=== PATIENT | female | born 1945 | race Caucasian/White ===

== ENCOUNTER → 2018-03-03 | Outpatient (CLI) | payer MEDICARE, OTHER ==
[~2018-03-03] MED LIST: ASPI-875 PO; ATOR20TA66 PO; CHOL400T24 PO; GLUC-132 PO; OMG1KC PO; ONDAN4ODT PO; PARO20TA57 PO; UBID200C PO; [UNRECOGNIZED DRUG - CODE] PO
--- NOTE | 2018-03-03 11:41 | Diagnostic Imaging Report ---
INDICATION: COUGH. TECHNIQUE: Two views of the chest COMPARISON: 01/08/2015 FINDINGS: The lung volumes are normal. No focal consolidation is seen. No large pleural effusion or pneumothorax is seen. The cardiomediastinal silhouette is normal in size and contour. No acute osseous abnormality is seen. IMPRESSION: No acute pulmonary abnormality seen. Report was called to Li/office c/o Elsi Madison by sesar at 11:40 am. Dictated by: Dictated on workstation # [id number]
== END ==
LOC: RAD 11:03
PROVIDERS: ATTEND Nurse Practitioner Family
DX: R05 Cough (principal)
CPT/HCPCS: 71046

== ENCOUNTER 2018-04-30 08:25 | Outpatient (RCR) | payer MEDICARE, OTHER | END 2018-05-02 | disposition home or self-care (01) | LOC: CR3 08:25 | PROVIDERS: ATTEND Family Medicine | DX: Z29.8 Encounter for other specified prophylactic measures (principal) ==

== ENCOUNTER → 2018-06-02 | Outpatient (RCR) | payer MEDICARE, OTHER | END | disposition home or self-care (01) | LOC: CR3 05-03 09:04 | PROVIDERS: ATTEND Family Medicine | DX: Z29.8 Encounter for other specified prophylactic measures (principal) ==

== ENCOUNTER 2018-07-02 06:21 | Outpatient (RCR) | payer MEDICARE, OTHER | END 2018-07-03 | disposition home or self-care (01) | LOC: CR3 06:21 | PROVIDERS: ATTEND Family Medicine | DX: Z29.8 Encounter for other specified prophylactic measures (principal) ==

== ENCOUNTER 2018-07-30 08:34 | Outpatient (RCR) | payer MEDICARE, OTHER | END 2018-08-05 | disposition home or self-care (01) | LOC: CR3 08:34 | PROVIDERS: ATTEND Family Medicine | DX: Z29.8 Encounter for other specified prophylactic measures (principal) ==

== ENCOUNTER 2018-10-06 08:48 | Outpatient (RCR) | payer MEDICARE, OTHER | END 2018-10-07 | disposition home or self-care (01) | LOC: CR3 08:48 | PROVIDERS: ATTEND Family Medicine | DX: Z29.8 Encounter for other specified prophylactic measures (principal) ==

== ENCOUNTER 2018-10-20 14:30 | Outpatient (CLI) | payer MEDICARE, OTHER ==
[~2018-10-20] VITALS: Ht 160 cm; Wt 82.1 kg
[2018-10-20] MEDS ORDERED: OMG1KC PO (14:44)
[2018-10-20] MEDS ORDERED: MULT-35 PO (14:57)
[2018-10-20] MEDS ORDERED: ASPI-999 PO (14:57)
[2018-10-20] MEDS ORDERED: CHOL100048 PO (14:57)
[2018-10-20] MEDS ORDERED: ATOR40TA70 PO (14:57)
[2018-10-20] MEDS ORDERED: FLUO40CA12 PO (14:57)
[2018-10-20] MEDS ORDERED: UBID100C44 PO (14:57)
== END 2018-10-20 14:59 ==
LOC: PREOP 14:30
PROVIDERS: ATTEND Surgery
DX: Z01.818 Encounter for other preprocedural examination (principal)

== ENCOUNTER 2018-10-22 12:33 | Day surgery (SDC) | payer MEDICARE, OTHER ==
[~2018-10-22] VITALS: Ht 160 cm; Wt 82.1 kg
[~2018-10-22 12:33] MED LIST changes: +ASPI-999 PO; +ATOR40TA70 PO; +CHOL100048 PO; +FLUO40CA12 PO; +MULT-35 PO; +UBID100C44 PO
[2018-10-22 12:45] VITALS: BP 136/75
[2018-10-22] MEDS ORDERED: NS IV 500 ML 500 ML IV PRN (12:53)
[2018-10-22] MEDS ORDERED: NS IV 500 ML 500 ML ONE (12:58)
[2018-10-22] MEDS ORDERED: MIDAZOLAM 2 MG/2 ML (VERSED) VIAL IVP ONE (13:00)
[2018-10-22] MEDS ORDERED: LIDOCAINE JELLY 2% 6 ML SYRINGE MM PRN (13:00)
[2018-10-22] MEDS ORDERED: fentaNYL INJECTION 100 MCG/2 ML AMP IVP ONE (13:00)
[2018-10-22] MEDS ORDERED: fentaNYL INJECTION 100 MCG/2 ML AMP ONE (14:19)
[2018-10-22] MEDS ORDERED: LIDOCAINE JELLY 2% 6 ML SYRINGE ONE (14:19)
[2018-10-22] MEDS ORDERED: MIDAZOLAM 2 MG/2 ML (VERSED) VIAL ONE ×5 (14:20)
--- NOTE | 2018-10-22 14:26 | Conscious Sedation/ASA ---
Conscious Sedation Pre-Proced Time 14:20 ASA Score 2 For ASA 3 and 4: Consider anesthesia and medical clearance. Also, for patients with a history of failed moderate sedation consider anesthesia. Airway Lungs Heart ASA score ASA 1: a normal healthy patient ASA 2: a patient with a mild systemic disease (mid diabetes, controlled hypertension, obesity ASA 3: a patient with a severe systemic disease that limits activity (angina , COPD, prior Myocardial infarction) ASA 4: a patient with an incapacitating disease that is a constant threat to life (CHF, renal failure) ASA 5: a moribund patient not expected to survive 24 hrs. (ruptured aneurysm) ASA 6: a declared brain patient whose organs are being harvested. For emergent operations, add the letter E after the classification Mallampati Classification Grade 2 Sedation Plan Analgesia, Amnesia, Plan communicated to team members, Discussed options with patient/fam, Discussed risks with patient/fam The patient is an appropriate candidate to undergo the planned procedure, sedation, and anesthesia. The patient immediately re-assessed prior to indication. UMESH SCHMITZ MD Oct 22, 2018 14:26
--- NOTE | 2018-10-22 14:27 | Progress Note-Pre Operative ---
Pre-Operative Progress Note H&P Reviewed The H&P was reviewed, patient examined and no changes noted. Date Seen by Provider: Oct 22, 2018 Time Seen by Provider: 14:20 Date H&P Reviewed: Oct 22, 2018 Time H&P Reviewed: 14:20 Pre-Operative Diagnosis: GERD, screening colonoscopy UMESH SCHMITZ MD Oct 22, 2018 14:27
--- NOTE | 2018-10-22 14:29 | Discharge Inst-Surgical ---
D/C Lap Instructions-NADIR Follow Up 10 yrs Activity as tolerated High Fiber Diet 25g or more per day Avoid Alcohol, Caffeine, Spicy [place] and Acid foods. Drink 64 fluid oz or more of fluids per day. Symptoms to Report: Fever over 101 degree F, Nausea/Vomiting If any problems/questions: Contact your physician or go to Emergency Room UMESH SCHMITZ MD Oct 22, 2018 14:29
[2018-10-22] MEDS ORDERED: ACETAMINOPHEN 325 MG TABLET PO PRN (14:30)
[2018-10-22] MEDS ORDERED: HYDROcodone/APAP 5 MG/325 MG (LORTAB) TAB PO PRN (14:30)
[2018-10-22] MEDS ORDERED: ONDANSETRON 4 MG/2 ML (SDV) Z0FRAN IV PRN (14:30)
[2018-10-22] MEDS ORDERED: morphine INJ 10 MG/ML 1ML (SYR OR VIAL) IV PRN (14:30)
[2018-10-22 15:20] VITALS: BP 145/90
[2018-10-22 16:00] VITALS: BP 140/88
[2018-10-22 16:54] VITALS: BP 140/88
--- NOTE | 2018-10-22 16:54 | Progress Note-Post Operative ---
Post-Operative Progess Note Surgeon (s)/Silk Washing Machine Operator (s) Surgeon UMESH SCHMITZ MD Silk Washing Machine Operator: none Pre-Operative Diagnosis screening colonoscopy Post-Operative Diagnosis normal colonoscopy. Procedure & Operative Findings Date of Procedure 10/22/18 Procedure Performed/Findings Colonoscopy. Anesthesia Type CS Estimated Blood Loss Estimated blood loss (mL): minimal Specimens/Packing Specimens Removed none UMESH SCHMITZ MD Oct 22, 2018 16:54
--- NOTE | 2018-10-23 03:09 | OPERATIVE REPORT ---
DATE OF SERVICE: 10/22/2018 ATTENDING PRIMARY CARE PHYSICIAN: Dr. Cook. PREOPERATIVE DIAGNOSIS: History of colon polyp. POSTOPERATIVE DIAGNOSIS: Normal colon and rectum. PROCEDURE: Colonoscopy. SURGEON: Umesh Schmitz MD ANESTHESIA: Conscious sedation. ESTIMATED BLOOD LOSS: Minimal. FINDINGS: No significant hemorrhoids. No diverticulosis. Remainder of the colon was normal with no polyps or any neoplasms identified. DISPOSITION: The patient tolerated the procedure well. INDICATIONS: The patient is a 73-year-old female who we have seen before in the past for history of colon polyps. She had a colonoscopy in 2007 where a small polyp was identified of the descending colon, which was benign. She then underwent a followup colonoscopy in 2014 and found to have mild hemorrhoids. She is otherwise doing well. Does not report any diarrhea nor constipation as well as no red blood per rectum nor any dark tarry stools. She also does not report any family history of colon cancer. DESCRIPTION OF PROCEDURE: The patient was brought to the endoscopy suite, laid in the left lateral decubitus position. After adequate IV pain and sedating medications and conscious sedation of anesthesia, a digital rectal examination was performed. No significant hemorrhoids identified. Normal sphincter tone was felt and there were no palpable masses. The endoscope was then intubated into the anus and the rectum gently insufflated. The endoscope was then advanced to the valves of Stringer of the rectum with no polyps or any neoplasms identified. Endoscope was then advanced through the sigmoid colon where no diverticulosis identified. The endoscope was then advanced to the remainder of the descending, transverse and ascending colon to the cecum. These segments were normal. There were no polyps or any neoplasms identified throughout the colon or rectum. The endoscope was then slowly withdrawn while taking a second look and suctioning of residual air with no additional findings. The patient tolerated the procedure well. We will recommend continued medical management with a high fiber diet with at least 25 grams of fiber per day as well as at least 64 fluid ounces of water daily to promote soft stools on a daily basis. No polyps were identified on this colonoscopy and she does not have any family history of colon cancer, so she may wait 10 years for her next colonoscopy, however, sooner if she becomes symptomatic. Job ID: [id number] DocumentID: [id number] Dictated Date: 10/22/2018 14:56:49 Recreation Therapy Aides Teacher Date: 10/23/2018 03:08:55 Dictated By: UMESH SCHMITZ MD
== END 2018-10-22 16:00 | disposition home or self-care (01) ==
LOC: ENDO 12:33
PROVIDERS: ATTEND Surgery
DX: Z12.11 Encounter for screening for malignant neoplasm of colon (principal); Z86.010 Personal history of colon polyps; E78.00 Pure hypercholesterolemia, unspecified; F41.9 Anxiety disorder, unspecified; F32.9 Major depressive disorder, single episode, unspecified; M85.80 Other specified disorders of bone density and structure, unspecified site; Z79.82 Long term (current) use of aspirin; Z79.899 Other long term (current) drug therapy

== ENCOUNTER 2018-11-26 10:20 | Emergency (ER) | payer MEDICARE, OTHER | END 2018-11-26 12:23 | disposition home or self-care (01) | LOC: ER 10:20 ==

== ENCOUNTER 2019-01-28 09:00 | Outpatient (RCR) | payer MEDICARE, OTHER ==
[~2019-01-28 09:00] MED LIST changes: +CEFU250T80 PO
== END 2019-01-30 | disposition home or self-care (01) ==
LOC: CR3 09:00
PROVIDERS: ATTEND Family Medicine
DX: Z29.8 Encounter for other specified prophylactic measures (principal)

== ENCOUNTER 2019-03-02 08:40 | Outpatient (RCR) | payer MEDICARE, OTHER | END 2019-03-03 | disposition home or self-care (01) | LOC: CR3 08:40 | PROVIDERS: ATTEND Family Medicine | DX: Z29.8 Encounter for other specified prophylactic measures (principal) ==

== ENCOUNTER 2019-04-01 08:34 | Outpatient (RCR) | payer MEDICARE, OTHER | END 2019-04-02 | disposition home or self-care (01) | LOC: CR3 08:34 | PROVIDERS: ATTEND Family Medicine | DX: Z29.8 Encounter for other specified prophylactic measures (principal) ==

== ENCOUNTER 2019-04-26 06:00 | Outpatient (RCR) | payer MEDICARE, OTHER | END 2019-05-04 | disposition home or self-care (01) | LOC: CR3 06:00 | PROVIDERS: ATTEND Family Medicine | DX: Z29.8 Encounter for other specified prophylactic measures (principal) ==

== ENCOUNTER → 2019-07-08 | Outpatient (RCR) | payer MEDICARE, OTHER | END | disposition home or self-care (01) | LOC: CR3 06-08 08:00 | PROVIDERS: ATTEND Family Medicine | DX: Z29.8 Encounter for other specified prophylactic measures (principal) ==

== ENCOUNTER → 2019-08-10 | Outpatient (RCR) | payer MEDICARE, OTHER | END | disposition home or self-care (01) | LOC: CR3 07-11 09:33 | PROVIDERS: ATTEND Family Medicine | DX: Z29.8 Encounter for other specified prophylactic measures (principal) ==

== ENCOUNTER 2019-09-05 09:36 | Outpatient (RCR) | payer MEDICARE, OTHER | END 2019-09-11 | disposition home or self-care (01) | LOC: CR3 09:36 | PROVIDERS: ATTEND Family Medicine | DX: Z29.8 Encounter for other specified prophylactic measures (principal) ==

== ENCOUNTER 2019-09-28 08:48 | Outpatient (RCR) | payer MEDICARE, OTHER | END 2019-10-14 | disposition home or self-care (01) | LOC: CR3 08:48 | PROVIDERS: ATTEND Family Medicine | DX: Z29.8 Encounter for other specified prophylactic measures (principal) ==

== ENCOUNTER 2019-12-02 08:56 | Outpatient (RCR) | payer MEDICARE, OTHER | END 2019-12-04 | disposition home or self-care (01) | LOC: CR3 08:56 | PROVIDERS: ATTEND Family Medicine | DX: Z29.8 Encounter for other specified prophylactic measures (principal) ==

== ENCOUNTER → 2020-01-04 | Outpatient (RCR) | payer MEDICARE, OTHER | END | disposition home or self-care (01) | LOC: CR3 12-05 09:00 | PROVIDERS: ATTEND Family Medicine | DX: Z29.8 Encounter for other specified prophylactic measures (principal) ==

== ENCOUNTER 2020-01-11 08:14 | Outpatient (RCR) | payer MEDICARE, OTHER | END 2020-02-04 | disposition home or self-care (01) | LOC: CR3 08:14 | PROVIDERS: ATTEND Family Medicine | DX: Z29.8 Encounter for other specified prophylactic measures (principal) ==

== ENCOUNTER 2022-09-29 10:01 | Outpatient (RCR) | payer MEDICARE, OTHER | END 2022-10-01 | disposition home or self-care (01) | PROVIDERS: ATTEND Anesthesiology Pain Medicine | DX: M48.062 Spinal stenosis, lumbar region with neurogenic claudication (principal); M51.36 Other intervertebral disc degeneration, lumbar region ==

== ENCOUNTER 2022-10-20 09:57 | Outpatient (RCR) | payer MEDICARE, OTHER | END 2022-10-20 12:13 | disposition home or self-care (01) | PROVIDERS: ATTEND Anesthesiology Pain Medicine | DX: M48.062 Spinal stenosis, lumbar region with neurogenic claudication (principal); M51.36 Other intervertebral disc degeneration, lumbar region ==

== ENCOUNTER 2023-02-10 09:45 | Inpatient (IN) | payer MEDICARE, OTHER ==
[~2023-02-10] VITALS: Ht 157.5 cm; Wt 75.0 kg
[2023-02-10] MEDS: SENNA W/DOCUSATE (SENOKOT S) TABLET PO SCH ×2 (09:00→20:01)
[2023-02-10] MEDS: DOCUSATE SODIUM 100 MG (COLACE) CAP PO SCH ×2 (09:00→20:01)
[2023-02-10] MEDS: polyethylene glycoL POWDER 17 GM (MIRALAX) PACK PO SCH ×2 (09:00→20:01)
[2023-02-10 09:45] VITALS: BP 118/59
[~2023-02-10 09:45] MED LIST changes: +ALPRAZolam 0.25 MG (XANAX) TAB PO PRN; +BISACODYL 10 MG SUPP (DULCOLAX) PR PRN; +CALCIUM CARBONATE 500 MG (TUMS) TAB.CHEW PO PRN; +DOCUSATE SODIUM 100 MG (COLACE) CAP PO PRN; +FLEET ENEMA ADULT 1 EA BTL PR PRN; +LACTULOSE SYRUP 10GM/15ML (ENULOSE) 30ML UDC PO PRN; +LOPERAMIDE 2 MG (IMODIUM) TABLET PO PRN; +diphenhydrAMINE 25 MG TAB (BENADRYL) PO PRN; +guaiFENesin/CODEINE (ROBITUSSIN AC) 10ML UDC PO PRN
--- NOTE | 2023-02-10 10:48 | Progress Note ---
KERVIN HARMON 02/10/23 1048: Progress Note S CC: Debility Day 7 S/P lumbar laminectomy L2-L5 & L4-L5 fusion. HPI: Patient is a 77 year old female with a history of new onset Afib w/ RVR, HLD, Anema, DDD, OA, Depression, and anxiety who is 7 days S/P L2-L5 laminectomy and L4-L5 fusion. She had the procedure on 02/03/23 for worsening of spinal stenos is and neurogenic claudication. She was recover well originally following the procedure, however developed new onset Afib w/ RVR requiring her to be placed in the [facility] for cardizem drip. She also developed transaminitis while recovering. She converted to sinus rhythm and has been maintained with Cardizem 20mg PO QD and eliquis 5mg PO BID. She transaminitis worked up w/ (-) hep c panel and normal RUQ ultrasound. Prior to procedure she was independent at home and her only limitations were associated with walking distances. She reports a chronic cough and some new left hip pain but feels well otherwise at this time. Home Meds Active Reported Co Q-10 100 mg Softgel (Ubidecarenone/Vit E Acetate) 100 Mg-5 Unit Capsule 1 Each PO HS Vitamin D3 (Cholecalciferol (Vitamin D3)) 25 Mcg (1000 Unit) Tablet 25 Mcg PO DAILY Multivitamin 1 Each Tablet 1 Each PO DAILY Fish Oil 1,000 mg Softgel ([place]-3/Dha/Epa/Fish Oil) 1,000 Mg (120 Mg-180 Mg) Capsule 1,000 Mg PO BID Prozac (Fluoxetine HCl) 40 Mg Capsule 40 Mg PO DAILY Aspirin EC (Aspirin) 81 Mg Tablet.dr 81 Mg PO DAILY Osteo Bi-Flex Tablet (Glucosamine/D3/Boswellia Maribel) 1,500 Mg-400 Unit-100 Mg Tablet 1 Each PO BID Calcium (Calcium Carbonate) 600 Mg Calcium (1500 Mg) Tablet 600 Mg PO HS Tiazac (Diltiazem HCl) 120 Mg Capsule.er 120 Mg PO DAILY Eliquis (Apixaban) 5 Mg Tablet 5 Mg PO BID Oxycodone-Acetaminophen 5-325 (Oxycodone HCl/Acetaminophen) 5 Mg-325 Mg Tablet 1-2 Each PO Q6H PRN Docusate Sodium 100 Mg Capsule 100 Mg PO BID PMH: New onset Afib w/ RVR, DDD, spinal stenosis, HLD, anemia, OA, depression, anxiety PSH: 2 C-sections, cholecystectomy, Right total hip rx All: promethazine FH: Mother: DM, heart disease Father: CVA SH: Denies tobacco, alcohol, or illicit drug use. She is retired from being a teacher preschool ROS: (+) Cough, left hip pain (-) LH, CP, palpitations, abd pain, N/V/D, weakness/numbness of arms or legs O Temp: 36.5 HR: 72 RR: 20 BP: 118/59 Pulse Ox: 95% RA General: A/O x 3, No acute distress HEENT: PERRLA, EOMI Neck: Supple, no thyromegally Lungs: Clear to auscultation bilaterally, no wheezes, rales, or rhonchi Heart: RRR, No murmurs Abd: Soft, nontender, nondistended. Normoactive bowel sounds. Back: Back brace in place Extremeties: 4-5/5 strength throughout. Skin: Warm and dry Psych/Mental Status: Normal mood A Day 7 S/P L2-L5 lumbar laminectomy and L4-L5 fusion Anemia Paroxysmal Afib w/ RVR Transaminitis HLD OA Depression Anxiety P PT/OT for rehabilitation Continue home medications NSR at this time. Continue Cardizem 120mg PO QD and Eliquis 5mg PO BID Monitor LFT's Diet: as tolerated REGI RUBI DO 02/11/23 0455: Supervisory-Addendum Brief Verification & Attestation Participated in pt care: history, MDM, physical Personally performed: exam, history, MDM, supervision of care Care discussed with: Medical Student Procedures: n/a Results interpretation: Verified all documentation Verification and Attestation of Medical Student E/M Service A medical student performed and documented this service in my presence. I reviewed and verified all information documented by the medical student and made modifications to such information, when appropriate. I personally performed the physical exam and medical decision making. Regi Rubi Feb 11, 2023,04:54 KERVIN HARMON Feb 10, 2023 10:48 REGI RUBI DO Feb 11, 2023 04:55
[2023-02-10] MEDS ORDERED: ASPI-1238 PO (11:14)
[2023-02-10] MEDS ORDERED: MULT-1136 PO (11:14)
[2023-02-10] MEDS ORDERED: CHOL-34 PO (11:14)
[2023-02-10] MEDS ORDERED: FLUO40CA12 PO (11:14)
[2023-02-10] MEDS ORDERED: APIX5TAB PO (11:14)
[2023-02-10] MEDS ORDERED: OMEG100032 PO (11:14)
[2023-02-10] MEDS ORDERED: GLUC-219 PO (11:14)
[2023-02-10] MEDS ORDERED: OXYC1TAB11 PO (11:14)
[2023-02-10] MEDS ORDERED: UBID1CAP53 PO (11:14)
[2023-02-10] MEDS ORDERED: DOCU100C37 PO (11:14)
[2023-02-10] MEDS ORDERED: DILT-8 PO (11:14)
[2023-02-10] MEDS ORDERED: CALC600T91 PO (11:14)
--- NOTE | 2023-02-10 11:38 | PM&R Post Admission Assessment ---
PM&R HP Date of Visit: Feb 10, 2023 Time of Visit: 11:00 History of Present Illness CC: Debility Day 7 S/P lumbar laminectomy L2-L5 & L4-L5 fusion. HPI: Patient is a 77 year old female with a history of new onset Afib w/ RVR, HLD, Anema, DDD, OA, Depression, and anxiety who is 7 days S/P L2-L5 laminectomy and L4-L5 fusion. She had the procedure on 02/03/23 for worsening of spinal stenosis and neurogenic claudication. She was recover well originally following the procedure, however developed new onset Afib w/ RVR requiring her to be placed in the [facility] for cardizem drip. She also developed transaminitis while recovering. She converted to sinus rhythm and has been maintained with Cardizem 120mg PO QD and eliquis 5mg PO BID. She transaminitis worked up w/ (-) hep c panel and normal RUQ ultrasound. Prior to procedure she was independent at home and her only limitations were associated with walking distances. She reports a chronic cough and some new left hip pain but feels well otherwise at this time. Home Meds Active Reported Co Q-10 100 mg Softgel (Ubidecarenone/Vit E Acetate) 100 Mg-5 Unit Capsule 1 Each PO HS Vitamin D3 (Cholecalciferol (Vitamin D3)) 25 Mcg (1000 Unit) Tablet 25 Mcg PO DAILY Multivitamin 1 Each Tablet 1 Each PO DAILY Fish Oil 1,000 mg Softgel ([place]-3/Dha/Epa/Fish Oil) 1,000 Mg (120 Mg-180 Mg) Capsule 1,000 Mg PO BID Prozac (Fluoxetine HCl) 40 Mg Capsule 40 Mg PO DAILY Aspirin EC (Aspirin) 81 Mg Tablet.dr 81 Mg PO DAILY Osteo Bi-Flex Tablet (Glucosamine/D3/Boswellia Maribel) 1,500 Mg-400 Unit-100 Mg Tablet 1 Each PO BID Calcium (Calcium Carbonate) 600 Mg Calcium (1500 Mg) Tablet 600 Mg PO HS Tiazac (Diltiazem HCl) 120 Mg Capsule.er 120 Mg PO DAILY Eliquis (Apixaban) 5 Mg Tablet 5 Mg PO BID Oxycodone-Acetaminophen 5-325 (Oxycodone HCl/Acetaminophen) 5 Mg-325 Mg Tablet 1-2 Each PO Q6H PRN Docusate Sodium 100 Mg Capsule 100 Mg PO BID PMH: New onset Afib w/ RVR, DDD, spinal stenosis, HLD, anemia, OA, depression, anxiety PSH: 2 C-sections, cholecystectomy, Right total hip rx All: promethazine FH: Mother: DM, heart disease Father: CVA SH: Denies tobacco, alcohol, or illicit drug use. She is retired from being a school leader ROS: (+) Cough, left hip pain (-) LH, CP, palpitations, abd pain, N/V/D, weakness/numbness of arms or legs O Temp: 36.5 HR: 72 RR: 20 BP: 118/59 Pulse Ox: 95% RA General: A/O x 3, No acute distress HEENT: PERRLA, EOMI Neck: Supple, no thyromegally Lungs: Clear to auscultation bilaterally, no wheezes, rales, or rhonchi Heart: RRR, No murmurs Abd: Soft, nontender, nondistended. Normoactive bowel sounds. Back: Back brace in place Extremeties: 4-5/5 strength throughout. Skin: Warm and dry Psych/Mental Status: Normal mood A Day 7 S/P L2-L5 lumbar laminectomy and L4-L5 fusion Anemia Paroxysmal Afib w/ RVR Transaminitis HLD OA Depression Anxiety P PT/OT for rehabilitation Continue home medications NSR at this time. Continue Cardizem 120mg PO QD and Eliquis 5mg PO BID Monitor LFT's Diet: as tolerated Past Afbibxw-Lbwpnf-Cpzwew Hx Past Med/Social Hx: Reviewed Nursing Past Med/Soc Hx, Reviewed and Corrections made Patient Social History Marrital Status: Employed/Student: retired Alcohol Use: Denies Use Smoking Status: Never a Smoker Recent Hopitalizations: No Immunizations Up To Date Date of Pneumonia Vaccine: Aug 09, 2018 Date of Influenza Vaccine: Aug 09, 2018 Seasonal Allergies Seasonal Allergies: No Past Medical History Surgeries: Gallbladder, Orthopedic Cardiac: Atrial Fibrillation, High Cholesterol Reproductive: No Sexually Transmitted Disease: No HIV/AIDS: No Musculoskeletal: Arthritis, Chronic Back Pain Loss of Vision: Bilateral Hearing Impairment: Denies Psychosocial: Anxiety, Depression History of Blood Disorders: No Adverse Reaction to Blood [place]: No (N/A) PM&R Allergy/Meds/Data Review Allergies Coded Allergies: promethazine (Verified Allergy, Mild, ANXIETY/JITTERS, 10/20/18) Home Medications Scheduled Apixaban (Eliquis), 5 MG PO BID, (Reported) Aspirin (Aspirin EC), 81 MG PO DAILY, (Reported) Calcium Carbonate (Calcium), 600 MG PO HS, (Reported) Cholecalciferol (Vitamin D3) (Vitamin D3), 25 MCG PO DAILY, (Reported) Diltiazem HCl (Tiazac), 120 MG PO DAILY, (Reported) Docusate Sodium (Docusate Sodium), 100 MG PO BID, (Reported) Fluoxetine HCl (Prozac), 40 MG PO DAILY, (Reported) Glucosamine/D3/Boswellia Maribel (Osteo Bi-Flex Tablet), 1 EACH PO BID, (Reported) Multivitamin (Multivitamin), 1 EACH PO DAILY, (Reported) [place]-3/Dha/Epa/Fish Oil (Fish Oil 1,000 mg Softgel), 1,000 MG PO BID, (Reported) Ubidecarenone/Vit E Acetate (Co Q-10 100 mg Softgel), 1 EACH PO HS, (Reported) Scheduled PRN Oxycodone HCl/Acetaminophen (Oxycodone-Acetaminophen 5-325), 1-2 EACH PO Q6H PRN for PAIN-MODERATE (5-7), (Reported) Discontinued Medications Aspirin (Aspirin), 81 MG PO DAILY, (Reported) Discontinued Reason: Duplicate Order Atorvastatin Calcium (Atorvastatin Calcium), 40 MG PO DAILY, (Reported) Discontinued Reason: Duplicate Order Cefuroxime Axetil (Cefuroxime), 250 MG PO BID Discontinued Reason: Duplicate Order Cholecalciferol (Vitamin D3) (Vitamin D), 1,000 UNIT PO DAILY, (Reported) Discontinued Reason: Duplicate Order Fluoxetine HCl (Prozac), 40 MG PO DAILY, (Reported) Discontinued Reason: Duplicate Order Multivitamin (Daily Multiple Vitamin), 1 EACH PO DAILY, (Reported) Discontinued Reason: Duplicate Order [place] 3 Polyunsat Fatty Acids (Fish Oil 1,000 mg Capsule), 1,000 MG PO TID, (Reported) Discontinued Reason: Duplicate Order Ubidecarenone (Co Q-10), 100 MG PO DAILY, (Reported) Discontinued Reason: Duplicate Order Current Medications Current Medications Reviewed Review of Systems Constitutional: see HPI, malaise, weakness EENTM: no symptoms reported Respiratory: no symptoms reported Cardiovascular: no symptoms reported Gastrointestinal: constipation Genitourinary: no symptoms reported Musculoskeletal: back pain Skin: no symptoms reported Psychiatric/Neurological: Anxiety, Depressed All Other Systems Reviewed Negative Unless Noted: Yes Physical Exam Physical Exam Vital Signs Vital Signs - First Documented 02/10/23 09:45 Temp 36.5 Pulse 72 Resp 20 B/P (MAP) 118/59 (78) Pulse Ox 95 O2 Delivery Room Air Capillary Refill : Height, Weight, BMI Height: 5'2.00" Weight: 180lbs. 0.0oz. [id number]; 30.23 BMI Method:Stated General Appearance: No Apparent Distress, WD/WN, Anxious, Chronically ill Eyes: Bilateral Eye Normal Inspection, Bilateral Eye PERRL HEENT: PERRL/EOMI, Normal ENT Inspection, Pharynx Normal Neck: Full Range of Motion, Normal Inspection, Non Tender, Supple, Carotid Bruit Respiratory: Chest Non Tender, Lungs Clear, Normal Breath Sounds, No Accessory Muscle Use, No Respiratory Distress Cardiovascular: Regular Rate, Rhythm, No Edema, No Gallop, No JVD, No Murmur, Normal Peripheral Pulses Gastrointestinal: Normal Bowel Sounds, No Organomegaly, No Pulsatile Mass, Non Tender, Soft Back: Normal Inspection, No Vertebral Tenderness, Decreased Range of Motion, Muscle Spasm, Vertebral Tenderness Extremity: Normal Capillary Refill, Normal Inspection, Normal Range of Motion, Non Tender, No Calf Tenderness, No Pedal Edema Neurologic/Psychiatric: Alert, Oriented x3, No Motor/Sensory Deficits, chief dispatcher II- XII Norm as Tested, Depressed Affect Skin: Normal Color, Warm/Dry Lymphatic: No Adenopathy PM&R Medical Assessment & Plan REHAB/MEDICAL ASSESSMENT AND PLAN: REHAB IMPAIRMENT GROUP: Debility from lumbar stenosis with neurogenic claudication ETIOLOGIC DIAGNOSIS: Debility from lumbar stenosis with neurogenic claudication The comorbidities that impact the patients function and/or functional outcome by: post op AF, fall risk, back pain, elevated LFT's REHAB PLAN: The patient is being admitted to our comprehensive inpatient rehabilitation facility and can tolerate the intensity of service consisting of at least: 180 minutes of therapy a day, 5 out of 7 days a week Rehab treatment will consist of: PT OT will focus on regaining function with use of AD in order to regain independence and ultimately return home The patient/family has a good understanding of our discharge process and will benefit from an interdisciplinary inpatient rehabilitation program. The patient has potential to make improvement and is in need of at least two of the following multidisciplinary therapies including but not limited to physical, occupational, speech, and prosthetics and orthotics. Additionally the patient will need services from respiratory, nutritional services, wound care, psychology, etc. (Customize this to each patient). Given the patients complex condition and risk of further medical complications, rehabilitation services cannot be safely or effectively provided at a lower level of care such as a assisted facility. BARRIERS TO DISCHARGE: Slow recovery with back pain ESTIMATED LOS: 7 days DISPOSITION: Home RELEVANT CHANGES SINCE PREADMISSION SCREENING: I have compared the patients medical and functional status at the time of the preadmission screening and there are: no changes PROGNOSIS: Good REHABILITATION GOALS: 1. PT OT will focus on regaining function with use of AD in order to regain independence and ultimately return home All the above goals were reviewed with the patient and he/she is in agreement. By signing this document, I acknowledge that I have personally performed a full physical examination on this patient within 24 hours of admission to this inpatient rehabilitation facility and have determined the patient to be able to tolerate the above course of treatment at an intensive level for a reasonable period of time. I will be completing a detailed individualized Plan of Care for this patient by day #4 of the patients stay based upon the Preadmission Screen, the Post-Admission Evaluation, and the therapy evaluations. Admission Dx/Comorbidities: (1) Lumbar stenosis without neurogenic claudication ICD Codes: M48.061 - Spinal stenosis, lumbar region without neurogenic claudication Assessment/Plan Assessment and Plan Assess & Plan/Chief Complaint Assessment: S/P L2-L5 lumbar laminectomy and L4-L5 fusion 02/02/2023 Anemia Paroxysmal Afib w/ RVR new onset post op Transaminitis HLD OA Depression Anxiety P PT/OT for rehabilitation Continue home medications NSR at this time. Continue Cardizem 120mg PO QD and Eliquis 5mg PO BID Monitor LFT's PATRICIA RUBI DO Feb 10, 2023 11:38
[2023-02-10] MEDS ORDERED: HYPOCHLOROUS ACID/NaCl (VASHE) 250 ML IR PRN (11:45)
--- NOTE | 2023-02-10 11:53 | Occupational Therapy Eval ---
OT Evaluation-General/PLF Medical Diagnosis Admission Date Feb 10, 2023 at 09:45 Medical Diagnosis: s/p decompressive Lami L2-5 Onset Date: Feb 03, 2023 Therapy Diagnosis Therapy Diagnosis: decreased ADL status Height/Weight Height (Feet): 5 Height (Inches): 2.00 Weight (Pounds): 180 Weight (Ounces): 0.0 Precautions Comments Back Brace OOB, back precautions Referral Physician: Arlet Referral Reason: Evaluation/Treatment Medical History Additional Medical History arthritis, anxiety/depression, new onset afib with RVR, DDD, spinal stenosis, HLD, anemia, OA, R total hip Current History 02/03/23 s/p decompressive lami L2-5. s/p 1uPRBC 02/05 & new onset afib with RVR 02/06. acute liver injury/transaminitis s/p 1L NS. Pt transferred to ARU 02/10/23 Social History Home: Single Level Current Living Status: Spouse Entry Into Home: Ramp, Stairs With Railing Steps Into Home: 4 ADL-Prior Level of Function SCALE: Activities may be completed with or without assistive devices. 5-Rmrbanwhby-crsovbl completes the activity by him/herself with no assistance from a helper. 5-Set-up or Clean-up Assistance-helper sets up or cleans up; patient completes activity. Gordon assists only prior to or following the activity. 4-Supervision or Touching Assistance-helper provides verbal cues and/or touchi ng/steadying and/or contact guard assistance as patient completes activity. Assistance may be provided throughout the activity or intermittently. 3-Partial/Moderate Assistance-helper does LESS THAN HALF the effort. Gordon lifts, holds or supports trunk or limbs, but provides less than half the effort. 2-Substantial/Maximal Assistance-helper does MORE THAN HALF the effort. Gordon lifts or holds trunk or limbs and provides more than half the effort. 2-Kcclnhbol-hbshpb does ALL the effort. Patient does none of the effort to complete the activity. Or, the assistance of 2 or more helpers is required for the patient to complete the activity. If activity was not attempted, code reason: 7-Patient Refused. 9-Not Applicable-not attempted and the patient did not perform the activity before the current illness, exacerbation or injury. 10-Not Attempted due to Environmental Limitations-(lack of equipment, weather restraints, etc.). 88-Not Attempted due to Medical Conditions or Safety Concerns. ADL PLOF Comments Pt reports IND with ADLs and functional mobility at PLOF, no AD. She has a tub/shower and a walk in shower, no SC Self Care: Independent Functional Cognition: Independent DME/Equipment: Shower, Tub/Shower OT Current Status Subjective Pt agreeable to OT evaluation followed by OT/PT cotreat. Rates pain 7/10, in back and legs (worse in L leg) Mental Status/Objective Patient Orientation: Normal For Age Attachments: Other-See Comments (back brace) Current Glasses/Contacts: Yes Hearing Aids: No Dentures/Partials: No Hand Dominance: Right Upper Extremity ROM WFL, BUE shoulder flexion to approx 160 degrees Upper Extremity Coordination WFL Upper Extremity Sensation WFL, Upper Extremity Strength Not formally tested due to back precautions, ~3+/5 ADL-Treatment Eating (QC): 6 Oral Hygiene (QC): 4 (CGA) Shower/Bathe Self (QC): 4 (CGA) Upper Body Dressing (QC): 3 (Min A with back brace) Lower Body Dressing (QC): 3 (min A with pant hike.) On/Off Footwear (QC): 4 (SBA) Toileting Hygiene (QC): 3 (Min A with pant hike.) Other Treatments OT evaluation complete. Pt demonstrated ability to don/doff back brace and anthony twear. Pt declined showering and other ADLS, as she had completed at OSH prior to admission to ARU. Pt provided information about level of assistance required this AM with ADLs. OT/PT cotreat due to skill of 2 clinicians required which a rehab assistant could not perform in order to coordinate UE/LEs, decrease fall risk, and due to pt's limitations in strength, activity tolerance, pain, mobility/transfers. OT focused on UE placement, cues for sequencing and safety and ADLs. PT focused on LE placement, gross overall movement, transfers and mobility. Pt performed functional mobility and transfers around ARU common area/2nd floor, including bed mobility, uneven surface and steps. Pt returned to her room, transferring to recliner. Post tx, pt in recliner, call light in reach and all needs met. Pt requires min A with rolling, supine to/from sit, toilet transfer and car transfer, CGA with sit to stand and bed to chair transfers. CGA with functional mobility 250' with FWW, Min A on uneven surface. Education OT Patient Education: Correct positioning, Energy conservation, Modified ADL techniques, Progress toward Goal/Update tx plan, Purpose of tx/functional activities, Rehab process Teaching Recipient: Patient Teaching Methods: Discussion Response to Teaching: Verbalize Understanding BIMS CAM BIMS Expression of Ideas and Wants: Without Difficulty Understanding Verbal Content: Understands Brief Interview/Mental Status: Yes IRF CHARLES BIMS: IRF CHARLES BIMS Response (Comments) Value Repitition of Three Words Three 3 Recalls Socks Yes, No Cue Required 2 Recalls Blue Yes, No Cue Required 2 Recalls Bed Yes, No Cue Required 2 Year Correct 3 Month Accurate Within 5 Days 2 Day Correct 1 Total 15 Should Staff Asses. Mental [address] No CAM Mental Status Change/Baseline: 0 Inattention: 0 Disorganized thinkin Altered level of consciousness: 0 OT Short Term Goals Short Term Goals Time Frame: Feb 18, 2023 Toileting hygiene: 5 Shower/bathe self: 5 Upper body dressin Lower body dressin Putting on/taking off footwear: 5 OT Pharmaceutical Process Engineer Goals Longterm Goals Time Frame: Feb 27, 2023 Eating (QC): 6 Oral Hygiene (QC): 6 Toileting Hygiene (QC): 6 Shower/Bathe Self (QC): 5 Upper Body Dressing (QC): 6 Lower Body Dressing (QC): 6 On/Off Footwear (QC): 6 Additional Goals: 1-Demonstrate ADL Tasks, 2-Verbalize Understanding, 3- ImproveStrength/Nicky 1=Demonstrate adherence to instructed precautions during ADL tasks. 2=Patient will verbalize/demonstrate understanding of assistive devices/modifications for ADL. 3=Patient will improve strength/tolerance for activity to enable patient to perform ADL's. OT Education/Plan Problem List/Assessment Assessment: Decreased Activ Tolerance, Decreased UE Strength, Impaired Funct Balance, Impaired I ADL's, Impaired Self-Care Skills Discharge Recommendations Plan/Recommendations: Continue POC Equpiment Recommendations-D/C: Bath Chair Treatment Plan/Plan of Care Patient would benefit from OT for education, treatment and training to promote independence in ADL's, mobility, safety and/or upper extremity function for ADL's. Plan of Care: ADL Retraining, Functional Mobility, Group Exercise/Act as Ind, UE Funct Exercise/Act Treatment Duration: Feb 27, 2023 Frequency: At least 5 of 7 days/Wk (IRF) Estimated Hrs Per Day: 1.5 hours per day Agreement: Yes Rehab Potential: Good Time Start Time: 10:30 Stop Time: 12:00 DATE: Feb 10, 2023 Total Time Billed (hr/min): 90 Billed Treatment Time OT eval/tx [id number], Cotreat [id number] 1, EVM (10'), ADL 2 (30'), FA 3 (50') ADRYAN QUICK OT Feb 10, 2023 11:53
--- NOTE | 2023-02-10 11:56 | Physical Therapy Evaluation ---
PT Evaluation-General Medical Diagnosis Admission Date Feb 10, 2023 at 09:45 Medical Diagnosis: s/p L2-L5 laminectomy, L4-5 fusion 02/03/23. Onset Date: Feb 03, 2023 Therapy Diagnosis Therapy Diagnosis: low back/(L) groin pain, impaired gait/bed mobility/functional mobility Height/Weight Height (Feet): 5 Height (Inches): 2.00 Weight (Pounds): 180 Weight (Ounces): 0.0 Precautions Precautions/Isolations: Fall Prevention, Standard Precautions Spinal TLSO on OOB. Weight Bear Status Weight Bearing/Tolerated Weight Bearing/Tolerated Referral Physician: Arlet Reason for Referral: Evaluation/Treatment Medical History Pertinent Medical History: Atrial Fib, Arthritis Current History :RVR with afib, HLD, liver injury 02/07, transfused and 02/06/23, arthritis, chronic anemia, anxiety, depression, DDD, PSH: candy, (R) THR posterior, c- section 2, colonoscopy. Reviewed History: Yes Social History Home: Single Level Current Living Status: Spouse Entry Into Home: Ramp, Stairs With Railing (at all entrances) Prior Prior Level of Function SCALE: Activities may be completed with or without assistive devices. 6-Mniffgdsvv-pfvoivy completes the activity by him/herself with no assistance from a helper. 5-Set-up or Clean-up Assistance-helper sets up or cleans up; patient completes activity. [place] assists only prior to or following the activity. 4-Supervision or Touching Assistance-helper provides verbal cues and/or touching/steadying and/or contact guard assistance as patient completes activity. Assistance may be provided throughout the activity or intermittently. 3-Partial/Moderate Assistance-helper does LESS THAN HALF the effort. [place] lifts, holds or supports trunk or limbs, but provides less than half the effort. 2-Substantial/Maximal Assistance-helper does MORE THAN HALF the effort. [place] lifts or holds trunk or limbs and provides more than half the effort. 7-Rolatwnra-cbywyb does ALL the effort. Patient does none of the effort to complete the activity. Or, the assistance of 2 or more helpers is required for the patient to complete the activity. If activity was not attempted, code reason: 7-Patient Refused. 9-Not Applicable-not attempted and the patient did not perform the activity before the current illness, exacerbation or injury. 10-Not Attempted due to Environmental Limitations-(lack of equipment, weather restraints, etc.). 88-Not Attempted due to Medical Conditions or Safety Concerns. Bed Mobility: 6 Transfers (B,C,W/C): 6 Gait: 6 Stairs: 6 Wheelchair Mobility: 9 Indoor Mobility (Ambulation): Independent Stairs: Independent Prior Devices Use: None PT Evaluation-Current Subjective Pain with sit>stand transitions in low back. Also has new (L) groin/thigh pain - deep ache - new since surgery. Rated at 5-6/10 when she transferred from vehicle. Rated as 6-7/10 following PT evaluation. Pain Section J - Health Conditions 1. Rarely or not at all 2. Occasionally 3. Frequently 4. Almost constantly 8. Unable to answer Pain Effect on Sleep: 3 Pain Interference with Therapy: 3 Pain Interference w/Day-to-Day: 3 Pt/Family Goals To return home with and be as (I) as possible. had TKR in October 2022 and is slow and will not be much help per patient. Objective Patient Orientation: Person, Place, Time, Situation Has hard time staying comfortable during evaluation - even in recliner her legs were constantly moving in an attempt to get comfortable. ROM/Strength Strength Lower Extremities MMT sitting EOB: ankles 4+/5 DF/PF knee flexion 4/5 (B), knee extension 4/5 (B) Hip flexion (R) 3+/5 with increased (L) groin discomfort, hip flexion (L) 3+/5 Hip abduction 3+/5 (B), hip adduction 3+/5 (B). Integumentary/Posture Integumentary Midline incision to lumbar spine - assisted nursing in dressing change and i sland dressing applied. Sensory Vision: Wears Glasses Hearing: Functional Sensation Right Lower Extremit: Intact Sensation Left Lower Extremity: Intact Sensation Lower Extremities no c/o numbness/tingling/pins and needles in LE's currently, nor did she have any of these issues prior to surgery. Transfers Roll Left & Right (QC): 3 (min (A) with cues/assist for log roll technique) Sit to Lying (QC): 3 (Min (A) for LE's to prevent twisting.) Lying to Sitting/Side of Bed(Q: 3 (Min (A) to lift trunk to upright position) Sit to Stand (QC): 4 (CGA to FWW) Chair/Afu-ip-Gilbc Xfer(QC): 4 (CGA with FWW) Toilet Transfer (QC): 3 (min (A) with grab bars and FWW x 2) Car Transfer (QC): 3 (Min (A) ) TLSO on for all activity Gait Does the Patient Walk?: Yes Mode of Locomotion: Walk Anticipated Mode of Locomotion: Walk Walk 10 feet (QC): 4 (CGA) Walk 50 ft with 2 Turns(QC): 4 (CGA) Walk 150 ft (QC): 4 (CGA with FWW) Walking 10ft/uneven surface-QC: 3 (min (A) with FWW) Distance: 250' with FWW Gait Assistive Device: FWW Comments/Gait Description Slow carlos, but steady no LOB. Wheelchair Training Does the Pt Use a Wheelchair?: No Wheel 50 ft with 2 turns (QC): 9 Wheel 150 ft (QC): 9 Stairs #of Steps: 6 1 Step (curb) (QC): 3 (Min (A) with cues for walker placement) 4 Steps (QC): 3 (Min (A) with cues for stepping strategy, (B) handrails.) 12 Steps (QC): 88 (NT due to pain /p transfer and not yet getting pain meds.) Walking Assistive Device: Walker Balance Sitting Static: Good Sitting Dynamic: Fair Standing Static: Fair Standing Dynamic: Fair Picking up an Object (QC): 5 (with FWW and space sciences director) Special Test Comments TU.9 sec with FWW and TLSO Assessment/Needs Patient with pain in low back and (L) groin s/p L2-5 laminectomy and L4-5 fusion on 02/03/23. Has resultant mobility precaution with TLSO on when OOB and gait/transfer/bed mobility deficits. Would benefit from PT for education on spine precautions, LE/endurance exercise, transfers/bed mobility training, gait/stair training in preparation for return home with . Patient would also benefit from co-treatment prn due to high post-op pain, limited endurance and multiple deficit areas that require 2 skilled therapist to address safely. Rehab Potential: Good Equipment Needs TLSO, FWW PT Letterpress Setter Goals Chcf Goals PT Chcf Goals Time Frame: Feb 27, 2023 Roll Left to Right (QC): 6 (with use of bed rail/walker for rail) Sit to Lying (QC): 6 (with use of bed rail/walker for rail) Lying-Sitting on Side/Bed(QC): 6 (with use of bed rail/walker for rail) Sit to Stand (QC): 6 Chair/Ega-su-Zvelm Xfer(QC): 6 (with FWW) Toilet/Commode Transfer (QC): 6 (with FWW ) Car Transfer (QC): 5 (with FWW) Does the Patient Walk: Yes Walk 10 feet (QC): 6 (with FWW and TLSO) Walk 10ft-Uneven Surface(QC): 6 (with FWW and TLSO) Walk 50ft with 2 Turns (QC): 6 (with FWW and TLSO) Walk 150 ft (QC): 6 (500' with FWW and TLSO) Does the Pt use WC or Scooter?: No Wheel 50 feet with 2 turns (QC: 9 Wheel 150 feet: 9 1 Step (curb) (QC): 6 4 Steps (QC): 6 (with railings) 12 Steps (QC): 5 (with railings) Picking up an Object (QC): 6 (with space sciences director due to spine precautions) TUG score improved to less than 30 seconds with FWW. (initially was 34.9 sec) PT Plan Problem List Problem List: Activity Tolerance, Functional Strength, Safety, Balance, Gait, Transfer, Bed Mobility, ROM, Other (stair/curb mobility) Treatment/Plan Treatment Plan: Continue Plan of Care Treatment Plan: Bed Mobility, Education, Functional Activity Nicky, Functional Strength, Group Therapy, Gait, Safety, Therapeutic Exercise, Transfers, Other (stair/curb training) Treatment Duration: Feb 27, 2023 Frequency: At least 5 of 7 days/Wk (IRF) Estimated Hrs Per Day: 1.5 hours per day Patient and/or Family Agrees t: Yes Safety Risks/Education Safety Risk Comments: spine precautions (no bending, lifting, twisting), TLSO when OOB Patient Education: Gait Training, Transfer Techniques, Reviewed Precautions, Reviewed Don/Doff Brace Teaching Recipient: Patient Teaching Methods: Demonstration, Discussion Response to Teaching: Verbalize Understanding, Reinforcement Needed Discharge Recommendations Plan To return home with and support services. Therapy Discharge Recommendati: Home & Family, Post Acute PT Equpiment Recommendations-D/C: Front Wheeled Walker Time Time In: 938 (Co-treat: 1100) Time Out: 958 (Co-treat: 1200) DATE: Feb 10, 2023 Total Billed Treatment Time: 80 Total Billed Treatment 9:38-9:58 = 20' EVM 11:00-12:00 = 60 minute co-treat -- necessary due to patient's pain level, acuity and multiple deficits which required 2 skilled therapists to address and maintain patient safety Jennifer Morris PT Feb 10, 2023 11:56
[2023-02-10] MEDS: oxyCODONE/APAP 5/325MG (PERCOCET 5) TABLET PO PRN ×2 (11:57→19:35)
--- NOTE | 2023-02-10 15:51 | Physical Therapy Daily Note ---
PT Daily Note-Current Subjective Patient has been resting in bed for ~45' following lunch and visitors. She is willing to work with PT this p.m. Pain Section J - Health Conditions 1. Rarely or not at all 2. Occasionally 3. Frequently 4. Almost constantly 8. Unable to answer Pain Effect on Sleep: 2 Pain Interference with Therapy: 2 Pain Interference w/Day-to-Day: 3 Transfers SCALE: Activities may be completed with or without assistive devices. 1-Nxvhwacpdr-nbrflnx completes the activity by him/herself with no assistance from a helper. 5-Set-up or Clean-up Assistance-helper sets up or cleans up; patient completes activity. [facility] assists only prior to or following the activity. 4-Supervision or Touching Assistance-helper provides verbal cues and/or touching/steadying and/or contact guard assistance as patient completes activity. Assistance may be provided throughout the activity or intermittently. 3-Partial/Moderate Assistance-helper does LESS THAN HALF the effort. [facility] lifts, holds or supports trunk or limbs, but provides less than half the effort. 2-Substantial/Maximal Assistance-helper does MORE THAN HALF the effort. [facility] lifts or holds trunk or limbs and provides more than half the effort. 8-Akdlmszgh-pudvxd does ALL the effort. Patient does none of the effort to complete the activity. Or, the assistance of 2 or more helpers is required for the patient to complete the activity. If activity was not attempted, code reason: 7-Patient Refused. 9-Not Applicable-not attempted and the patient did not perform the activity before the current illness, exacerbation or injury. 10-Not Attempted due to Environmental Limitations-(lack of equipment, weather restraints, etc.). 88-Not Attempted due to Medical Conditions or Safety Concerns. Roll Left & Right (QC): 4 (cues for bending opposite leg to push and using opposite arm to pull to maintain log rolling to (R) and (L) x 2. Able to perform 2nd set without cues with use of bed rail and maintain spinal pr ecautions. ) Lying to Sitting/Side of Bed(Q: 4 (Cues to roll to (L) side, bring legs off edge of bed, then CGA-steadying assist to come to sitting position pushing up with (L) elbow/arms.) Sit to Stand (QC): 4 (Steadying assist x 4 - once from EOB, x 3 from arm chair. Pushes up with 1 arm with opposite arm on walker.) Chair/Ymi-lq-Juyky Xfer(QC): 4 (Steadying assist with FWW) Patient able to kiran TSLO with cues only for tightening straps. Weight Bearing Weight Bearing/Tolerated Weight Bearing/Tolerated Gait Training Distance: Patient ambulate 200' with FWW CGA-SBA with slow carlos. Walk 10 feet (QC): 4 (performed TUG x 2 with FWW. Time decreased to 32.7 seconds compared to eval time of 34.9 sec with FWW) Gait Assistive Device: FWW Assessment Tolerated pm OOB activity well without pain increase. PT Editor [employer] Goals Editor [employer] Goals PT Editor [employer] Goals Time Frame: Feb 27, 2023 Roll Left & Right (QC): 6 (with use of bed rail/walker for rail) Sit to Lying (QC): 6 (with use of bed rail/walker for rail) Lying-Sitting on Side/Bed(QC): 6 (with use of bed rail/walker for rail) Sit to Stand (QC): 6 Chair/Ldu-ca-Meugj Xfer(QC): 6 (with FWW) Toilet Transfer (QC): 6 (with FWW ) Car Transfer (QC): 5 (with FWW) Does the Patient Walk: Yes Walk 10 feet (QC): 6 (with FWW and TLSO) Walk 50ft with 2 Turns (QC): 6 (with FWW and TLSO) Walk 150 ft (QC): 6 (500' with FWW and TLSO) Walking 10ft on Uneven Surface: 6 (with FWW and TLSO) 1 Step (curb) (QC): 6 4 Steps (QC): 6 (with railings) 12 Steps (QC): 5 (with railings) Picking up an Object (QC): 6 (with hull molder due to spine precautions) Does the Pt use WC or Scooter?: No Wheel 50 feet with 2 turns (QC: 9 Wheel 150 feet: 9 PT Plan Problem List Problem List: Activity Tolerance, Functional Strength, Safety, Balance, Gait, Transfer, Bed Mobility, ROM, Other (stair/curb mobility) Treatment/Plan Treatment Plan: Continue Plan of Care Treatment Plan: Bed Mobility, Education, Functional Activity Nicky, Functional Strength, Group Therapy, Gait, Safety, Therapeutic Exercise, Transfers, Other (stair/curb training) Treatment Duration: Feb 27, 2023 Frequency: At least 5 of 7 days/Wk (IRF) Estimated Hrs Per Day: 1.5 hours per day Patient and/or Family Agrees t: Yes Time Time In: 1415 Time Out: 1435 DATE: Feb 10, 2023 Total Billed Treatment Time: 20 Total Billed Treatment 20' FA Jennifer Morris PT Feb 10, 2023 15:51
[2023-02-10] MEDS: CALCIUM CARBONATE 600 MG (CALCARB) TAB PO SCH (17:05)
[2023-02-10 20:30] VITALS: BP 138/65
[2023-02-10] MEDS: APIXABAN 5 MG (ELIQUIS) TABLET PO SCH (20:33)
[2023-02-10] MEDS: OMEGA 3 (FISH OIL) 1000 MG CAP PO SCH (20:33)
[2023-02-10] MEDS ORDERED: CALCIUM CARBONATE 600 MG (CALCARB) TAB PO SCH (21:00)
[2023-02-10] MEDS ORDERED: DOCUSATE SODIUM 100 MG (COLACE) CAP PO SCH (21:00)
[2023-02-10] MEDS ORDERED: NON-FORMULARY MEDICATION 1 EA EA (Ubidecarenone/Vit E Acetate (Co Q-10 100 mg Softgel) 1 E PO SCH (21:00)
[2023-02-11] MEDS: oxyCODONE/APAP 5/325MG (PERCOCET 5) TABLET PO PRN ×4 (01:34→21:08)
--- NOTE | 2023-02-11 05:11 | PM&R Progress Note ---
Subjective HPI/CC On Admission Date Seen by Provider: Feb 11, 2023 Time Seen by Provider: 11:00 Subjective/Events-last exam 02/11/2023: Much improved status BM+ after laxatives Pain improved Participation is good No falls Review of Systems General: Fatigue, Malaise Gastrointestinal: Constipation Musculoskeletal: back pain Objective Exam Vital Signs Vital Signs Date Time Temp Pulse Resp B/P (MAP) Pulse Ox O2 Delivery O2 Flow Rate FiO2 02/12/23 01:00 70 02/11/23 20:30 94 Room Air 02/11/23 20:27 36.3 16 126/59 (81) Capillary Refill : General Appearance: No Apparent Distress, WD/WN, Anxious, Chronically ill HEENT: PERRL/EOMI, Normal ENT Inspection, Pharynx Normal Neck: Full Range of Motion, Normal Inspection, Non Tender, Supple, Carotid Bruit Respiratory: Chest Non Tender, Lungs Clear, Normal Breath Sounds, No Accessory Muscle Use, No Respiratory Distress Cardiovascular: Regular Rate, Rhythm, No Edema, No Gallop, No JVD, No Murmur, Normal Peripheral Pulses Gastrointestinal: Normal Bowel Sounds, No Organomegaly, No Pulsatile Mass, Non Tender, Soft Back: Normal Inspection, No Vertebral Tenderness, Decreased Range of Motion, Muscle Spasm, Vertebral Tenderness Extremity: Normal Capillary Refill, Normal Inspection, Normal Range of Motion, Non Tender, No Calf Tenderness, No Pedal Edema Neurologic/Psychiatric: Alert, Oriented x3, No Motor/Sensory Deficits, restaurant line cook II- XII Norm as Tested, Depressed Affect Skin: Normal Color, Warm/Dry Lymphatic: No Adenopathy Results/Procedures Lab Laboratory Tests 02/11/23 05:53 Patient resulted labs reviewed. FIM Transfers Therapy Code Descriptions/Definitions Functional [place] Measure: 0=Not Assessed/NA 4=Minimal Assistance 1=Total Assistance 5=Supervision or Setup 2=Maximal Assistance 6=Modified [place] 3=Moderate Assistance 7=Complete IndependenceSCALE: Activities may be completed with or without assistive devices. 5-Jfgdwupkib-rolwpyz completes the activity by him/herself with no assistance from a helper. 5-Set-up or Clean-up Assistance-helper sets up or cleans up; patient completes activity. [place] assists only prior to or following the activity. 4-Supervision or Touching Assistance-helper provides verbal cues and/or touching/steadying and/or contact guard assistance as patient completes activity. Assistance may be provided throughout the activity or intermittently. 3-Partial/Moderate Assistance-helper does LESS THAN HALF the effort. [place] lifts, holds or supports trunk or limbs, but provides less than half the effort. 2-Substantial/Maximal Assistance-helper does MORE THAN HALF the effort. [place] lifts or holds trunk or limbs and provides more than half the effort. 1-Riepcsvyc-vylswl does ALL the effort. Patient does none of the effort to com plete the activity. Or, the assistance of 2 or more helpers is required for the patient to complete the activity. If activity was not attempted, code reason: 7-Patient Refused. 9-Not Applicable-not attempted and the patient did not perform the activity before the current illness, exacerbation or injury. 10-Not Attempted due to Environmental Limitations-(lack of equipment, weather restraints, etc.). 88-Not Attempted due to Medical Conditions or Safety Concerns. Roll Left to Right (QC): 4 (cues for bending opposite leg to push and using opposite arm to pull to maintain log rolling to (R) and (L) x 2. Able to perform 2nd set without cues with use of bed rail and maintain spinal precautions. ) Sit to Lying (QC): 3 (Min (A) for LE's to prevent twisting.) Sit to Stand (QC): 4 (Steadying assist x 4 - once from EOB, x 3 from arm chair. Pushes up with 1 arm with opposite arm on walker.) Chair/Tai-uo-Ikkis Xfer(QC): 4 (Steadying assist with FWW) Car Transfer (QC): 3 (Min (A) ) Gait Training Does the Patient Walk?: Yes Distance: Patient ambulate 200' with FWW CGA-SBA with slow carlos. Walk 10 feet (QC): 4 (performed TUG x 2 with FWW. Time decreased to 32.7 seconds compared to eval time of 34.9 sec with FWW) Walk 50 ft with 2 Turns(QC): 4 (CGA) Walk 150 ft (QC): 4 (CGA with FWW) Walking 10ft/uneven surface-QC: 3 (min (A) with FWW) Gait Assistive Device: FWW Wheelchair Training Does the Pt Use a Wheelchair?: No Wheel 50 ft with 2 turns (QC): 9 Wheel 150 ft (QC): 9 Stair Training #of Steps: 6 1 Step (curb) (QC): 3 (Min (A) with cues for walker placement) 4 Steps (QC): 3 (Min (A) with cues for stepping strategy, (B) handrails.) 12 Steps (QC): 88 (NT due to pain /p transfer and not yet getting pain meds.) Balance Picking up an Object (QC): 5 (with FWW and merchandise worker) ADL-Treatment Eating (QC): 6 Oral Hygiene (QC): 4 (CGA) Shower/Bathe Self (QC): 4 (CGA) Upper Body Dressing (QC): 3 (Min A with back brace) Lower Body Dressing (QC): 3 (min A with pant hike.) On/Off Footwear (QC): 4 (SBA) Toileting Hygiene (QC): 3 (Min A with pant hike.) Assessment/Plan Assessment and Plan Assess & Plan/Chief Complaint Assessment: S/P L2-L5 lumbar laminectomy and L4-L5 fusion 02/02/2023 Anemia Paroxysmal Afib w/ RVR new onset post op Transaminitis HLD OA Depression Anxiety P PT/OT for rehabilitation Continue home medications NSR at this time. Continue Cardizem 120mg PO QD and Eliquis 5mg PO BID Monitor LFT's 02/11/2023: Monitor pain Maintain BM regimen (1) Lumbar stenosis without neurogenic claudication PATRICIA RUBI DO Feb 11, 2023 05:11
--- NOTE | 2023-02-11 05:12 | Individualized Plan of Care ---
Individualized Plan of Care Rehab Nursing IPOC Order Admission Date Feb 10, 2023 at 09:45 Current Orders Orders Admission Order(Inpt,Obs,Sdc) (02/10/23 06:12) Vital Signs: Per Unit Policy ( 08,16,00 (02/10/23 06:12) Lauro Pacheco (02/10/23 06:12) Sequential Compression Device (02/10/23 06:12) Cap Sizer-Inpt Rehab Con (02/10/23 06:12) Rehab Nursing Orders-Ipoc (02/10/23 06:12) Physical Therapy Rehab Orders (02/10/23 06:12) Occupational Therapy Rehab Ord (02/10/23 06:12) Speech Therapy Rehab Orders (02/10/23 06:12) Cbc With Automated Diff (02/11/23 06:00) Comprehensive Metabolic Panel (02/11/23 06:00) Precautions (Aru) (02/10/23 06:12) Weekly Weight WEEK (02/10/23 06:12) Rehab-Intensity Of Therapy (02/10/23 06:12) Initiate Admission Nursing Pro .admission (02/10/23 06:12) Alprazolam Tablet (Xanax Tablet) (02/10/23 06:15) Calcium Carbonate Chew Tablet (Antacid C (02/10/23 06:15) Diphenhydramine Tablet (Benadryl Tablet) (02/10/23 06:15) Docusate Sodium Capsule (Colace Capsule) (02/10/23 09:00) Docusate Sodium Capsule (Colace Capsule) (02/10/23 06:15) Bisacodyl Suppository (Dulcolax Supposit (02/10/23 06:15) Lactulose Oral Solution (Enulose Oral So (02/10/23 06:15) Na Phos/Na Biphos Enema (Fleet Enema Lonny (02/10/23 06:15) Guaifenesin/Codeine Syrup (Robitussin Ac (02/10/23 06:15) Loperamide Tablet (Imodium Tablet) (02/10/23 06:15) Melatonin Tablet (Melatonin Tablet) (02/10/23 06:15) Polyethylene Glycol Powder Pkt (Miralax (02/10/23 09:00) Ondansetron Oral Dissolve Tab (Zofran (02/10/23 06:15) Senna S Tablet (Senokot S Tablet) (02/10/23 09:00) Acetaminophen Tablet/Caplet (Tylenol T (02/10/23 06:15) Code/Resuscitation (02/10/23 06:12) Initiate Admission Nursing Pro .admission (02/10/23 06:12) Admission Arrival Bed Request (02/10/23 09:50) Apixaban Tablet (Eliquis Tablet) (02/10/23 21:00) Aspirin Enteric Coated Tablet (Ecotrin T (02/11/23 09:00) Calcium Carbonate Tablet (Calcarb 600 Ta (02/10/23 21:00) Cholecalciferol Capsule/Tablet (Vitamin (02/11/23 09:00) Docusate Sodium Capsule (Colace Capsule) (02/10/23 21:00) [place] 3 Capsule (Fish Oil Capsule) (02/10/23 21:00) Oxycodone/Apap 5/325mg Tablet (Percocet (02/10/23 11:45) (Nf) Diltiazem Hcl (Tiazac) (02/11/23 09:00) (Nf) Fluoxetine Hcl (Prozac) (02/11/23 09:00) (Nf) Glucosamine/D3/Boswellia Maribel (Ost (02/10/23 21:00) (Nf) Multivitamin (02/11/23 09:00) (Nf) Ubidecarenone/Vit E Acetate (Co Q-1 (02/10/23 21:00) Hypochlorous Acid/Sod Chloride (Vashe Wo (02/10/23 11:45) Dressing Order (Intervention) DAILY PRN (02/10/23 11:38) Fluoxetine Capsule (Prozac Capsule) (02/11/23 09:00) Therapeutic Multivitamin Tab (Vitamins, (02/11/23 07:00) Calcium Carbonate Tablet (Calcarb 600 Ta (02/10/23 18:00) Diltiazem Cd 24 Hr Capsule (Cardizem Cd (02/11/23 09:00) General/Regular (02/10/23 Breakfast) Follow-Up Appointment (02/10/23 11:53) Lifting Restrictions (02/10/23 11:53) Nursing Communication (Order) (02/10/23 11:53) Patient Visit (02/10/23 ) Pt Eval Moderate Complexity (02/10/23 ) Gait Training, Ea 15 Min (02/10/23 ) Functional Activities, Ea 15 (02/10/23 ) Patient Visit (02/10/23 ) Functional Activities, Ea 15 (02/10/23 ) Consult Cardiology (02/11/23 05:11) Ekg Tracing (02/11/23 08:36) Telemetry (02/11/23 08:36) Telemetry Nursing Assessment ( (02/11/23 08:36) Gamma Glutamyl Transferase Ggt (02/11/23 11:39) Patient Visit (02/11/23 ) Gait Training, Ea 15 Min (02/11/23 ) Exercise Therap, Ea 15 Min (02/11/23 ) Patient Visit (02/11/23 ) Exercise Therap, Ea 15 Min (02/11/23 ) Functional Activities, Ea 15 (02/11/23 ) Rehab Nursing Orders: Ongoing Assess. of Cognitive Status, Ongoing Assess. of Function Status, Bladder Management, Bladder Scan, Bladder Training, Bowel Management, Bowel Training, Disease Management & Educaiton, DVT Prophylaxis, Fall Prevention, Fluid/Electrolyte/Nutrition Mgmt, Infection Prevention, Medication Management & Education, Management of Risks & Complications, Management of Skin Intergrity, Nutrition Management, Pain Management, Patient/Family Support, Safety Management Intensity of Therapy to be met Patient to be seen: Min.3h per day/5 of 7d PT IPOC Problem List: Activity Tolerance, Functional Strength, Safety, Balance, Gait, Transfer, Bed Mobility, ROM, Other (stair/curb mobility) Treatment Plan: Continue Plan of Care Bed Mobility, Education, Functional Activity Nicky, Functional Strength, Group Therapy, Gait, Safety, Therapeutic Exercise, Transfers, Other (stair/curb training) Treatment Duration: Feb 27, 2023 Frequency: At least 5 of 7 days/Wk (IRF) Estimated Hrs Per Day: 1.5 hours per day OT IPOC Problems: Decreased Activ Tolerance, Decreased UE Strength, Impaired Funct Balance, Impaired I ADL's, Impaired Self-Care Skills OT Treatment, Training and Edu: Yes Plan of Care: ADL Retraining, Functional Mobility, Group Exercise/Act as Ind, UE Funct Exercise/Act Treatment Duration: Feb 27, 2023 Frequency: At least 5 of 7 days/Wk (IRF) Estimated Hrs Per Day: 1.[address] IPOC Speech Therapy Treatment Plan: Discontinue ST Treatment Duration: Feb 11, 2023 Frequency: Modified Program (IRF) Estimated Hrs Per Day: Other Cap Sizer/Case Mgmt Cap Sizer/Case Managemen: Discharge Planning Dietitian/Taper/Finisher Dietitian/Taper/Finisher to monitor nutritional status and make changes and/or recommendations as needed and work with speech pathology on dietary upgrades as the occur. Physician IPOC Medical Issues being managed closely and that require the 24 hour availability of a physician: Recent lumbar spine surgery with complications requiring wound vac and slow recovery will require close monitoring in order to prevent decompensation Medical Issues: Bowel/Bladder Function, DVT Prophylaxis, Falls Precautions, Fluid/Electrolyte/Nutrition Balance, Infection Protection, Pain Management, Wou nd Care Brief Synthesis of Preadmission Screen, Post-Admission Evaluation, and Therapy Evaluations: PT OT will focus on regaining function in order to ambulate and increase ADL's at home in order to return home to live independently Medical Prognosis: Good Anticipated Length of Stay: 10 days PATRICIA RUBI DO Feb 11, 2023 05:12
[2023-02-11] MEDS: MULTIVIT W/MINERALS TAB (THERAGRAN M) PO SCH (06:03)
[2023-02-11 06:10] LABS: BASOPHILS # (AUTO) 0.1 10^3/uL (0.0-0.1); BASOPHILS % (AUTO) 1 % (0-10); EOSINOPHILS # (AUTO) 0.3 10^3/uL (0.0-0.3); EOSINOPHILS % (AUTO) 5 % (0-10); HEMATOCRIT 31 % (35-52); HEMOGLOBIN 10.2 g/dL (11.5-16.0); LYMPHOCYTES # (AUTO) 1.5 10^3/uL (1.0-4.0); LYMPHOCYTES % (AUTO) 29 % (12-44); MEAN CORPUSCULAR HEMOGLOBIN 30 pg (25-34); MEAN CORPUSCULAR HGB CONC 33 g/dL (32-36); MEAN CORPUSCULAR VOLUME 92 fL (80-99); MONOCYTES # (AUTO) 0.6 10^3/uL (0.0-1.0); MONOCYTES % (AUTO) 12 % (0-12); NEUTROPHILS # (AUTO) 2.7 10^3/uL (1.8-7.8); NEUTROPHILS % (AUTO) 51 % (42-75); PLATELET COUNT 208 10^3/uL (130-400); WHITE BLOOD COUNT 5.2 10^3/uL (4.3-11.0)
[2023-02-11 06:24] LABS: ALBUMIN 3.3 GM/DL (3.2-4.5); POTASSIUM 4.1 MMOL/L (3.6-5.0)
[2023-02-11 06:25] LABS: CALCIUM 8.7 MG/DL (8.5-10.1)
[2023-02-11 06:26] LABS: TOTAL PROTEIN 5.7 GM/DL (6.4-8.2)
[2023-02-11 06:28] LABS: BILIRUBIN,TOTAL 0.7 MG/DL (0.1-1.0)
[2023-02-11 06:30] LABS: CREATININE SERUM 0.69 MG/DL (0.60-1.30)
[2023-02-11] MEDS: ASPIRIN E.C. 81 MG (ECOTRIN) TAB PO SCH (07:50)
[2023-02-11] MEDS: dilTIAZem120 MG (CARDIZEM CD) CAP PO SCH (07:50)
[2023-02-11] MEDS: APIXABAN 5 MG (ELIQUIS) TABLET PO SCH ×2 (07:51→21:08)
[2023-02-11] MEDS: FLUoxetine HCL 20 MG (PROzac) CAP PO SCH (07:51)
[2023-02-11] MEDS: SENNA W/DOCUSATE (SENOKOT S) TABLET PO SCH ×2 (07:51→20:55)
[2023-02-11] MEDS: OMEGA 3 (FISH OIL) 1000 MG CAP PO SCH ×2 (07:51→20:55)
[2023-02-11] MEDS: DOCUSATE SODIUM 100 MG (COLACE) CAP PO SCH ×2 (07:52→20:55)
[2023-02-11] MEDS: polyethylene glycoL POWDER 17 GM (MIRALAX) PACK PO SCH ×2 (07:52→20:55)
[2023-02-11] MEDS: VITAMIN D3 25 MCG (1,000 UNITS) TABLET PO SCH (07:53)
[2023-02-11 07:55] VITALS: BP 130/60
--- NOTE | 2023-02-11 08:22 | Speech Therapy Progress Note ---
Therapy Progress Note ST received consultation for cognitive services. At this time, speech pathology has not been contacted with specific cognitive concerns which would warrant skilled speech pathology evaluation and treatment. Please re-consult speech pathology as needed and appropriate. Thank you. EDYTA MENA Feb 11, 2023 08:22
[2023-02-11] MEDS ORDERED: NON-FORMULARY MEDICATION 1 EA EA (Fluoxetine HCl (Prozac) 40 MG) PO SCH (09:00)
[2023-02-11] MEDS ORDERED: NON-FORMULARY MEDICATION 1 EA EA (Multivitamin 1 EACH) PO SCH (09:00)
[2023-02-11] MEDS ORDERED: DILTIAZEM HCL 120 MG PO SCH (09:00)
--- NOTE | 2023-02-11 09:41 | Occupational Ther Daily Note ---
OT Current Status-Daily Note Subjective Pt in recliner, agreeable to OT tx with focus on showering. Per chart review from OSH, pt has 5lb lifting restriction. Mental Status/Objective Attachments: Telemetry ADL-Treatment Therapy Code Descriptions/Definitions Functional [place] Measure: 0=Not Assessed/NA 4=Minimal Assistance 1=Total Assistance 5=Supervision or Setup 2=Maximal Assistance 6=Modified [place] 3=Moderate Assistance 7=Complete IndependenceSCALE: Activities may be completed with or without assistive devices. 3-Ihtlskwqog-nfmwmvd completes the activity by him/herself with no assistance from a helper. 5-Set-up or Clean-up Assistance-helper sets up or cleans up; patient completes activity. [place] assists only prior to or following the activity. 4-Supervision or Touching Assistance-helper provides verbal cues and/or touching/steadying and/or contact guard assistance as patient completes activity. Assistance may be provided throughout the activity or intermittently. 3-Partial/Moderate Assistance-helper does LESS THAN HALF the effort. [place] lifts, holds or supports trunk or limbs, but provides less than half the effort. 2-Substantial/Maximal Assistance-helper does MORE THAN HALF the effort. [place] lifts or holds trunk or limbs and provides more than half the effort. 0-Feurljptf-lubupf does ALL the effort. Patient does none of the effort to complete the activity. Or, the assistance of 2 or more helpers is required for the patient to complete the activity. If activity was not attempted, code reason: 7-Patient Refused. 9-Not Applicable-not attempted and the patient did not perform the activity before the current illness, exacerbation or injury. 10-Not Attempted due to Environmental Limitations-(lack of equipment, weather restraints, etc.). 88-Not Attempted due to Medical Conditions or Safety Concerns. Eating (QC): 6 Oral Hygiene (QC): 4 (SBA standing at sink.) Shower/Bathe Self (QC): 4 (SBA) Upper Body Dressing (QC): 4 (Supervision) Lower Body Dressing (QC): 4 (SBA) On/Off Footwear: 5 Other Treatment Pt in recliner, used FWW to transfer into bathroom and onto SC. Pt doffed clothes, completed showering, then donned clothes. Pt educated doffing back brace immediately prior to shower, and donning before getting off of SC in order to maintain precautions, she verbalized understanding. Pt stood at sink to complete grooming tasks, then returned to recliner. Post tx, pt in recliner, call light in reach and all needs met. CGA-SBA with transfers and mobility using FWW Education OT Patient Education: Correct positioning, Energy conservation, Modified ADL techniques, Progress toward Goal/Update tx plan, Purpose of tx/functional activities, Rehab process Teaching Recipient: Patient Teaching Methods: Discussion Response to Teaching: Verbalize Understanding OT Short Term Goals Short Term Goals Time Frame: Feb 18, 2023 Toileting hygiene: 5 Shower/bathe self: 5 Upper body dressin Lower body dressin Putting on/taking off footwear: 5 OT Physiotherapy Practice Manager Goals [facility] Goals Time Frame: Feb 27, 2023 Acute change in mental status: 0 Inattention: 0 Disorganized thinkin Altered level of consciousness: 0 Eating (QC): 6 Oral Hygiene (QC): 6 Toileting Hygiene (QC): 6 Shower/Bathe Self (QC): 5 Upper Body Dressing (QC): 6 Lower Body Dressing (QC): 6 On/Off Footwear (QC): 6 Additional Goals: 1-Demonstrate ADL Tasks, 2-Verbalize Understanding, 3- ImproveStrength/Nicky 1=Demonstrate adherence to instructed precautions during ADL tasks. 2=Patient will verbalize/demonstrate understanding of assistive devices/mod ifications for ADL. 3=Patient will improve strength/tolerance for activity to enable patient to perform ADL's. OT Education/Plan Problem List/Assessment Assessment: Decreased Activ Tolerance, Decreased UE Strength, Impaired Funct Balance, Impaired I ADL's, Impaired Self-Care Skills Discharge Recommendations Plan/Recommendations: Continue POC Treatment Plan/Plan of Care Patient would benefit from OT for education, treatment and training to promote independence in ADL's, mobility, safety and/or upper extremity function for ADL's. Plan of Care: ADL Retraining, Functional Mobility, Group Exercise/Act as Ind, UE Funct Exercise/Act Treatment Duration: Feb 27, 2023 Frequency: At least 5 of 7 days/Wk (IRF) Estimated Hrs Per Day: 1.5 hours per day Agreement: Yes Rehab Potential: Good Time Start Time: 08:45 Stop Time: 09:45 DATE: Feb 11, 2023 Total Time Billed (hr/min): 60 Billed Treatment Time 1, ADL 4 ADRYAN QUICK OT Feb 11, 2023 09:41
[2023-02-11] MEDS: ONDANSETRON 4 MG (ZOFRAN) ORAL DISSOLVE TAB PO PRN ×2 (10:15→20:24)
--- NOTE | 2023-02-11 10:34 | Physical Therapy Daily Note ---
PT Daily Note-Current Subjective pt in recliner upon arrival. pt willing for therapy. pt was able to preform half treatment then stated she was sick to her stomach. precinct captain spoke with nursing and nursing gave her anti-nausea med. pt was left in room on bed with nursing who was then preforming her EKG this day. Pain Section J - Health Conditions 1. Rarely or not at all 2. Occasionally 3. Frequently 4. Almost constantly 8. Unable to answer Pain Effect on Sleep: 2 Pain Interference with Therapy: 2 Pain Interference w/Day-to-Day: 3 Mental Status Patient Orientation: Person, Place, Time, Situation Transfers SCALE: Activities may be completed with or without assistive devices. 2-Ediplqzisn-yqbtwoc completes the activity by him/herself with no assistance from a helper. 5-Set-up or Clean-up Assistance-helper sets up or cleans up; patient completes activity. [place] assists only prior to or following the activity. 4-Supervision or Touching Assistance-helper provides verbal cues and/or touching/steadying and/or contact guard assistance as patient completes activity. Assistance may be provided throughout the activity or intermittently. 3-Partial/Moderate Assistance-helper does LESS THAN HALF the effort. [place] lifts, holds or supports trunk or limbs, but provides less than half the effort. 2-Substantial/Maximal Assistance-helper does MORE THAN HALF the effort. [place] lifts or holds trunk or limbs and provides more than half the effort. 4-Hxzaxfsmz-ypsviz does ALL the effort. Patient does none of the effort to complete the activity. Or, the assistance of 2 or more helpers is required for the patient to complete the activity. If activity was not attempted, code reason: 7-Patient Refused. 9-Not Applicable-not attempted and the patient did not perform the activity before the current illness, exacerbation or injury. 10-Not Attempted due to Environmental Limitations-(lack of equipment, weather restraints, etc.). 88-Not Attempted due to Medical Conditions or Safety Concerns. Weight Bearing Weight Bearing/Tolerated Weight Bearing/Tolerated Gait Training Gait Assistive Device: FWW Exercises Seated Therapy Exercises: LE Protocol, Ankle pumps, Sit to stand, Long arc quads, Kicking activity, Hamstring Curls, Hip abd/add, Glut set Treatments pt was able to ambulate aprox 250ft with 4ww and SBA with vc for correct pivoting sequence of aprox 20% to prevent falls in the facility. pt was able to preform seated ther-ex in all planes of motion with BLE for 2 sets x 20. pt facilitated balance activity when standing in // bars while adhering to lumbar back precautions. Assessment Current Status: Fair Progress PT Skilled Nursing Goals Production Inspector Goals PT Production Inspector Goals Time Frame: Feb 27, 2023 Roll Left & Right (QC): 6 (with use of bed rail/walker for rail) Sit to Lying (QC): 6 (with use of bed rail/walker for rail) Lying-Sitting on Side/Bed(QC): 6 (with use of bed rail/walker for rail) Sit to Stand (QC): 6 Chair/Vaj-fc-Jneih Xfer(QC): 6 (with FWW) Toilet Transfer (QC): 6 (with FWW ) Car Transfer (QC): 5 (with FWW) Does the Patient Walk: Yes Walk 10 feet (QC): 6 (with FWW and TLSO) Walk 50ft with 2 Turns (QC): 6 (with FWW and TLSO) Walk 150 ft (QC): 6 (500' with FWW and TLSO) Walking 10ft on Uneven Surface: 6 (with FWW and TLSO) 1 Step (curb) (QC): 6 4 Steps (QC): 6 (with railings) 12 Steps (QC): 5 (with railings) Picking up an Object (QC): 6 (with manager of global due to spine precautions) Does the Pt use WC or Scooter?: No Wheel 50 feet with 2 turns (QC: 9 Wheel 150 feet: 9 PT Plan Treatment/Plan Treatment Plan: Continue Plan of Care Treatment Plan: Bed Mobility, Education, Functional Activity Nicky, Functional Strength, Group Therapy, Gait, Safety, Therapeutic Exercise, Transfers, Other (stair/curb training) Treatment Duration: Feb 27, 2023 Frequency: At least 5 of 7 days/Wk (IRF) Estimated Hrs Per Day: 1.5 hours per day Patient and/or Family Agrees t: Yes Time Time In: 1000 Time Out: 1045 DATE: Feb 11, 2023 Total Billed Treatment Time: 45 Total Billed Treatment 1, GTx 2, EX Prema Christinason EMISSION SPECIALIST Feb 11, 2023 10:34
--- NOTE | 2023-02-11 11:03 | Consultation-Cardiology ---
HPI-Cardiology Cardiology Consultation Date of Consultation 02/11/23 Date of Admission Time Seen by Provider: 11:00 HPI Patient is a 77 y/o female with history of Degenerative disc disease, s/p laminectomy, HLP, anxiety/depression. Underwent recent lumbar laminectomy at [facility]. Per records reviewed, noted to have brief episode of atrial fibrillation on post op day 3. Converted on Cardizem gtt and currently maintained on oral cardizem and Eliquis. Denies any chest pain, dyspnea, dizziness or lightheadedness. Denies any previous cardiac history. Home Medications & Allergies Allergies: Coded Allergies: promethazine (Verified Allergy, Mild, ANXIETY/JITTERS, 10/20/18) Home Medication List Reviewed: Yes RRQ-Ijlher-Gmqhvc Hx Patient Social History Marital Status: Employed/Student: retired Smoking Status: Never a Smoker Recent Hopitalizations: No Have you traveled recently?: No Alcohol Use?: No Immunizations Up To Date Date of Pneumonia Vaccine: Aug 09, 2018 Date of Influenza Vaccine: Aug 09, 2018 Past Medical History HLP, DDD, anxiety/depression Review of Systems-General Review of Systems Constitutional: see HPI, malaise, weakness EENTM: no symptoms reported Respiratory: no symptoms reported Cardiovascular: no symptoms reported Gastrointestinal: constipation Genitourinary: no symptoms reported Musculoskeletal: back pain Skin: no symptoms reported Psychiatric/Neurological: Anxiety, Depressed All Other Systems Reviewed Negative Unless Noted: Yes Reviewed Test Results Reviewed Test Results Lab Laboratory Tests 02/11/23 05:53: White Blood Count 5.2, Red Blood Count 3.41L, Hemoglobin 10.2L, Hematocrit 31L, Mean Corpuscular Volume 92, Mean Corpuscular Hemoglobin 30, Mean Corpuscular Hemoglobin Concent 33, Red Cell Distribution Width 13.7, Platelet Count 208, Mean Platelet Volume 10.0, Immature Granulocyte % (Auto) 1, Neutrophils (%) (Auto) 51, Lymphocytes (%) (Auto) 29, Monocytes (%) (Auto) 12, Eosinophils (%) (Auto) 5, Basophils (%) (Auto) 1, Neutrophils # (Auto) 2.7, Lymphocytes # (Auto) 1.5, Monocytes # (Auto) 0.6, Eosinophils # (Auto) 0.3, Basophils # (Auto) 0.1, Immature Granulocyte # (Auto) 0.1, Sodium Level 136, Potassium Level 4.1, Chloride Level 101, Carbon Dioxide Level 26, Anion Gap 9, Blood Urea Nitrogen 11, Creatinine 0.69, Estimat Glomerular Filtration Rate 89, BUN/Creatinine Ratio 16, Glucose Level 104, Calcium Level 8.7, Corrected Calcium 9.3, Total Bilirubin 0.7, Aspartate Amino Transf (AST/SGOT) 829H, Alanine Aminotransferase (ALT/SGPT) 767H, Alkaline Phosphatase 421H, Total Protein 5.7L, Albumin 3.3 Physical Exam Physical Exam Vital Signs Vital Signs - First Documented 02/10/23 09:45 Temp 36.5 Pulse 72 Resp 20 B/P (MAP) 118/59 (78) Pulse Ox 95 O2 Delivery Room Air Capillary Refill : Height, Weight, BMI Height: 5'2.00" Weight: 180lbs. 0.0oz. 81.957144vc; 30.23 BMI Method:Stated General Appearance: No Apparent Distress, WD/WN, Anxious, Chronically ill Eyes: Bilateral Eye Normal Inspection, Bilateral Eye PERRL HEENT: PERRL/EOMI, Normal ENT Inspection, Pharynx Normal Neck: Full Range of Motion, Normal Inspection, Non Tender, Supple, Carotid Bruit Respiratory: Chest Non Tender, Lungs Clear, Normal Breath Sounds, No Accessory Muscle Use, No Respiratory Distress Cardiovascular: Regular Rate, Rhythm, No Edema, No Gallop, No JVD, No Murmur, Normal Peripheral Pulses Gastrointestinal: Normal Bowel Sounds, No Organomegaly, No Pulsatile Mass, Non Tender, Soft Back: Normal Inspection, No Vertebral Tenderness, Decreased Range of Motion, Muscle Spasm, Vertebral Tenderness Extremity: Normal Capillary Refill, Normal Inspection, Normal Range of Motion, Non Tender, No Calf Tenderness, No Pedal Edema Neurologic/Psychiatric: Alert, Oriented x3, No Motor/Sensory Deficits, billet recorder II- XII Norm as Tested, Depressed Affect Skin: Normal Color, Warm/Dry Lymphatic: No Adenopathy A/P-Cardiology Admission Diagnosis PAF Elevated LFTs HLP DDD Assessment/Plan Paroxysmal atrial fibrillation, per records received from [facility], patient had brief episode AFib with RVR post op day 3 with HR in the 130s. Converted on Cardizem gtt and currently on PO Cardizem and Eliquis. I will evaluate EKG, place on telemetry. Pateint reports 2D Echo done at [facility], I will try to obtain copy of records for further review. Degenerative disc disease, s/p lumbar laminectomy and L4-L5 fusion. Continue PT/ OT Elevaetd LFTs, Transaminitis, unknown etiology, per records reviewed, thought to be secondary to use of statins. Will continue to monitor LFTs HLP, was maintained on statin as outpatient, recently discontinued. Anemia, continue to monitor H/H Anxiety/Depression, managment per medical services. Thank you for allowing us to participate in the management of Ms. Aquino. This i s Bria Herbert PA-C, as a scribe for Dr. Peterson. Patient was seen and evaluated on February 12, 2023. I discussed the management plan and examined the patient Patient has paroxysmal atrial fibrillation, had 1 episode converted to sinus rhythm on Cardizem drip at [facility] Currently on telemetry which is monitored Started on Eliquis Continue on fighting vehicle systems maintainer liver enzymes, Continue with physical therapy. Clinical Quality Measures DVT/VTE Risk/Contraindication: Contraindications-Pharm: Other *list below* Other: spinal surgery BRIA LOZANO Feb 11, 2023 11:03 TOMMIE PETERSON MD Feb 12, 2023 08:47
--- NOTE | 2023-02-11 11:55 | Physical Therapy Daily Note ---
PT Daily Note-Current Subjective pt in bed upon arrival. willing for therapy. pt stated no pain currently. Pain Section J - Health Conditions 1. Rarely or not at all 2. Occasionally 3. Frequently 4. Almost constantly 8. Unable to answer Pain Effect on Sleep: 2 Pain Interference with Therapy: 2 Pain Interference w/Day-to-Day: 3 Transfers SCALE: Activities may be completed with or without assistive devices. 4-Jayagmkljs-hksjphz completes the activity by him/herself with no assistance from a helper. 5-Set-up or Clean-up Assistance-helper sets up or cleans up; patient completes activity. [place] assists only prior to or following the activity. 4-Supervision or Touching Assistance-helper provides verbal cues and/or touching/steadying and/or contact guard assistance as patient completes activity. Assistance may be provided throughout the activity or intermittently. 3-Partial/Moderate Assistance-helper does LESS THAN HALF the effort. [place] lifts, holds or supports trunk or limbs, but provides less than half the effort. 2-Substantial/Maximal Assistance-helper does MORE THAN HALF the effort. [place] lifts or holds trunk or limbs and provides more than half the effort. 2-Nxphztlkc-fqtgbj does ALL the effort. Patient does none of the effort to complete the activity. Or, the assistance of 2 or more helpers is required for the patient to complete the activity. If activity was not attempted, code reason: 7-Patient Refused. 9-Not Applicable-not attempted and the patient did not perform the activity before the current illness, exacerbation or injury. 10-Not Attempted due to Environmental Limitations-(lack of equipment, weather restraints, etc.). 88-Not Attempted due to Medical Conditions or Safety Concerns. Weight Bearing Weight Bearing/Tolerated Weight Bearing/Tolerated Exercises Supine Ex: LE Protocol, Ankle pumps, Quad Set, Glut sets, Short Arc Quads, Straight leg raise Treatments pt preformed supine and seated ther-ex with 50% VC for correct mm movement this day. Assessment pt still slightly nauseous from previous mid-morning ther-ex. pt did require a few more rest breaks than normal secondary to nauseous. PT Half-Way Goals Irrigation Engineer Goals PT Irrigation Engineer Goals Time Frame: Feb 27, 2023 Roll Left & Right (QC): 6 (with use of bed rail/walker for rail) Sit to Lying (QC): 6 (with use of bed rail/walker for rail) Lying-Sitting on Side/Bed(QC): 6 (with use of bed rail/walker for rail) Sit to Stand (QC): 6 Chair/Gok-tl-Rcmcj Xfer(QC): 6 (with FWW) Toilet Transfer (QC): 6 (with FWW ) Car Transfer (QC): 5 (with FWW) Does the Patient Walk: Yes Walk 10 feet (QC): 6 (with FWW and TLSO) Walk 50ft with 2 Turns (QC): 6 (with FWW and TLSO) Walk 150 ft (QC): 6 (500' with FWW and TLSO) Walking 10ft on Uneven Surface: 6 (with FWW and TLSO) 1 Step (curb) (QC): 6 4 Steps (QC): 6 (with railings) 12 Steps (QC): 5 (with railings) Picking up an Object (QC): 6 (with manager print due to spine precautions) Does the Pt use WC or Scooter?: No Wheel 50 feet with 2 turns (QC: 9 Wheel 150 feet: 9 PT Plan Treatment/Plan Treatment Plan: Continue Plan of Care Treatment Plan: Bed Mobility, Education, Functional Activity Nicky, Functional Strength, Group Therapy, Gait, Safety, Therapeutic Exercise, Transfers, Other (stair/curb training) Treatment Duration: Feb 27, 2023 Frequency: At least 5 of 7 days/Wk (IRF) Estimated Hrs Per Day: 1.5 hours per day Patient and/or Family Agrees t: Yes Time Time In: 1115 Time Out: 1200 DATE: Feb 11, 2023 Total Billed Treatment Time: 45 Total Billed Treatment 1, ex. Prema Beckford RADIATION OFFICER Feb 11, 2023 11:55
--- NOTE | 2023-02-11 13:34 | Occupational Ther Daily Note ---
OT Current Status-Daily Note Subjective Pt in recliner, agreeable to OT tx. Mental Status/Objective Patient Orientation: Normal For Age ADL-Treatment Therapy Code Descriptions/Definitions Functional [place] Measure: 0=Not Assessed/NA 4=Minimal Assistance 1=Total Assistance 5=Supervision or Setup 2=Maximal Assistance 6=Modified [place] 3=Moderate Assistance 7=Complete IndependenceSCALE: Activities may be completed with or without assistive devices. 4-Yghkdtfpzs-xkwofug completes the activity by him/herself with no assistance from a helper. 5-Set-up or Clean-up Assistance-helper sets up or cleans up; patient completes activity. [place] assists only prior to or following the activity. 4-Supervision or Touching Assistance-helper provides verbal cues and/or touching/steadying and/or contact guard assistance as patient completes activity. Assistance may be provided throughout the activity or intermittently. 3-Partial/Moderate Assistance-helper does LESS THAN HALF the effort. [place] lifts, holds or supports trunk or limbs, but provides less than half the effort. 2-Substantial/Maximal Assistance-helper does MORE THAN HALF the effort. [place] lifts or holds trunk or limbs and provides more than half the effort. 4-Txafveock-akzygy does ALL the effort. Patient does none of the effort to complete the activity. Or, the assistance of 2 or more helpers is required for the patient to complete the activity. If activity was not attempted, code reason: 7-Patient Refused. 9-Not Applicable-not attempted and the patient did not perform the activity before the current illness, exacerbation or injury. 10-Not Attempted due to Environmental Limitations-(lack of equipment, weather restraints, etc.). 88-Not Attempted due to Medical Conditions or Safety Concerns. Upper Body Dressing (QC): 4 (SBA, VC to doff back brace.) Toileting Hygiene (QC): 4 (supervision) Toilet Transfer (QC): 4 (Supervision) Other Treatment Pt in recliner, used FWW to transfer into bathroom and onto toilet, SBA. Pt completed toileting with supervision, then used FWW to perform functional mobility around ARU common area/2nd floor, SBA. Pt returned to room, tr ansferring to EOB, SBA. OT Tx focused on increasing BUE Strength and activity tolerance, pt educated on theraband exercises with light resistance (3 lb, yellow) theraband. Pt completed 5/5 exercises, x10 reps each. Pt doffed back brace, SBA with 1 VC. Pt transferred sit to supine, SBA. Post tx, pt in bed, call light in reach and all needs met. Education OT Patient Education: Correct positioning, Energy conservation, Modified ADL techniques, Progress toward Goal/Update tx plan, Purpose of tx/functional activities, Rehab process Teaching Recipient: Patient Teaching Methods: Discussion Response to Teaching: Verbalize Understanding OT Short Term Goals Short Term Goals Time Frame: Feb 18, 2023 Toileting hygiene: 5 Shower/bathe self: 5 Upper body dressin Lower body dressin Putting on/taking off footwear: 5 OT Grinder Gear Goals Retirement Goals Time Frame: Feb 27, 2023 Acute change in mental status: 0 Inattention: 0 Disorganized thinkin Altered level of consciousness: 0 Eating (QC): 6 Oral Hygiene (QC): 6 Toileting Hygiene (QC): 6 Shower/Bathe Self (QC): 5 Upper Body Dressing (QC): 6 Lower Body Dressing (QC): 6 On/Off Footwear (QC): 6 Additional Goals: 1-Demonstrate ADL Tasks, 2-Verbalize Understanding, 3- ImproveStrength/Nicky 1=Demonstrate adherence to instructed precautions during ADL tasks. 2=Patient will verbalize/demonstrate understanding of assistive devices/modifications for ADL. 3=Patient will improve strength/tolerance for activity to enable patient to perform ADL's. OT Education/Plan Problem List/Assessment Assessment: Decreased Activ Tolerance, Decreased UE Strength, Impaired Funct Balance, Impaired I ADL's, Impaired Self-Care Skills Discharge Recommendations Plan/Recommendations: Continue POC Treatment Plan/Plan of Care Patient would benefit from OT for education, treatment and training to promote independence in ADL's, mobility, safety and/or upper extremity function for ADL's. Plan of Care: ADL Retraining, Functional Mobility, Group Exercise/Act as Ind, UE Funct Exercise/Act Treatment Duration: Feb 27, 2023 Frequency: At least 5 of 7 days/Wk (IRF) Estimated Hrs Per Day: 1.5 hours per day Agreement: Yes Rehab Potential: Good Time Start Time: 13:00 Stop Time: 13:30 DATE: Feb 11, 2023 Total Time Billed (hr/min): 30 Billed Treatment Time 1, FA (10'), EX (20') ADRYAN QUICK OT Feb 11, 2023 13:34
[2023-02-11] MEDS: CALCIUM CARBONATE 600 MG (CALCARB) TAB PO SCH (17:23)
[2023-02-11 20:27] VITALS: BP 126/59
[2023-02-12] MEDS: oxyCODONE/APAP 5/325MG (PERCOCET 5) TABLET PO PRN ×4 (03:16→21:39)
--- NOTE | 2023-02-12 05:35 | PM&R Progress Note ---
Subjective HPI/CC On Admission Date Seen by Provider: Feb 12, 2023 Time Seen by Provider: 11:00 Subjective/Events-last exam 02/12/2023: Much improved status No new issues BM regimen maintained No falls 02/11/2023: Much improved status BM+ after laxatives Pain improved Participation is good No falls Review of Systems General: Fatigue, Malaise Musculoskeletal: back pain Objective Exam Vital Signs Vital Signs Date Time Temp Pulse Resp B/P (MAP) Pulse Ox O2 Delivery O2 Flow Rate FiO2 02/13/23 01:00 70 02/12/23 21:00 94 Room Air 02/12/23 20:09 36.6 16 145/71 (95) Capillary Refill : General Appearance: No Apparent Distress, WD/WN, Anxious, Chronically ill HEENT: PERRL/EOMI, Normal ENT Inspection, Pharynx Normal Neck: Full Range of Motion, Normal Inspection, Non Tender, Supple, Carotid Bruit Respiratory: Chest Non Tender, Lungs Clear, Normal Breath Sounds, No Accessory Muscle Use, No Respiratory Distress Cardiovascular: Regular Rate, Rhythm, No Edema, No Gallop, No JVD, No Murmur, Normal Peripheral Pulses Gastrointestinal: Normal Bowel Sounds, No Organomegaly, No Pulsatile Mass, Non Tender, Soft Back: Normal Inspection, No Vertebral Tenderness, Decreased Range of Motion, Muscle Spasm, Vertebral Tenderness Extremity: Normal Capillary Refill, Normal Inspection, Normal Range of Motion, Non Tender, No Calf Tenderness, No Pedal Edema Neurologic/Psychiatric: Alert, Oriented x3, No Motor/Sensory Deficits, cna hospice II- XII Norm as Tested, Depressed Affect Skin: Normal Color, Warm/Dry Lymphatic: No Adenopathy Results/Procedures Lab Patient resulted labs reviewed. FIM Transfers Therapy Code Descriptions/Definitions Functional [place] Measure: 0=Not Assessed/NA 4=Minimal Assistance 1=Total Assistance 5=Supervision or Setup 2=Maximal Assistance 6=Modified [place] 3=Moderate Assistance 7=Complete IndependenceSCALE: Activities may be completed with or without assistive devices. 0-Xffimeodic-kzknwmc completes the activity by him/herself with no assistance from a helper. 5-Set-up or Clean-up Assistance-helper sets up or cleans up; patient completes activity. [place] assists only prior to or following the activity. 4-Supervision or Touching Assistance-helper provides verbal cues and/or touching/steadying and/or contact guard assistance as patient completes activity. Assistance may be provided throughout the activity or intermittently. 3-Partial/Moderate Assistance-helper does LESS THAN HALF the effort. [place] lifts, holds or supports trunk or limbs, but provides less than half the effort. 2-Substantial/Maximal Assistance-helper does MORE THAN HALF the effort. [place] lifts or holds trunk or limbs and provides more than half the effort. 7-Ruxlezudf-fanptv does ALL the effort. Patient does none of the effort to complete the activity. Or, the assistance of 2 or more helpers is required for the patient to complete the activity. If activity was not attempted, code reason: 7-Patient Refused. 9-Not Applicable-not attempted and the patient did not perform the activity before the current illness, exacerbation or injury. 10-Not Attempted due to Environmental Limitations-(lack of equipment, weather restraints, etc.). 88-Not Attempted due to Medical Conditions or Safety Concerns. Roll Left to Right (QC): 4 (cues for bending opposite leg to push and using opposite arm to pull to maintain log rolling to (R) and (L) x 2. Able to perform 2nd set without cues with use of bed rail and maintain spinal precautions. ) Sit to Lying (QC): 3 (Min (A) for LE's to prevent twisting.) Sit to Stand (QC): 4 (Steadying assist x 4 - once from EOB, x 3 from arm chair. Pushes up with 1 arm with opposite arm on walker.) Chair/Vui-iu-Pynuy Xfer(QC): 4 (Steadying assist with FWW) Car Transfer (QC): 3 (Min (A) ) Gait Training Does the Patient Walk?: Yes Distance: Patient ambulate 200' with FWW CGA-SBA with slow carlos. Walk 10 feet (QC): 4 (performed TUG x 2 with FWW. Time decreased to 32.7 seconds compared to eval time of 34.9 sec with FWW) Walk 50 ft with 2 Turns(QC): 4 (CGA) Walk 150 ft (QC): 4 (CGA with FWW) Walking 10ft/uneven surface-QC: 3 (min (A) with FWW) Gait Assistive Device: FWW Wheelchair Training Does the Pt Use a Wheelchair?: No Wheel 50 ft with 2 turns (QC): 9 Wheel 150 ft (QC): 9 Stair Training #of Steps: 6 1 Step (curb) (QC): 3 (Min (A) with cues for walker placement) 4 Steps (QC): 3 (Min (A) with cues for stepping strategy, (B) handrails.) 12 Steps (QC): 88 (NT due to pain /p transfer and not yet getting pain meds.) Balance Picking up an Object (QC): 5 (with FWW and personal injury legal assistant) ADL-Treatment Eating (QC): 6 Oral Hygiene (QC): 4 (SBA standing at sink.) Shower/Bathe Self (QC): 4 (SBA) Upper Body Dressing (QC): 4 (SBA, VC to doff back brace.) Lower Body Dressing (QC): 4 (SBA) On/Off Footwear (QC): 5 Toileting Hygiene (QC): 4 (supervision) Toilet Transfer (QC): 4 (Supervision) Assessment/Plan Assessment and Plan Assess & Plan/Chief Complaint Assessment: S/P L2-L5 lumbar laminectomy and L4-L5 fusion 02/02/2023 Anemia Paroxysmal Afib w/ RVR new onset post op Transaminitis HLD OA Depression Anxiety P PT/OT for rehabilitation Continue home medications NSR at this time. Continue Cardizem 120mg PO QD and Eliquis 5mg PO BID Monitor LFT's 02/11/2023: Monitor pain Maintain BM regimen 02/12/2023: Monitor closely Fall risk (1) Lumbar stenosis without neurogenic claudication PATRICIA RUBI DO Feb 12, 2023 05:35
[2023-02-12] MEDS: MULTIVIT W/MINERALS TAB (THERAGRAN M) PO SCH (06:53)
[2023-02-12 07:37] VITALS: BP 140/63
--- NOTE | 2023-02-12 07:45 | Occupational Ther Daily Note ---
OT Current Status-Daily Note Subjective Pt found laying in bed, alert. Pt agrees to therapy. No c/o pain. Mental Status/Objective Patient Orientation: Person, Place, Time, Situation Attachments: Other-See Comments (back brace) ADL-Treatment Pt completed sponge bath at sink. Pt independent with supine <--> EOB. Supervision for ambulation from bed to bathroom. Sitting at sink, pt completed sponge bath with supervision. Pt maintained back precautions throughout session. Required SBA and verbal cues for efficient donning/doffing back brace. Set up for UBD. SBA in standing to hike pants over hips, threaded over feet by self using figure 4 technique. Setup for footwear using figure 4 technique. Independent standing at sink to complete oral care. Therapy Code Descriptions/Definitions Functional [place] Measure: 0=Not Assessed/NA 4=Minimal Assistance 1=Total Assistance 5=Supervision or Setup 2=Maximal Assistance 6=Modified [place] 3=Moderate Assistance 7=Complete IndependenceSCALE: Activities may be completed with or without assistive devices. 2-Awktwmuzsq-xmvxhfx completes the activity by him/herself with no assistance from a helper. 5-Set-up or Clean-up Assistance-helper sets up or cleans up; patient completes activity. [place] assists only prior to or following the activity. 4-Supervision or Touching Assistance-helper provides verbal cues and/or touching/steadying and/or contact guard assistance as patient completes activity. Assistance may be provided throughout the activity or intermittently. 3-Partial/Moderate Assistance-helper does LESS THAN HALF the effort. [place] lifts, holds or supports trunk or limbs, but provides less than half the effort. 2-Substantial/Maximal Assistance-helper does MORE THAN HALF the effort. [place] lifts or holds trunk or limbs and provides more than half the effort. 8-Btbpxbcnp-chacfx does ALL the effort. Patient does none of the effort to complete the activity. Or, the assistance of 2 or more helpers is required for the patient to complete the activity. If activity was not attempted, code reason: 7-Patient Refused. 9-Not Applicable-not attempted and the patient did not perform the activity before the current illness, exacerbation or injury. 10-Not Attempted due to Environmental Limitations-(lack of equipment, weather restraints, etc.). 88-Not Attempted due to Medical Conditions or Safety Concerns. Eating (QC): 6 Oral Hygiene (QC): 6 Shower/Bathe Self (QC): 4 Upper Body Dressing (QC): 4 Lower Body Dressing (QC): 4 On/Off Footwear: 5 Other Treatment Pt completed arm bike for 8 min at 20 morrow resistance to increase strength and activity tolerance for daily functional tasks. Wrist flex/ext/uln dev/rad dev with 2# wt 2 sets 10 reps each for strengthening. After therapy, pt lying in bed with call light/phone in reach. All needs met in room. OT Short Term Goals Short Term Goals Time Frame: Feb 18, 2023 Toileting hygiene: 5 Shower/bathe self: 5 Upper body dressin Lower body dressin Putting on/taking off footwear: 5 OT Nursing Home Goals Treasurer Goals Time Frame: Feb 27, 2023 Acute change in mental status: 0 Inattention: 0 Disorganized thinkin Altered level of consciousness: 0 Eating (QC): 6 Oral Hygiene (QC): 6 Toileting Hygiene (QC): 6 Shower/Bathe Self (QC): 5 Upper Body Dressing (QC): 6 Lower Body Dressing (QC): 6 On/Off Footwear (QC): 6 Additional Goals: 1-Demonstrate ADL Tasks, 2-Verbalize Understanding, 3- ImproveStrength/Nicky 1=Demonstrate adherence to instructed precautions during ADL tasks. 2=Patient will verbalize/demonstrate understanding of assistive devices/modifications for ADL. 3=Patient will improve strength/tolerance for activity to enable patient to perform ADL's. OT Education/Plan Problem List/Assessment Assessment: Decreased UE Strength, Impaired Self-Care Skills Discharge Recommendations Plan/Recommendations: Continue POC Treatment Plan/Plan of Care Patient would benefit from OT for education, treatment and training to promote independence in ADL's, mobility, safety and/or upper extremity function for ADL's. Plan of Care: ADL Retraining, Functional Mobility, Group Exercise/Act as Ind, UE Funct Exercise/Act Treatment Duration: Feb 27, 2023 Frequency: At least 5 of 7 days/Wk (IRF) Estimated Hrs Per Day: 1.5 hours per day Agreement: Yes Rehab Potential: Good Time Start Time: 07:30 Stop Time: 08:30 DATE: Feb 12, 2023 Total Time Billed (hr/min): 60 Billed Treatment Time 1 visit-ADL 2 (30 min) EX 2 (30 min) FLOR SANTORO Feb 12, 2023 07:45
[2023-02-12] MEDS: ASPIRIN E.C. 81 MG (ECOTRIN) TAB PO SCH (07:51)
[2023-02-12] MEDS: APIXABAN 5 MG (ELIQUIS) TABLET PO SCH ×2 (07:52→20:37)
[2023-02-12] MEDS: OMEGA 3 (FISH OIL) 1000 MG CAP PO SCH ×2 (07:52→20:37)
[2023-02-12] MEDS: VITAMIN D3 25 MCG (1,000 UNITS) TABLET PO SCH (07:52)
[2023-02-12] MEDS: FLUoxetine HCL 20 MG (PROzac) CAP PO SCH (07:52)
[2023-02-12] MEDS: dilTIAZem120 MG (CARDIZEM CD) CAP PO SCH (07:54)
[2023-02-12] MEDS: DOCUSATE SODIUM 100 MG (COLACE) CAP PO SCH ×3 (07:54→20:45)
[2023-02-12] MEDS: SENNA W/DOCUSATE (SENOKOT S) TABLET PO SCH ×3 (07:55→20:45)
[2023-02-12] MEDS: polyethylene glycoL POWDER 17 GM (MIRALAX) PACK PO SCH ×3 (07:55→20:45)
--- NOTE | 2023-02-12 08:22 | Cardiology Progress Note ---
Subjective Date Seen by Provider: Feb 12, 2023 Time Seen by Provider: 08:21 Subjective/Events-last exam Patient is with PT, no new complaints. Denies any chest pain or dyspnea. Objective-Cardiology Exam Last Set of Vital Signs Vital Signs 02/12/23 07:37 Temp 36.5 Pulse 70 Resp 16 B/P (MAP) 140/63 (88) Pulse Ox 92 O2 Delivery Room Air I&O Intake and Output 02/12/23 00:00 Intake Total 1400 ml Balance 1400 ml Intake Oral 1400 ml # Voids 7 General: Alert, Oriented X3 HEENT: Atraumatic, PERRLA Lungs: Clear to Auscultation, Normal Air Movement Heart: Regular Rate, Normal S1, Normal S2 Abdomen: Normal Bowel Sounds, Soft Extremities: No Edema Skin: No Rashes, No Significant Lesion Neuro: Normal Speech A/P-Cardiology Admission Diagnosis PAF Elevated LFTs HLP DDD Assessment/Plan Paroxysmal atrial fibrillation, per records received from [place], patient had brief episode AFib with RVR post op day 3 with HR in the 130s. Converted on Cardizem gtt and currently on PO Cardizem and Eliquis. I will evaluate EKG, place on telemetry. Pateint reports 2D Echo done at [place], I will try to obtain copy of records for further review. Degenerative disc disease, s/p lumbar laminectomy and L4-L5 fusion. Continue PT/OT Elevaetd LFTs, Transaminitis, unknown etiology, per records reviewed, thought to be secondary to use of statins. Will continue to monitor LFTs HLP, was maintained on statin as outpatient, recently discontinued. Anemia, continue to monitor H/H Anxiety/Depression, managment per medical services. Supervisory-Addendum Brief Supervisory Addendum Participated in pt care: history, MDM, physical Personally performed: exam, history, MDM Care discussed with: DELIO Results interpretation: Verified all documentation Notes: Patient was seen and evaluated with Maia, examination performed, management plan was discussed, agree with the current scribed note, I made few changes to the note using Italic font Patient was seen and evaluated Continue on telemetry and continue Eliquis No changes are recommended MAIA LOZANO Feb 12, 2023 08:22 TOMMIE WAGNER MD Feb 12, 2023 08:47
--- NOTE | 2023-02-12 09:29 | Physical Therapy Daily Note ---
PT Daily Note-Current Subjective Patient rates her back pain as 5/10 in supine. States she had a pain paill ~ 30 minutes ago. She has no increased with gait. States the pain in her (L) groin is less. Pain Section J - Health Conditions 1. Rarely or not at all 2. Occasionally 3. Frequently 4. Almost constantly 8. Unable to answer Pain Effect on Sleep: 2 Pain Interference with Therapy: 2 Pain Interference w/Day-to-Day: 3 Transfers SCALE: Activities may be completed with or without assistive devices. 1-Aolfblpnfh-aoyollw completes the activity by him/herself with no assistance from a helper. 5-Set-up or Clean-up Assistance-helper sets up or cleans up; patient completes activity. [place] assists only prior to or following the activity. 4-Supervision or Touching Assistance-helper provides verbal cues and/or touching/steadying and/or contact guard assistance as patient completes activity. Assistance may be provided throughout the activity or intermittently. 3-Partial/Moderate Assistance-helper does LESS THAN HALF the effort. [place] lifts, holds or supports trunk or limbs, but provides less than half the effort. 2-Substantial/Maximal Assistance-helper does MORE THAN HALF the effort. [place] lifts or holds trunk or limbs and provides more than half the effort. 1-Kpvaqvhgq-szpvch does ALL the effort. Patient does none of the effort to complete the activity. Or, the assistance of 2 or more helpers is required for the patient to complete the activity. If activity was not attempted, code reason: 7-Patient Refused. 9-Not Applicable-not attempted and the patient did not perform the activity before the current illness, exacerbation or injury. 10-Not Attempted due to Environmental Limitations-(lack of equipment, weather restraints, etc.). 88-Not Attempted due to Medical Conditions or Safety Concerns. Roll Left & Right (QC): 5 (SBA-mod (I) with 1 cue to bend (L) knee to push to roll (R). Uses bedrail. ) Sit to Lying (QC): 6 ((I) with bedrail) Sit to Stand (QC): 6 (to FWW) Chair/Xjc-sm-Dmjtg Xfer(QC): 6 (with FWW) Also practiced supine>sit on ozuna mat in gym using walker as her bed rail. Needed cue to bend (R) knee and reach across body with (R) arm to roll (L), but then able to complete rolling and come to sitting position (I). Weight Bearing Weight Bearing/Tolerated Weight Bearing/Tolerated Gait Training Does the Patient Walk?: Yes Distance: 500' (I) with FWW, no rest break Walk 10 feet (QC): 6 Walk 50 ft with 2 Turns(QC): 6 Walk 150 ft (QC): 6 Gait Assistive Device: FWW Exercises Mat exercise: TA's 10 x :05 with t.c. and v.c.in hooklying Iso hip adduction/ball squeeze in hooklying 10 x :05 Hooklying bent knee fall out with TA x 10, cues for TA with each rep Hooklying heel slides (R) with TA x 5 Hooklying heel slides (L) with TA x 5 HEP prepared for patient, reviewed with patient and placed in patient's room for completion during evenings/weekends. NuStep Minutes: 9 NuStep Workload: 3 (UE's and LE's ) Assessment Current Status: Good Progress Patient tolerated TA/mat ex well, but was sleepy and needed prn cues to stay awake during treatment on mat. Has progressed to SBA-(I) with bed mobility and increased gait distance to 500' with FWW without rest. PT Detention Goals In Store Demonstrator Goals PT Detention Goals Time Frame: Feb 27, 2023 Roll Left & Right (QC): 6 (with use of bed rail/walker for rail) Sit to Lying (QC): 6 (with use of bed rail/walker for rail) Lying-Sitting on Side/Bed(QC): 6 (with use of bed rail/walker for rail) Sit to Stand (QC): 6 Chair/Bxd-jp-Oatnu Xfer(QC): 6 (with FWW) Toilet Transfer (QC): 6 (with FWW ) Car Transfer (QC): 5 (with FWW) Does the Patient Walk: Yes Walk 10 feet (QC): 6 (with FWW and TLSO) Walk 50ft with 2 Turns (QC): 6 (with FWW and TLSO) Walk 150 ft (QC): 6 (500' with FWW and TLSO) Walking 10ft on Uneven Surface: 6 (with FWW and TLSO) 1 Step (curb) (QC): 6 4 Steps (QC): 6 (with railings) 12 Steps (QC): 5 (with railings) Picking up an Object (QC): 6 (with prototype technician due to spine precautions) Does the Pt use WC or Scooter?: No Wheel 50 feet with 2 turns (QC: 9 Wheel 150 feet: 9 PT Plan Problem List Problem List: Activity Tolerance, Functional Strength, Balance, Gait, Transfer, Bed Mobility, ROM, Other Spine protection, TLSO on with all activity. Treatment/Plan Treatment Plan: Continue Plan of Care Treatment Plan: Bed Mobility, Education, Functional Activity Nicky, Functional Strength, Group Therapy, Gait, Safety, Therapeutic Exercise, Transfers, Other (stair/curb training) Treatment Duration: Feb 27, 2023 Frequency: At least 5 of 7 days/Wk (IRF) Estimated Hrs Per Day: 1.5 hours per day Patient and/or Family Agrees t: Yes Safety Risks/Education Patient Education: Issued Written HEP Time Time In: 900 Time Out: 1015 DATE: Feb 12, 2023 Total Billed Treatment Time: 75 Total Billed Treatment 40' exercise, 15' gait, 20 functional activity = 75 Jennifer Morris PT Feb 12, 2023 09:29
--- NOTE | 2023-02-12 14:14 | Therapy Group Daily Note ---
Therapy Daily Group Note Patient Education Topic Other List Below (environmental safety signs) Exercises LE Seated Exercise, UE Exercise Session Ratio (pt:therapist): 3:1 Goal of Session: Home Safety Strategies, UE/LE Strengthing Goal Met for this Session: Yes Pt Benefit of Group: Contributions to Others, F/U Use of Strategies @Home, Increased Functional Safety, Increased Functional Strength, Improved Cognition, Recognition of Peers, Socialization Other/Notes Pt ambulated using FWW to [facility] for OT/PT group. Group consisted of introductions (name, place living, favorite childhood game), socialization, B UE/LE seated exercises, Environmental Bingo with education on various topics from activity. Pt introduced self appropriately and actively listened to peers. Pt able to complete B UE/LE seated exercises, tolerated well. Pt was able to search, scan and place small items on designated spots to participate in fine/gross motor activity. Pt able to verbalize understanding of all topics and acknowledge understanding by giving personal examples. After group, pt lying in bed with call light/phone in reach. All needs met in room. Start Time: 13:00 Stop Time: 14:00 Total Billed Treatment Time: 60 Total Billed Treatment 1 visit-FLOR MCKEON Feb 12, 2023 14:14
[2023-02-12] MEDS: CALCIUM CARBONATE 600 MG (CALCARB) TAB PO SCH (17:45)
[2023-02-12] MEDS: ACETAMINOPHEN 325 MG TABLET PO PRN (20:06)
[2023-02-12] MEDS: BACLOFEN 10 MG (LIORESAL) TAB PO PRN (20:06)
[2023-02-12 20:09] VITALS: BP 145/71
[2023-02-12] MEDS ORDERED: COQ10 100 MG PO SCH (21:00)
[2023-02-13] MEDS: MULTIVIT W/MINERALS TAB (THERAGRAN M) PO SCH (06:42)
--- NOTE | 2023-02-13 08:20 | Occupational Ther Daily Note ---
OT Current Status-Daily Note Subjective Pt in recliner, agreeable to OT Tx. Pt reports she didn't sleep super well last night ADL-Treatment Therapy Code Descriptions/Definitions Functional [place] Measure: 0=Not Assessed/NA 4=Minimal Assistance 1=Total Assistance 5=Supervision or Setup 2=Maximal Assistance 6=Modified [place] 3=Moderate Assistance 7=Complete IndependenceSCALE: Activities may be completed with or without assistive devices. 0-Bfaxymfjwc-dlpofzl completes the activity by him/herself with no assistance from a helper. 5-Set-up or Clean-up Assistance-helper sets up or cleans up; patient completes activity. [place] assists only prior to or following the activity. 4-Supervision or Touching Assistance-helper provides verbal cues and/or touching/steadying and/or contact guard assistance as patient completes activity. Assistance may be provided throughout the activity or intermittently. 3-Partial/Moderate Assistance-helper does LESS THAN HALF the effort. [place] lift s, holds or supports trunk or limbs, but provides less than half the effort. 2-Substantial/Maximal Assistance-helper does MORE THAN HALF the effort. [place] lifts or holds trunk or limbs and provides more than half the effort. 5-Qeijaqwbx-ofpxic does ALL the effort. Patient does none of the effort to complete the activity. Or, the assistance of 2 or more helpers is required for the patient to complete the activity. If activity was not attempted, code reason: 7-Patient Refused. 9-Not Applicable-not attempted and the patient did not perform the activity before the current illness, exacerbation or injury. 10-Not Attempted due to Environmental Limitations-(lack of equipment, weather restraints, etc.). 88-Not Attempted due to Medical Conditions or Safety Concerns. Eating (QC): 6 Oral Hygiene (QC): 6 Shower/Bathe Self (QC): 5 (set up to cover incision) Upper Body Dressing (QC): 4 Lower Body Dressing (QC): 4 On/Off Footwear: 5 Other Treatment Pt in recliner, used FWW to gather clothes and transfer into bathroom, SBA. Pt transferred to OR, doffed clothes, completed shower, then donned clothes. Pt stood at sink to complete grooming tasks, IND. Pt required a few VCs during dressing in order to adhere to back precautions (pt attempting to take steps prior to donning back brace, even after education). Pt used FWW to transfer to recliner, A. Pt took medications provided by RN, IND. Post tx, pt in recliner, call light in reach and all needs met. Education OT Patient Education: Correct positioning, Energy conservation, Modified ADL techniques, Progress toward Goal/Update tx plan, Purpose of tx/functional activities, Rehab process Teaching Recipient: Patient Teaching Methods: Discussion Response to Teaching: Verbalize Understanding OT Short Term Goals Short Term Goals Time Frame: Feb 18, 2023 Toileting hygiene: 5 Shower/bathe self: 5 Upper body dressin Lower body dressin Putting on/taking off footwear: 5 OT Service Center Technician Goals Service Center Technician Goals Time Frame: Feb 27, 2023 Acute change in mental status: 0 Inattention: 0 Disorganized thinkin Altered level of consciousness: 0 Eating (QC): 6 Oral Hygiene (QC): 6 Toileting Hygiene (QC): 6 Shower/Bathe Self (QC): 5 Upper Body Dressing (QC): 6 Lower Body Dressing (QC): 6 On/Off Footwear (QC): 6 Additional Goals: 1-Demonstrate ADL Tasks, 2-Verbalize Understanding, 3-ImproveStrength/Nicky 1=Demonstrate adherence to instructed precautions during ADL tasks. 2=Patient will verbalize/demonstrate understanding of assistive devices/modifications for ADL. 3=Patient will improve strength/tolerance for activity to enable patient to per form ADL's. OT Education/Plan Problem List/Assessment Assessment: Decreased Activ Tolerance, Decreased UE Strength, Impaired Funct Balance, Impaired I ADL's, Impaired Self-Care Skills Discharge Recommendations Plan/Recommendations: Continue POC Treatment Plan/Plan of Care Patient would benefit from OT for education, treatment and training to promote independence in ADL's, mobility, safety and/or upper extremity function for ADL's. Plan of Care: ADL Retraining, Functional Mobility, Group Exercise/Act as Ind, UE Funct Exercise/Act Treatment Duration: Feb 27, 2023 Frequency: At least 5 of 7 days/Wk (IRF) Estimated Hrs Per Day: 1.5 hours per day Agreement: Yes Rehab Potential: Good Time Start Time: 08:00 Stop Time: 09:00 DATE: Feb 13, 2023 Total Time Billed (hr/min): 60 Billed Treatment Time 1, ADL 4 CRUMPACKER,ADRYAN OT Feb 13, 2023 08:20
[2023-02-13] MEDS: FLUoxetine HCL 20 MG (PROzac) CAP PO SCH (08:39)
[2023-02-13] MEDS: dilTIAZem120 MG (CARDIZEM CD) CAP PO SCH (08:39)
[2023-02-13] MEDS: OMEGA 3 (FISH OIL) 1000 MG CAP PO SCH ×2 (08:39→20:06)
[2023-02-13] MEDS: ASPIRIN E.C. 81 MG (ECOTRIN) TAB PO SCH (08:40)
[2023-02-13] MEDS: DOCUSATE SODIUM 100 MG (COLACE) CAP PO SCH ×2 (08:40→20:06)
[2023-02-13] MEDS: oxyCODONE/APAP 5/325MG (PERCOCET 5) TABLET PO PRN ×2 (08:40→20:06)
[2023-02-13] MEDS: APIXABAN 5 MG (ELIQUIS) TABLET PO SCH ×2 (08:40→20:06)
[2023-02-13] MEDS: polyethylene glycoL POWDER 17 GM (MIRALAX) PACK PO SCH ×2 (08:41→20:07)
[2023-02-13] MEDS: SENNA W/DOCUSATE (SENOKOT S) TABLET PO SCH ×2 (08:41→20:07)
[2023-02-13] MEDS: VITAMIN D3 25 MCG (1,000 UNITS) TABLET PO SCH (08:42)
[2023-02-13 08:57] VITALS: BP 127/62
--- NOTE | 2023-02-13 09:47 | Physical Therapy Daily Note ---
PT Daily Note-Current Subjective Pt rates her pain as a 6/10 this a.m. States she feels "out of it". Has had pain meds this am, didn't sleep well last night Pain Section J - Health Conditions 1. Rarely or not at all 2. Occasionally 3. Frequently 4. Almost constantly 8. Unable to answer Pain Effect on Sleep: 3 Pain Interference with Therapy: 2 Pain Interference w/Day-to-Day: 3 Appearance Sleepy this a.m. -- difficulty staying awake and staying on task with exercise. Would forget what exercise she was completing in supine and sitting positions. Transfers SCALE: Activities may be completed with or without assistive devices. 9-Bvhnhxmsjj-zbtqffa completes the activity by him/herself with no assistance from a helper. 5-Set-up or Clean-up Assistance-helper sets up or cleans up; patient completes activity. [place] assists only prior to or following the activity. 4-Supervision or Touching Assistance-helper provides verbal cues and/or touching/steadying and/or contact guard assistance as patient completes activity. Assistance may be provided throughout the activity or intermittently. 3-Partial/Moderate Assistance-helper does LESS THAN HALF the effort. [place] lifts, holds or supports trunk or limbs, but provides less than half the effort. 2-Substantial/Maximal Assistance-helper does MORE THAN HALF the effort. [place] lifts or holds trunk or limbs and provides more than half the effort. 4-Aebsxpfti-qrztyu does ALL the effort. Patient does none of the effort to complete the activity. Or, the assistance of 2 or more helpers is required for the patient to complete the activity. If activity was not attempted, code reason: 7-Patient Refused. 9-Not Applicable-not attempted and the patient did not perform the activity before the current illness, exacerbation or injury. 10-Not Attempted due to Environmental Limitations-(lack of equipment, weather restraints, etc.). 88-Not Attempted due to Medical Conditions or Safety Concerns. Roll Left & Right (QC): 5 (SBA with cues to use arm to reach across body to log roll on mat.Completed in transitional apt on regular bed as well x 4 to each direction with cues to push with leg and reach across body. Patient performed last rep without cues. ) Sit to Lying (QC): 6 (Sits up and brings legs onto bed, bends knees then lays down.) Lying to Sitting/Side of Bed(Q: 6 (with use of walker as bedrail) Sit to Stand (QC): 5 (SBA-mod (I) to FWW) Chair/Hvc-zo-Hfadw Xfer(QC): 5 (SBA with FWW) Weight Bearing Weight Bearing/Tolerated Weight Bearing/Tolerated Gait Training Does the Patient Walk?: Yes Distance: 500' and 250' Walk 10 feet (QC): 6 Walk 50 ft with 2 Turns(QC): 5 (SBA-mod (I) due to patient being sleepy this a.m.) Walk 150 ft (QC): 5 (SBA-mod (I)) Gait Assistive Device: FWW Tended to scissor legs more today with gait, able to self-correct without LOB - may be due to fatigue/patient not sleeping well last night. Stair Training Stair Training: Handrails/: 2 handrails 4 Steps (QC): 4 (CGA up/ down 4 steps x 3) 12 Steps (QC): 4 ((B) rails.) Stairs: Pattern: Reciprocal Exercises TA's 10 x :05 with t.c. and v.c.in hooklying v.c. for each rep to stay on task Iso hip adduction/ball squeeze in hooklying 10 x :05 v.c. for each rep to stay on task Hooklying bent knee fall out with TA x 10, cues for TA with each rep and v.c to stay on task Hooklying heel slides (R) with TA x 10, v.c. with each rep to stay on task Hooklying heel slides (L) with TA x 5. v.c. each rep to stay on task LAQ x 10 x :05 (B) with cues each rep to stay on task. seated ex at EOB: YTB PF x 20 (B) with cues for each rep YTB ham curls x 20 (R) with cues for each rep Heel lifts/toe lifts x 20 (B) LAQ x 20 (B) NuStep Minutes: 20 NuStep Workload: 4 Treatments Cognitive tasks whiile walking to names food with letters A-Z - min cues.. Cognitive tasks during Nustep to name fruits/veggies with letters A-Z - min cues. Patient moved from 223 to 226/transitional apt. Assessment Patient sleepy/difficutly staying on task with ex without cues or mental tasks to stay awake. States she feels "out of it" today. PT Shoe Repairer Apprentice Goals Penitentiary Goals PT Penitentiary Goals Time Frame: Feb 27, 2023 Roll Left & Right (QC): 6 (with use of bed rail/walker for rail) Sit to Lying (QC): 6 (with use of bed rail/walker for rail) Lying-Sitting on Side/Bed(QC): 6 (with use of bed rail/walker for rail) Sit to Stand (QC): 6 Chair/Oln-ko-Jryjg Xfer(QC): 6 (with FWW) Toilet Transfer (QC): 6 (with FWW ) Car Transfer (QC): 5 (with FWW) Does the Patient Walk: Yes Walk 10 feet (QC): 6 (with FWW and TLSO) Walk 50ft with 2 Turns (QC): 6 (with FWW and TLSO) Walk 150 ft (QC): 6 (500' with FWW and TLSO) Walking 10ft on Uneven Surface: 6 (with FWW and TLSO) 1 Step (curb) (QC): 6 4 Steps (QC): 6 (with railings) 12 Steps (QC): 5 (with railings) Picking up an Object (QC): 6 (with inspector boiler due to spine precautions) Does the Pt use WC or Scooter?: No Wheel 50 feet with 2 turns (QC: 9 Wheel 150 feet: 9 PT Plan Treatment/Plan Treatment Plan: Continue Plan of Care Treatment Plan: Bed Mobility, Education, Functional Activity Nicky, Functional Strength, Group Therapy, Gait, Safety, Therapeutic Exercise, Transfers, Other (stair/curb training) Treatment Duration: Feb 27, 2023 Frequency: At least 5 of 7 days/Wk (IRF) Estimated Hrs Per Day: 1.5 hours per day Patient and/or Family Agrees t: Yes Time Time In: 900 Time Out: 1030 DATE: Feb 13, 2023 Total Billed Treatment Time: 90 Total Billed Treatment 90' -- Ex 40, Gt 30, FA 20 Jennifer Morris PT Feb 13, 2023 09:47
--- NOTE | 2023-02-13 10:34 | Cardiology Progress Note ---
Subjective Date Seen by Provider: Feb 13, 2023 Time Seen by Provider: 10:33 Subjective/Events-last exam Patient was seen at bedside, laying down comfortably, feeling better. No new complaint Review of Systems General: No Chills, No Night Sweats; Fatigue, Malaise; No Appetite, No Other HEENT: No Head Aches, No Visual Changes, No Eye Pain, No Ear Pain, No Dysphasia, No Sinus Congestion, No Post Nasal Drip, No Sore Throat, No Other Pulmonary: No Dyspnea, No Cough, No Pleuritic Chest Pain, No Other Cardiovascular: No: Chest Pain, Palpitations, Orthopnea, Paroxysmal Noc. Dyspnea, Edema, Lt Headedness, Other Objective-Cardiology Exam Last Set of Vital Signs Vital Signs 02/13/23 02/13/23 08:57 09:00 Temp 36.6 Pulse 84 Resp 16 B/P (MAP) 127/62 (83) Pulse Ox 94 O2 Delivery Room Air I&O Intake and Output 02/13/23 00:00 Intake Total 1185 ml Balance 1185 ml Intake Oral 1185 ml # Voids 7 General: Alert, Oriented X3 HEENT: Atraumatic, PERRLA Lungs: Clear to Auscultation, Normal Air Movement Heart: Regular Rate, Normal S1, Normal S2 Abdomen: Normal Bowel Sounds, Soft Extremities: No Clubbing, No Cyanosis, No Edema Skin: No Rashes, No Significant Lesion Neuro: Normal Speech Psych/Mental Status: Mental Status NL, Mood NL A/P-Cardiology Admission Diagnosis PAF Elevated LFTs HLP DDD Assessment/Plan Paroxysmal atrial fibrillation, per records received from [place], patient had brief episode AFib with RVR post op day 3 with HR in the 130s. Converted on Car dizem gtt and currently on PO Cardizem and Eliquis. Continue to monitor telemetry Degenerative disc disease, s/p lumbar laminectomy and L4-L5 fusion. Continue PT/OT Elevaetd LFTs, Transaminitis, unknown etiology, per records reviewed, thought to be secondary to use of statins. Will continue to monitor LFTs HLP, was maintained on statin as outpatient, recently discontinued. Anemia, continue to monitor H/H Anxiety/Depression, managment per medical services. TOMMIE WAGNER MD Feb 13, 2023 10:34
--- NOTE | 2023-02-13 10:47 | PM&R Progress Note ---
Subjective HPI/CC On Admission Date Seen by Provider: Feb 13, 2023 Time Seen by Provider: 10:45 Subjective/Events-last exam 02/13/2023: No major issues Moved to 226 independent room No falls No pain except when walking 02/12/2023: Much improved status No new issues BM regimen maintained No falls 02/11/2023: Much improved status BM+ after laxatives Pain improved Participation is good No falls Review of Systems General: Fatigue, Malaise Neurological: Weakness Objective Exam Vital Signs Vital Signs Date Time Temp Pulse Resp B/P (MAP) Pulse Ox O2 Delivery O2 Flow Rate FiO2 02/13/23 12:44 75 02/13/23 09:00 94 Room Air 02/13/23 08:57 36.6 16 127/62 (83) Capillary Refill : General Appearance: No Apparent Distress, WD/WN, Anxious, Chronically ill HEENT: PERRL/EOMI, Normal ENT Inspection, Pharynx Normal Neck: Full Range of Motion, Normal Inspection, Non Tender, Supple, Carotid Bruit Respiratory: Chest Non Tender, Lungs Clear, Normal Breath Sounds, No Accessory Muscle Use, No Respiratory Distress Cardiovascular: Regular Rate, Rhythm, No Edema, No Gallop, No JVD, No Murmur, Normal Peripheral Pulses Gastrointestinal: Normal Bowel Sounds, No Organomegaly, No Pulsatile Mass, Non Tender, Soft Back: Normal Inspection, No Vertebral Tenderness, Decreased Range of Motion, Muscle Spasm, Vertebral Tenderness Extremity: Normal Capillary Refill, Normal Inspection, Normal Range of Motion, Non Tender, No Calf Tenderness, No Pedal Edema Neurologic/Psychiatric: Alert, Oriented x3, No Motor/Sensory Deficits, flight paramedic II- XII Norm as Tested, Depressed Affect Skin: Normal Color, Warm/Dry Lymphatic: No Adenopathy Results/Procedures Lab Patient resulted labs reviewed. FIM Transfers Therapy Code Descriptions/Definitions Functional [place] Measure: 0=Not Assessed/NA 4=Minimal Assistance 1=Total Assistance 5=Supervision or Setup 2=Maximal Assistance 6=Modified [place] 3=Moderate Assistance 7=Complete IndependenceSCALE: Activities may be completed with or without assistive devices. 8-Sdcsrorkux-cxvrfrw completes the activity by him/herself with no assistance from a helper. 5-Set-up or Clean-up Assistance-helper sets up or cleans up; patient completes activity. [place] assists only prior to or following the activity. 4-Supervision or Touching Assistance-helper provides verbal cues and/or touching/steadying and/or contact guard assistance as patient completes activity. Assistance may be provided throughout the activity or intermittently. 3-Partial/Moderate Assistance-helper does LESS THAN HALF the effort. [place] lifts, holds or supports trunk or limbs, but provides less than half the effort. 2-Substantial/Maximal Assistance-helper does MORE THAN HALF the effort. [place] l ifts or holds trunk or limbs and provides more than half the effort. 4-Leyystapq-irciae does ALL the effort. Patient does none of the effort to complete the activity. Or, the assistance of 2 or more helpers is required for the patient to complete the activity. If activity was not attempted, code reason: 7-Patient Refused. 9-Not Applicable-not attempted and the patient did not perform the activity before the current illness, exacerbation or injury. 10-Not Attempted due to Environmental Limitations-(lack of equipment, weather restraints, etc.). 88-Not Attempted due to Medical Conditions or Safety Concerns. Roll Left to Right (QC): 5 (SBA-mod (I) with 1 cue to bend (L) knee to push to roll (R). Uses bedrail. ) Sit to Lying (QC): 6 ((I) with bedrail) Sit to Stand (QC): 6 (to FWW) Chair/Aho-pt-Lcpeq Xfer(QC): 6 (with FWW) Car Transfer (QC): 3 (Min (A) ) Gait Training Does the Patient Walk?: Yes Distance: 500' (I) with FWW, no rest break Walk 10 feet (QC): 6 Walk 50 ft with 2 Turns(QC): 6 Walk 150 ft (QC): 6 Walking 10ft/uneven surface-QC: 3 (min (A) with FWW) Gait Assistive Device: FWW Wheelchair Training Does the Pt Use a Wheelchair?: No Wheel 50 ft with 2 turns (QC): 9 Wheel 150 ft (QC): 9 Stair Training #of Steps: 6 1 Step (curb) (QC): 3 (Min (A) with cues for walker placement) 4 Steps (QC): 3 (Min (A) with cues for stepping strategy, (B) handrails.) 12 Steps (QC): 88 (NT due to pain /p transfer and not yet getting pain meds.) Balance Picking up an Object (QC): 5 (with FWW and pharmacy technician trainee) ADL-Treatment Eating (QC): 6 Oral Hygiene (QC): 6 Shower/Bathe Self (QC): 5 (set up to cover incision) Upper Body Dressing (QC): 4 Lower Body Dressing (QC): 4 On/Off Footwear (QC): 5 Toileting Hygiene (QC): 4 (supervision) Toilet Transfer (QC): 4 (Supervision) Assessment/Plan Assessment and Plan Assess & Plan/Chief Complaint Assessment: S/P L2-L5 lumbar laminectomy and L4-L5 fusion 02/02/2023 Anemia Paroxysmal Afib w/ RVR new onset post op Transaminitis HLD OA Depression Anxiety OAC P PT/OT for rehabilitation Continue home medications NSR at this time. Continue Cardizem 120mg PO QD and Eliquis 5mg PO BID Monitor LFT's 02/11/2023: Monitor pain Maintain BM regimen 02/12/2023: Monitor closely Fall risk 02/13/2023: Independent room Monitor closely (1) Lumbar stenosis without neurogenic claudication PATRICIA RUBI DO Feb 13, 2023 10:47
--- NOTE | 2023-02-13 10:49 | Occupational Ther Daily Note ---
OT Current Status-Daily Note Subjective Pt in bed, recently moved to room 226 (transitional apartment room) in order to simulate her home environment. ADL-Treatment Therapy Code Descriptions/Definitions Functional [place] Measure: 0=Not Assessed/NA 4=Minimal Assistance 1=Total Assistance 5=Supervision or Setup 2=Maximal Assistance 6=Modified [place] 3=Moderate Assistance 7=Complete IndependenceSCALE: Activities may be completed with or without assistive devices. 6-Okzijgjrgp-astqtli completes the activity by him/herself with no assistance from a helper. 5-Set-up or Clean-up Assistance-helper sets up or cleans up; patient completes activity. [place] assists only prior to or following the activity. 4-Supervision or Touching Assistance-helper provides verbal cues and/or touching/steadying and/or contact guard assistance as patient completes activity. Assistance may be provided throughout the activity or intermittently. 3-Partial/Moderate Assistance-helper does LESS THAN HALF the effort. [place] lifts, holds or supports trunk or limbs, but provides less than half the effort. 2-Substantial/Maximal Assistance-helper does MORE THAN HALF the effort. [place] lifts or holds trunk or limbs and provides more than half the effort. 0-Wangwzbiw-irzedf does ALL the effort. Patient does none of the effort to complete the activity. Or, the assistance of 2 or more helpers is required for the patient to complete the activity. If activity was not attempted, code reason: 7-Patient Refused. 9-Not Applicable-not attempted and the patient did not perform the activity before the current illness, exacerbation or injury. 10-Not Attempted due to Environmental Limitations-(lack of equipment, weather restraints, etc.). 88-Not Attempted due to Medical Conditions or Safety Concerns. Upper Body Dressing (QC): 5 (set up with back brace.) Other Treatment Pt laying in bed, transferred supine to sit EOB, using walker as a bed cane, no VCs required to maintain back precautions with transfer. Pt donned back brace, and completed UE reaching task seated EOB. Pt placed/removed nuts/bolts from b lock, BUEs, x16 total. Pt doffed back brace, and transferred supine, no VCs required for back precautions. Post tx, pt in bed, call light in reach and all needs met. OT encouraged pt to use call light and go for a walk later with staff in hallways, she verbalized understanding. OT Short Term Goals Short Term Goals Time Frame: Feb 18, 2023 Toileting hygiene: 5 Shower/bathe self: 5 Upper body dressin Lower body dressin Putting on/taking off footwear: 5 OT Developer Analyst Goals Developer Analyst Goals Time Frame: Feb 27, 2023 Acute change in mental status: 0 Inattention: 0 Disorganized thinkin Altered level of consciousness: 0 Eating (QC): 6 Oral Hygiene (QC): 6 Toileting Hygiene (QC): 6 Shower/Bathe Self (QC): 5 Upper Body Dressing (QC): 6 Lower Body Dressing (QC): 6 On/Off Footwear (QC): 6 Additional Goals: 1-Demonstrate ADL Tasks, 2-Verbalize Understanding, 3- ImproveStrength/Nicky 1=Demonstrate adherence to instructed precautions during ADL tasks. 2=Patient will verbalize/demonstrate understanding of assistive devices/modifications for ADL. 3=Patient will improve strength/tolerance for activity to enable patient to perform ADL's. OT Education/Plan Problem List/Assessment Assessment: Decreased Activ Tolerance, Decreased UE Strength, Impaired I ADL's Discharge Recommendations Plan/Recommendations: Continue POC Treatment Plan/Plan of Care Patient would benefit from OT for education, treatment and training to promote independence in ADL's, mobility, safety and/or upper extremity function for ADL's. Plan of Care: ADL Retraining, Functional Mobility, Group Exercise/Act as Ind, UE Funct Exercise/Act Treatment Duration: Feb 27, 2023 Frequency: At least 5 of 7 days/Wk (IRF) Estimated Hrs Per Day: 1.5 hours per day Agreement: Yes Rehab Potential: Good Time Start Time: 10:30 Stop Time: 11:00 DATE: Feb 13, 2023 Total Time Billed (hr/min): 30 Billed Treatment Time 1, FA 2 ADRYAN QUICK OT Feb 13, 2023 10:49
[2023-02-13] MEDS: CALCIUM CARBONATE 600 MG (CALCARB) TAB PO SCH (18:04)
[2023-02-13 20:07] VITALS: BP 160/71
[2023-02-14] MEDS: MELATONIN 3 MG TABLET PO PRN ×2 (01:30→20:42)
[2023-02-14] MEDS: oxyCODONE/APAP 5/325MG (PERCOCET 5) TABLET PO PRN ×2 (06:12→20:42)
[2023-02-14] MEDS: MULTIVIT W/MINERALS TAB (THERAGRAN M) PO SCH (06:12)
--- NOTE | 2023-02-14 06:22 | PM&R Progress Note ---
Subjective HPI/CC On Admission Date Seen by Provider: Feb 14, 2023 Time Seen by Provider: 11:00 Subjective/Events-last exam 02/14/2023: Doing well Pain controlled BM+ Walking well 02/13/2023: No major issues Moved to 226 independent room No falls No pain except when walking 02/12/2023: Much improved status No new issues BM regimen maintained No falls 02/11/2023: Much improved status BM+ after laxatives Pain improved Participation is good No falls Review of Systems General: Fatigue, Malaise Objective Exam Vital Signs Vital Signs Date Time Temp Pulse Resp B/P (MAP) Pulse Ox O2 Delivery O2 Flow Rate FiO2 02/14/23 07:27 36.3 81 18 112/57 (75) 91 Room Air Capillary Refill : General Appearance: No Apparent Distress, WD/WN, Anxious, Chronically ill HEENT: PERRL/EOMI, Normal ENT Inspection, Pharynx Normal Neck: Full Range of Motion, Normal Inspection, Non Tender, Supple, Carotid Bruit Respiratory: Chest Non Tender, Lungs Clear, Normal Breath Sounds, No Accessory Muscle Use, No Respiratory Distress Cardiovascular: Regular Rate, Rhythm, No Edema, No Gallop, No JVD, No Murmur, Normal Peripheral Pulses Gastrointestinal: Normal Bowel Sounds, No Organomegaly, No Pulsatile Mass, Non Tender, Soft Back: Normal Inspection, No Vertebral Tenderness, Decreased Range of Motion, Muscle Spasm, Vertebral Tenderness Extremity: Normal Capillary Refill, Normal Inspection, Normal Range of Motion, Non Tender, No Calf Tenderness, No Pedal Edema Neurologic/Psychiatric: Alert, Oriented x3, No Motor/Sensory Deficits, olive picker II- XII Norm as Tested, Depressed Affect Skin: Normal Color, Warm/Dry Lymphatic: No Adenopathy Results/Procedures Lab Patient resulted labs reviewed. FIM Transfers Therapy Code Descriptions/Definitions Functional [place] Measure: 0=Not Assessed/NA 4=Minimal Assistance 1=Total Assistance 5=Supervision or Setup 2=Maximal Assistance 6=Modified [place] 3=Moderate Assistance 7=Complete IndependenceSCALE: Activities may be completed with or without assistive devices. 2-Azopgibnxs-oabqipk completes the activity by him/herself with no assistance from a helper. 5-Set-up or Clean-up Assistance-helper sets up or cleans up; patient completes activity. [place] assists only prior to or following the activity. 4-Supervision or Touching Assistance-helper provides verbal cues and/or touching/steadying and/or contact guard assistance as patient completes activity. Assistance may be provided throughout the activity or intermittently. 3-Partial/Moderate Assistance-helper does LESS THAN HALF the effort. [place] lifts, holds or supports trunk or limbs, but provides less than half the effort. 2-Substantial/Maximal Assistance-helper does MORE THAN HALF the effort. [place] lifts or holds trunk or limbs and provides more than half the effort. 3-Ncwgkphab-pkxpla does ALL the effort. Patient does none of the effort to complete the activity. Or, the assistance of 2 or more helpers is required for the patient to complete the activity. If activity was not attempted, code reason: 7-Patient Refused. 9-Not Applicable-not attempted and the patient did not perform the activity before the current illness, exacerbation or injury. 10-Not Attempted due to Environmental Limitations-(lack of equipment, weather restraints, etc.). 88-Not Attempted due to Medical Conditions or Safety Concerns. Roll Left to Right (QC): 5 (SBA with cues to use arm to reach across body to log roll on mat.Completed in transitional apt on regular bed as well x 4 to each direction with cues to push with leg and reach across body. Patient performed last rep without cues. ) Sit to Lying (QC): 6 (Sits up and brings legs onto bed, bends knees then lays down.) Sit to Stand (QC): 5 (SBA-mod (I) to FWW) Chair/Aff-rc-Vdyeq Xfer(QC): 5 (SBA with FWW) Car Transfer (QC): 3 (Min (A) ) Gait Training Does the Patient Walk?: Yes Distance: 500' and 250' Walk 10 feet (QC): 6 Walk 50 ft with 2 Turns(QC): 5 (SBA-mod (I) due to patient being sleepy this a.m.) Walk 150 ft (QC): 5 (SBA-mod (I)) Walking 10ft/uneven surface-QC: 3 (min (A) with FWW) Gait Assistive Device: FWW Wheelchair Training Does the Pt Use a Wheelchair?: No Wheel 50 ft with 2 turns (QC): 9 Wheel 150 ft (QC): 9 Stair Training Stair Training: Handrails/: 2 handrails #of Steps: 6 1 Step (curb) (QC): 3 (Min (A) with cues for walker placement) 4 Steps (QC): 4 (CGA up/ down 4 steps x 3) 12 Steps (QC): 4 ((B) rails.) Stairs: Pattern: Reciprocal Balance Picking up an Object (QC): 5 (with FWW and partner cco) ADL-Treatment Eating (QC): 6 Oral Hygiene (QC): 6 Shower/Bathe Self (QC): 5 (set up to cover incision) Upper Body Dressing (QC): 5 (set up with back brace.) Lower Body Dressing (QC): 4 On/Off Footwear (QC): 5 Toileting Hygiene (QC): 4 (supervision) Toilet Transfer (QC): 4 (Supervision) Assessment/Plan Assessment and Plan Assess & Plan/Chief Complaint Assessment: S/P L2-L5 lumbar laminectomy and L4-L5 fusion 02/02/2023 Anemia Paroxysmal Afib w/ RVR new onset post op Transaminitis HLD OA Depression Anxiety OAC P PT/OT for rehabilitation Continue home medications NSR at this time. Continue Cardizem 120mg PO QD and Eliquis 5mg PO BID Monitor LFT's 02/11/2023: Monitor pain Maintain BM regimen 02/12/2023: Monitor closely Fall risk 02/13/2023: Independent room Monitor closely 02/14/2023: Doing well (1) Lumbar stenosis without neurogenic claudication PATRICIA RUBI DO Feb 14, 2023 06:22
[2023-02-14 07:27] VITALS: BP 112/57
[2023-02-14] MEDS: OMEGA 3 (FISH OIL) 1000 MG CAP PO SCH ×2 (09:02→20:42)
[2023-02-14] MEDS: APIXABAN 5 MG (ELIQUIS) TABLET PO SCH ×2 (09:02→20:42)
[2023-02-14] MEDS: dilTIAZem120 MG (CARDIZEM CD) CAP PO SCH (09:02)
[2023-02-14] MEDS: FLUoxetine HCL 20 MG (PROzac) CAP PO SCH (09:02)
[2023-02-14] MEDS: ASPIRIN E.C. 81 MG (ECOTRIN) TAB PO SCH (09:03)
[2023-02-14] MEDS: VITAMIN D3 25 MCG (1,000 UNITS) TABLET PO SCH (09:03)
[2023-02-14] MEDS: SENNA W/DOCUSATE (SENOKOT S) TABLET PO SCH ×2 (09:03→20:45)
[2023-02-14] MEDS: DOCUSATE SODIUM 100 MG (COLACE) CAP PO SCH ×2 (09:03→20:44)
[2023-02-14] MEDS: polyethylene glycoL POWDER 17 GM (MIRALAX) PACK PO SCH ×2 (09:03→20:44)
[2023-02-14] MEDS: ACETAMINOPHEN 325 MG TABLET PO PRN (16:30)
[2023-02-14] MEDS: CALCIUM CARBONATE 600 MG (CALCARB) TAB PO SCH (18:40)
[2023-02-14 20:00] VITALS: BP 151/72
[2023-02-15] MEDS: ACETAMINOPHEN 325 MG TABLET PO PRN (03:06)
[2023-02-15] MEDS: BACLOFEN 10 MG (LIORESAL) TAB PO PRN (03:07)
[2023-02-15 06:35] LABS: BASOPHILS # (AUTO) 0.1 10^3/uL (0.0-0.1); BASOPHILS % (AUTO) 1 % (0-10); EOSINOPHILS # (AUTO) 0.2 10^3/uL (0.0-0.3); EOSINOPHILS % (AUTO) 3 % (0-10); HEMATOCRIT 37 % (35-52); HEMOGLOBIN 12.2 g/dL (11.5-16.0); LYMPHOCYTES # (AUTO) 1.4 10^3/uL (1.0-4.0); LYMPHOCYTES % (AUTO) 19 % (12-44); MEAN CORPUSCULAR HEMOGLOBIN 30 pg (25-34); MEAN CORPUSCULAR HGB CONC 33 g/dL (32-36); MEAN CORPUSCULAR VOLUME 91 fL (80-99); MEAN PLATELET VOLUME 9.5 fL (9.0-12.2); MONOCYTES # (AUTO) 0.6 10^3/uL (0.0-1.0); MONOCYTES % (AUTO) 8 % (0-12); NEUTROPHILS # (AUTO) 5.3 10^3/uL (1.8-7.8); NEUTROPHILS % (AUTO) 69 % (42-75); PLATELET COUNT 316 10^3/uL (130-400); WHITE BLOOD COUNT 7.8 10^3/uL (4.3-11.0)
[2023-02-15] MEDS: MULTIVIT W/MINERALS TAB (THERAGRAN M) PO SCH (06:37)
[2023-02-15] MEDS: oxyCODONE/APAP 5/325MG (PERCOCET 5) TABLET PO PRN ×3 (06:37→20:25)
[2023-02-15 06:48] LABS: ALBUMIN 3.7 GM/DL (3.2-4.5); POTASSIUM 4.3 MMOL/L (3.6-5.0)
[2023-02-15 06:49] LABS: CALCIUM 9.1 MG/DL (8.5-10.1)
[2023-02-15 06:51] LABS: TOTAL PROTEIN 6.4 GM/DL (6.4-8.2)
[2023-02-15 06:52] LABS: BILIRUBIN,TOTAL 0.5 MG/DL (0.1-1.0)
[2023-02-15 06:54] LABS: CREATININE SERUM 0.73 MG/DL (0.60-1.30)
--- NOTE | 2023-02-15 07:22 | PM&R Progress Note ---
Subjective HPI/CC On Admission Date Seen by Provider: Feb 15, 2023 Time Seen by Provider: 15:30 Subjective/Events-last exam 02/15/2023: Doing well No pain reported Knees gave out yesterday and it alarmed her Will talk to team and eval strength and fall risk prevention 02/14/2023: Doing well Pain controlled BM+ Walking well 02/13/2023: No major issues Moved to 226 independent room No falls No pain except when walking 02/12/2023: Much improved status No new issues BM regimen maintained No falls 02/11/2023: Much improved status BM+ after laxatives Pain improved Participation is good No falls Review of Systems General: Fatigue, Malaise Objective Exam Vital Signs Vital Signs Date Time Temp Pulse Resp B/P (MAP) Pulse Ox O2 Delivery O2 Flow Rate FiO2 02/16/23 01:00 64 02/15/23 21:29 Room Air 02/15/23 19:24 36.1 16 131/69 (89) 96 Capillary Refill : General Appearance: No Apparent Distress, WD/WN, Anxious, Chronically ill HEENT: PERRL/EOMI, Normal ENT Inspection, Pharynx Normal Neck: Full Range of Motion, Normal Inspection, Non Tender, Supple, Carotid Bruit Respiratory: Chest Non Tender, Lungs Clear, Normal Breath Sounds, No Accessory Muscle Use, No Respiratory Distress Cardiovascular: Regular Rate, Rhythm, No Edema, No Gallop, No JVD, No Murmur, Normal Peripheral Pulses Gastrointestinal: Normal Bowel Sounds, No Organomegaly, No Pulsatile Mass, Non Tender, Soft Back: Normal Inspection, No Vertebral Tenderness, Decreased Range of Motion, Muscle Spasm, Vertebral Tenderness Extremity: Normal Capillary Refill, Normal Inspection, Normal Range of Motion, Non Tender, No Calf Tenderness, No Pedal Edema Neurologic/Psychiatric: Alert, Oriented x3, No Motor/Sensory Deficits, chemical radiation technician II-X II Norm as Tested, Depressed Affect Skin: Normal Color, Warm/Dry Lymphatic: No Adenopathy Results/Procedures Lab Laboratory Tests 02/15/23 06:25 Patient resulted labs reviewed. FIM Transfers Therapy Code Descriptions/Definitions Functional [place] Measure: 0=Not Assessed/NA 4=Minimal Assistance 1=Total Assistance 5=Supervision or Setup 2=Maximal Assistance 6=Modified [place] 3=Moderate Assistance 7=Complete IndependenceSCALE: Activities may be completed with or without assistive devices. 9-Rqmrjrskqc-geoypai completes the activity by him/herself with no assistance from a helper. 5-Set-up or Clean-up Assistance-helper sets up or cleans up; patient completes activity. [place] assists only prior to or following the activity. 4-Supervision or Touching Assistance-helper provides verbal cues and/or touching/steadying and/or contact guard assistance as patient completes activity. Assistance may be provided throughout the activity or intermittently. 3-Partial/Moderate Assistance-helper does LESS THAN HALF the effort. [place] lifts, holds or supports trunk or limbs, but provides less than half the effort. 2-Substantial/Maximal Assistance-helper does MORE THAN HALF the effort. [place] lifts or holds trunk or limbs and provides more than half the effort. 1-Zcemcjrlm-xzoxzm does ALL the effort. Patient does none of the effort to complete the activity. Or, the assistance of 2 or more helpers is required for the patient to complete the activity. If activity was not attempted, code reason: 7-Patient Refused. 9-Not Applicable-not attempted and the patient did not perform the activity before the current illness, exacerbation or injury. 10-Not Attempted due to Environmental Limitations-(lack of equipment, weather restraints, etc.). 88-Not Attempted due to Medical Conditions or Safety Concerns. Roll Left to Right (QC): 5 (SBA with cues to use arm to reach across body to log roll on mat.Completed in transitional apt on regular bed as well x 4 to each direction with cues to push with leg and reach across body. Patient performed last rep without cues. ) Sit to Lying (QC): 6 (Sits up and brings legs onto bed, bends knees then lays down.) Sit to Stand (QC): 5 (SBA-mod (I) to FWW) Chair/Lrd-ll-Vcgyt Xfer(QC): 5 (SBA with FWW) Car Transfer (QC): 3 (Min (A) ) Gait Training Does the Patient Walk?: Yes Distance: 500' and 250' Walk 10 feet (QC): 6 Walk 50 ft with 2 Turns(QC): 5 (SBA-mod (I) due to patient being sleepy this a.m.) Walk 150 ft (QC): 5 (SBA-mod (I)) Walking 10ft/uneven surface-QC: 3 (min (A) with FWW) Gait Assistive Device: FWW Wheelchair Training Does the Pt Use a Wheelchair?: No Wheel 50 ft with 2 turns (QC): 9 Wheel 150 ft (QC): 9 Stair Training Stair Training: Handrails/: 2 handrails #of Steps: 6 1 Step (curb) (QC): 3 (Min (A) with cues for walker placement) 4 Steps (QC): 4 (CGA up/ down 4 steps x 3) 12 Steps (QC): 4 ((B) rails.) Stairs: Pattern: Reciprocal Balance Picking up an Object (QC): 5 (with FWW and lance crewmember/mlrs sergeant) ADL-Treatment Eating (QC): 6 Oral Hygiene (QC): 6 Shower/Bathe Self (QC): 5 (set up to cover incision) Upper Body Dressing (QC): 5 (set up with back brace.) Lower Body Dressing (QC): 4 On/Off Footwear (QC): 5 Toileting Hygiene (QC): 4 (supervision) Toilet Transfer (QC): 4 (Supervision) Assessment/Plan Assessment and Plan Assess & Plan/Chief Complaint Assessment: S/P L2-L5 lumbar laminectomy and L4-L5 fusion 02/02/2023 Anemia Paroxysmal Afib w/ RVR new onset post op Transaminitis HLD OA Depression Anxiety OAC P PT/OT for rehabilitation Continue home medications NSR at this time. Continue Cardizem 120mg PO QD and Eliquis 5mg PO BID Monitor LFT's 02/11/2023: Monitor pain Maintain BM regimen 02/12/2023: Monitor closely Fall risk 02/13/2023: Independent room Monitor closely 02/14/2023: Doing well 02/15/2023: Monitor closely (1) Lumbar stenosis without neurogenic claudication PATRICIA RUBI DO Feb 15, 2023 07:22
[2023-02-15 08:07] VITALS: BP 111/60
[2023-02-15] MEDS: VITAMIN D3 25 MCG (1,000 UNITS) TABLET PO SCH (08:15)
[2023-02-15] MEDS: ASPIRIN E.C. 81 MG (ECOTRIN) TAB PO SCH (08:16)
[2023-02-15] MEDS: OMEGA 3 (FISH OIL) 1000 MG CAP PO SCH ×2 (08:16→20:25)
[2023-02-15] MEDS: dilTIAZem120 MG (CARDIZEM CD) CAP PO SCH (08:16)
[2023-02-15] MEDS: APIXABAN 5 MG (ELIQUIS) TABLET PO SCH ×2 (08:16→20:25)
[2023-02-15] MEDS: FLUoxetine HCL 20 MG (PROzac) CAP PO SCH (08:16)
[2023-02-15] MEDS: SENNA W/DOCUSATE (SENOKOT S) TABLET PO SCH ×2 (08:20→20:30)
[2023-02-15] MEDS: polyethylene glycoL POWDER 17 GM (MIRALAX) PACK PO SCH ×2 (08:20→20:30)
[2023-02-15] MEDS: DOCUSATE SODIUM 100 MG (COLACE) CAP PO SCH ×2 (08:20→20:25)
--- NOTE | 2023-02-15 09:14 | Cardiology Progress Note ---
Subjective Date Seen by Provider: Feb 15, 2023 Time Seen by Provider: 09:13 Subjective/Events-last exam Patient was seen at bedside, laying down comfortably Reported that her knee buckled yesterday during physical therapy session but otherwise no new complaint Review of Systems General: No Chills, No Night Sweats; Fatigue; No Malaise, No Appetite, No Other HEENT: No Head Aches, No Visual Changes, No Eye Pain, No Ear Pain, No Dysphasia, No Sinus Congestion, No Post Nasal Drip, No Sore Throat, No Other Pulmonary: No Dyspnea, No Cough, No Pleuritic Chest Pain, No Other Cardiovascular: No: Chest Pain, Palpitations, Orthopnea, Paroxysmal Noc. Dyspnea, Edema, Lt Headedness, Other Objective-Cardiology Exam Last Set of Vital Signs Vital Signs 02/14/23 02/15/23 20:00 08:07 Temp 37.0 Pulse 69 Resp 18 B/P (MAP) 111/60 (77) Pulse Ox 96 O2 Delivery Room Air I&O Intake and Output 02/15/23 00:00 Intake Total 1230 ml Balance 1230 ml Intake Oral 1230 ml # Voids 7 # Bowel Movements 1 General: Alert, Oriented X3 HEENT: Atraumatic, PERRLA Lungs: Clear to Auscultation, Normal Air Movement Heart: Regular Rate, Normal S1, Normal S2 Abdomen: Normal Bowel Sounds, Soft Extremities: No Clubbing, No Cyanosis, No Edema Skin: No Rashes, No Significant Lesion Neuro: Normal Speech Psych/Mental Status: Mental Status NL, Mood NL Results Lab Laboratory Tests 02/15/23 06:25 A/P-Cardiology Admission Diagnosis PAF Elevated LFTs HLP DDD Assessment/Plan Paroxysmal atrial fibrillation, per records received from [facility], patient had brief episode AFib with RVR post op day 3 with HR in the 130s. Converted on Cardizem gtt and currently on PO Cardizem and Eliquis. Continue to monitor telemetry Degenerative disc disease, s/p lumbar laminectomy and L4-L5 fusion. Continue PT/OT Elevaetd LFTs, Transaminitis, unknown etiology, per records reviewed, thought to be secondary to use of statins. Improving slowly, still have significant elevation Continue to monitor HLP, was maintained on statin as outpatient, recently discontinued due to elevated liver enzymes Continue to monitor Anemia, continue to monitor H/H Anxiety/Depression, managment per medical services. TOMMIE WAGNER MD Feb 15, 2023 09:14
[2023-02-15] MEDS: CALCIUM CARBONATE 600 MG (CALCARB) TAB PO SCH (17:13)
[2023-02-15 19:24] VITALS: BP 131/69
[2023-02-16] MEDS: ACETAMINOPHEN 325 MG TABLET PO PRN ×2 (00:21→17:31)
[2023-02-16] MEDS: MELATONIN 3 MG TABLET PO PRN ×2 (00:21→20:55)
[2023-02-16] MEDS: BACLOFEN 10 MG (LIORESAL) TAB PO PRN (00:22)
--- NOTE | 2023-02-16 05:13 | PM&R Progress Note ---
Subjective HPI/CC On Admission Date Seen by Provider: Feb 16, 2023 Time Seen by Provider: 09:00 Subjective/Events-last exam 02/16/2023: DC planned tomorrow No concerns Patient is apprehensive 02/15/2023: Doing well No pain reported Knees gave out yesterday and it alarmed her Will talk to team and eval strength and fall risk prevention 02/14/2023: Doing well Pain controlled BM+ Walking well 02/13/2023: No major issues Moved to 226 independent room No falls No pain except when walking 02/12/2023: Much improved status No new issues BM regimen maintained No falls 02/11/2023: Much improved status BM+ after laxatives Pain improved Participation is good No falls Review of Systems General: Fatigue, Malaise Objective Exam Vital Signs Vital Signs Date Time Temp Pulse Resp B/P (MAP) Pulse Ox O2 Delivery O2 Flow Rate FiO2 02/16/23 20:40 9 Room Air 02/16/23 20:16 36.9 69 16 155/75 (101) Capillary Refill : General Appearance: No Apparent Distress, WD/WN, Anxious, Chronically ill HEENT: PERRL/EOMI, Normal ENT Inspection, Pharynx Normal Neck: Full Range of Motion, Normal Inspection, Non Tender, Supple, Carotid Bruit Respiratory: Chest Non Tender, Lungs Clear, Normal Breath Sounds, No Accessory Muscle Use, No Respiratory Distress Cardiovascular: Regular Rate, Rhythm, No Edema, No Gallop, No JVD, No Murmur, Normal Peripheral Pulses Gastrointestinal: Normal Bowel Sounds, No Organomegaly, No Pulsatile Mass, Non Tender, Soft Back: Normal Inspection, No Vertebral Tenderness, Decreased Range of Motion, Muscle Spasm, Vertebral Tenderness Extremity: Normal Capillary Refill, Normal Inspection, Normal Range of Motion, Non Tender, No Calf Tenderness, No Pedal Edema Neurologic/Psychiatric: Alert, Oriented x3, No Motor/Sensory Deficits, print shop helper II- XII Norm as Tested, Depressed Affect Skin: Normal Color, Warm/Dry Lymphatic: No Adenopathy Results/Procedures Lab Patient resulted labs reviewed. FIM Transfers Therapy Code Descriptions/Definitions Functional [place] Measure: 0=Not Assessed/NA 4=Minimal Assistance 1=Total Assistance 5=Supervision or Setup 2=Maximal Assistance 6=Modified [place] 3=Moderate Assistance 7=Complete IndependenceSCALE: Activities may be completed with or without assistive devices. 2-Tifysnmpmd-urjnlrd completes the activity by him/herself with no assistance from a helper. 5-Set-up or Clean-up Assistance-helper sets up or cleans up; patient completes activity. [place] assists only prior to or following the activity. 4-Supervision or Touching Assistance-helper provides verbal cues and/or touching/steadying and/or contact guard assistance as patient completes activity. Assistance may be provided throughout the activity or intermittently. 3-Partial/Moderate Assistance-helper does LESS THAN HALF the effort. [place] lifts, holds or supports trunk or limbs, but provides less than half the effort. 2-Substantial/Maximal Assistance-helper does MORE THAN HALF the effort. [place] lifts or holds trunk or limbs and provides more than half the effort. 2-Satsvufkt-mnzhpx does ALL the effort. Patient does none of the effort to complete the activity. Or, the assistance of 2 or more helpers is required for the patient to complete the activity. If activity was not attempted, code reason: 7-Patient Refused. 9-Not Applicable-not attempted and the patient did not perform the activity before the current illness, exacerbation or injury. 10-Not Attempted due to Environmental Limitations-(lack of equipment, weather restraints, etc.). 88-Not Attempted due to Medical Conditions or Safety Concerns. Roll Left to Right (QC): 5 (SBA with cues to use arm to reach across body to log roll on mat.Completed in transitional apt on regular bed as well x 4 to each direction with cues to push with leg and reach across body. Patient performed last rep without cues. ) Sit to Lying (QC): 6 (Sits up and brings legs onto bed, bends knees then lays down.) Sit to Stand (QC): 5 (SBA-mod (I) to FWW) Chair/Wch-gk-Dxssl Xfer(QC): 5 (SBA with FWW) Car Transfer (QC): 3 (Min (A) ) Gait Training Does the Patient Walk?: Yes Distance: 500' and 250' Walk 10 feet (QC): 6 Walk 50 ft with 2 Turns(QC): 5 (SBA-mod (I) due to patient being sleepy this a. m.) Walk 150 ft (QC): 5 (SBA-mod (I)) Walking 10ft/uneven surface-QC: 3 (min (A) with FWW) Gait Assistive Device: FWW Wheelchair Training Does the Pt Use a Wheelchair?: No Wheel 50 ft with 2 turns (QC): 9 Wheel 150 ft (QC): 9 Stair Training Stair Training: Handrails/: 2 handrails #of Steps: 6 1 Step (curb) (QC): 3 (Min (A) with cues for walker placement) 4 Steps (QC): 4 (CGA up/ down 4 steps x 3) 12 Steps (QC): 4 ((B) rails.) Stairs: Pattern: Reciprocal Balance Picking up an Object (QC): 5 (with FWW and visual educator) ADL-Treatment Eating (QC): 6 Oral Hygiene (QC): 6 Shower/Bathe Self (QC): 5 (set up to cover incision) Upper Body Dressing (QC): 5 (set up with back brace.) Lower Body Dressing (QC): 4 On/Off Footwear (QC): 5 Toileting Hygiene (QC): 4 (supervision) Toilet Transfer (QC): 4 (Supervision) Assessment/Plan Assessment and Plan Assess & Plan/Chief Complaint Assessment: S/P L2-L5 lumbar laminectomy and L4-L5 fusion 02/02/2023 Anemia Paroxysmal Afib w/ RVR new onset post op Transaminitis HLD OA Depression Anxiety OAC P PT/OT for rehabilitation Continue home medications NSR at this time. Continue Cardizem 120mg PO QD and Eliquis 5mg PO BID Monitor LFT's 02/11/2023: Monitor pain Maintain BM regimen 02/12/2023: Monitor closely Fall risk 02/13/2023: Independent room Monitor closely 02/14/2023: Doing well 02/15/2023: Monitor closely 02/16/2023: DC tomorrow (1) Lumbar stenosis without neurogenic claudication PATRICIA RUBI DO Feb 16, 2023 05:13
[2023-02-16] MEDS: MULTIVIT W/MINERALS TAB (THERAGRAN M) PO SCH (06:55)
[2023-02-16 08:35] VITALS: BP 146/71
[2023-02-16] MEDS: dilTIAZem120 MG (CARDIZEM CD) CAP PO SCH (08:41)
[2023-02-16] MEDS: ASPIRIN E.C. 81 MG (ECOTRIN) TAB PO SCH (08:41)
[2023-02-16] MEDS: VITAMIN D3 25 MCG (1,000 UNITS) TABLET PO SCH (08:41)
[2023-02-16] MEDS: FLUoxetine HCL 20 MG (PROzac) CAP PO SCH (08:42)
[2023-02-16] MEDS: APIXABAN 5 MG (ELIQUIS) TABLET PO SCH ×2 (08:42→20:56)
[2023-02-16] MEDS: OMEGA 3 (FISH OIL) 1000 MG CAP PO SCH ×2 (08:42→20:55)
[2023-02-16] MEDS: DOCUSATE SODIUM 100 MG (COLACE) CAP PO SCH ×2 (08:44→20:55)
[2023-02-16] MEDS: polyethylene glycoL POWDER 17 GM (MIRALAX) PACK PO SCH ×2 (08:45→20:25)
--- NOTE | 2023-02-16 08:51 | Cardiology Progress Note ---
Subjective Date Seen by Provider: Feb 16, 2023 Time Seen by Provider: 08:05 Subjective/Events-last exam Patient in bed, c/o back pain, denies any chest pain Objective-Cardiology Exam Last Set of Vital Signs Vital Signs 02/16/23 08:35 Temp 36.3 Pulse 72 Resp 18 B/P (MAP) 146/71 (96) Pulse Ox 95 O2 Delivery Room Air I&O Intake and Output 02/16/23 00:00 Intake Total 1700 ml Balance 1700 ml Intake Oral 1700 ml # Voids 7 General: Alert, Oriented X3 HEENT: Atraumatic, PERRLA Lungs: Clear to Auscultation, Normal Air Movement Heart: Regular Rate, Normal S1, Normal S2 Abdomen: Normal Bowel Sounds, Soft Extremities: No Clubbing, No Cyanosis, No Edema Skin: No Rashes, No Significant Lesion Neuro: Normal Speech Psych/Mental Status: Mental Status NL, Mood NL A/P-Cardiology Admission Diagnosis PAF Elevated LFTs HLP DDD Assessment/Plan Paroxysmal atrial fibrillation, per records received from [facility], patient had brief episode AFib with RVR post op day 3 with HR in the 130s. Converted on Cardizem gtt and currently on PO Cardizem and Eliquis. Telemetry showing sinus shythm. I will d/c tele Degenerative disc disease, s/p lumbar laminectomy and L4-L5 fusion. Continue PT/OT Elevaetd LFTs, Transaminitis, unknown etiology, per records reviewed, thought to be secondary to use of statins. Improving slowly, still have significant elevation Continue to monitor HLP, was maintained on statin as outpatient, recently discontinued due to e levated liver enzymes Continue to monitor Anemia, continue to monitor H/H Anxiety/Depression, managment per medical services. Supervisory-Addendum Brief Supervisory Addendum Participated in pt care: history, MDM, physical Personally performed: exam, history, MDM Care discussed with: DELIO Results interpretation: Verified all documentation Notes: Patient was seen and evaluated with Bria, examination performed, management plan was discussed, agree with the current scribed note, I made few changes to the note using Italic font Patient was seen at bedside, laying down comfortably, feeling better Still having leg weakness and back pain We will remove telemetry, continue to monitor BRIA LOZANO Feb 16, 2023 08:51 TOMMIE WAGNER MD Feb 16, 2023 09:19
[2023-02-16] MEDS: SENNA W/DOCUSATE (SENOKOT S) TABLET PO SCH ×2 (10:14→20:25)
[2023-02-16] MEDS: oxyCODONE/APAP 5/325MG (PERCOCET 5) TABLET PO PRN ×2 (11:01→20:56)
--- NOTE | 2023-02-16 11:24 | Occupational Ther Daily Note ---
OT Current Status-Daily Note Subjective Pt agreeable to OT tx Mental Status/Objective Patient Orientation: Person, Place, Time, Situation, Normal For Age ADL-Treatment Therapy Code Descriptions/Definitions Functional [place] Measure: 0=Not Assessed/NA 4=Minimal Assistance 1=Total Assistance 5=Supervision or Setup 2=Maximal Assistance 6=Modified [place] 3=Moderate Assistance 7=Complete IndependenceSCALE: Activities may be completed with or without assistive devices. 3-Nhzwjnmnqa-cvrmipc completes the activity by him/herself with no assistance from a helper. 5-Set-up or Clean-up Assistance-helper sets up or cleans up; patient completes activity. [place] assists only prior to or following the activity. 4-Supervision or Touching Assistance-helper provides verbal cues and/or touching/steadying and/or contact guard assistance as patient completes activity. Assistance may be provided throughout the activity or intermittently. 3-Partial/Moderate Assistance-helper does LESS THAN HALF the effort. [place] lifts, holds or supports trunk or limbs, but provides less than half the effort. 2-Substantial/Maximal Assistance-helper does MORE THAN HALF the effort. [place] lifts or holds trunk or limbs and provides more than half the effort. 0-Qmxhxenzb-oxmzte does ALL the effort. Patient does none of the effort to complete the activity. Or, the assistance of 2 or more helpers is required for the patient to complete the activity. If activity was not attempted, code reason: 7-Patient Refused. 9-Not Applicable-not attempted and the patient did not perform the activity before the current illness, exacerbation or injury. 10-Not Attempted due to Environmental Limitations-(lack of equipment, weather restraints, etc.). 88-Not Attempted due to Medical Conditions or Safety Concerns. Eating (QC): 6 Oral Hygiene (QC): 6 Shower/Bathe Self (QC): 5 (set up to cover incision only.) Upper Body Dressing (QC): 6 Lower Body Dressing (QC): 6 On/Off Footwear: 6 Toileting Hygiene (QC): 6 Toilet Transfer (QC): 6 Other Treatment Pt in bed, agreeable to OT Tx. Pt transferred supine to sit EOB, independently, donned back brace, then used FWW to gather clothes from closet independently. Pt transferred into bathroom, completing toileting, showering and dressing as outlined above. Pt used FWW to perform functional mobility to therapy gym. In order to increase BUE strength and activity tolerance, pt completed UE reaching task, completing x100 piece magnetic puzzle. Pt returned to her room using FWW, transferring to recliner IND. Post tx, pt in recliner, call light in reach and all needs met. Education OT Patient Education: Correct positioning, Energy conservation, Modified ADL techniques, Progress toward Goal/Update tx plan, Purpose of tx/functional activities, Rehab process Teaching Recipient: Patient Teaching Methods: Discussion Response to Teaching: Verbalize Understanding BIMS CAM BIMS Expression of Ideas and Wants: Without Difficulty Understanding Verbal Content: Understands Brief Interview/Mental Status: Yes IRF CHARLES BIMS: IRF CHARLES BIMS Response (Comments) Value Repitition of Three Words Three 3 Recalls Socks Yes, No Cue Required 2 Recalls Blue Yes, No Cue Required 2 Recalls Bed Yes, No Cue Required 2 Year Correct 3 Month Accurate Within 5 Days 2 Day Correct 1 Total 15 Should Staff Asses. Mental St.: No CAM Mental Status Change/Baseline: 0 Inattention: 0 Disorganized thinkin Altered level of consciousness: 0 OT Short Term Goals Short Term Goals Time Frame: Feb 18, 2023 Toileting hygiene: 5 Shower/bathe self: 5 Upper body dressin Lower body dressin Putting on/taking off footwear: 5 OT Substation Inspector Goals Halfway Goals Time Frame: Feb 27, 2023 Acute change in mental status: 0 Inattention: 0 Disorganized thinkin Altered level of consciousness: 0 Eating (QC): 6 (met) Oral Hygiene (QC): 6 (met) Toileting Hygiene (QC): 6 (met) Shower/Bathe Self (QC): 5 (met) Upper Body Dressing (QC): 6 (met) Lower Body Dressing (QC): 6 (met) On/Off Footwear (QC): 6 (met) Additional Goals: 1-Demonstrate ADL Tasks, 2-Verbalize Understanding, 3- ImproveStrength/Nicky 1=Demonstrate adherence to instructed precautions during ADL tasks. 2=Patient will verbalize/demonstrate understanding of assistive devices/modifications for ADL. 3=Patient will improve strength/tolerance for activity to enable patient to perform ADL's. OT Education/Plan Problem List/Assessment Assessment: Decreased Activ Tolerance, Decreased UE Strength, Impaired I ADL's Discharge Recommendations Plan/Recommendations: Continue POC Treatment Plan/Plan of Care Patient would benefit from OT for education, treatment and training to promote independence in ADL's, mobility, safety and/or upper extremity function for ADL's. Plan of Care: ADL Retraining, Functional Mobility, Group Exercise/Act as Ind, UE Funct Exercise/Act Treatment Duration: Feb 27, 2023 Frequency: At least 5 of 7 days/Wk (IRF) Estimated Hrs Per Day: 1.5 hours per day Agreement: Yes Rehab Potential: Good Time Start Time: 10:45 Stop Time: 12:15 DATE: Feb 16, 2023 Total Time Billed (hr/min): 90 Billed Treatment Time 1, ADL 4 (60'), FA 2 (30') ADRYAN QUICK OT Feb 16, 2023 11:24
--- NOTE | 2023-02-16 11:28 | Physical Therapy Daily Note ---
PT Daily Note-Current Subjective pt laying in bed upon arrival. nursing reported pt rt and both knee buckling over the weekend. pt reports no pain if knee buckling "she just monico and goes down" Pain Section J - Health Conditions 1. Rarely or not at all 2. Occasionally 3. Frequently 4. Almost constantly 8. Unable to answer Pain Effect on Sleep: 3 Pain Interference with Therapy: 2 Pain Interference w/Day-to-Day: 3 Mental Status Patient Orientation: Person, Place, Time, Situation Transfers SCALE: Activities may be completed with or without assistive devices. 7-Lbownurgkm-tlgkxui completes the activity by him/herself with no assistance from a helper. 5-Set-up or Clean-up Assistance-helper sets up or cleans up; patient completes activity. [place] assists only prior to or following the activity. 4-Supervision or Touching Assistance-helper provides verbal cues and/or touching/steadying and/or contact guard assistance as patient completes activity. Assistance may be provided throughout the activity or intermittently. 3-Partial/Moderate Assistance-helper does LESS THAN HALF the effort. [place] lifts, holds or supports trunk or limbs, but provides less than half the effort. 2-Substantial/Maximal Assistance-helper does MORE THAN HALF the effort. [place] lifts or holds trunk or limbs and provides more than half the effort. 6-Bwevqfdoz-jgjwly does ALL the effort. Patient does none of the effort to complete the activity. Or, the assistance of 2 or more helpers is required for the patient to complete the activity. If activity was not attempted, code reason: 7-Patient Refused. 9-Not Applicable-not attempted and the patient did not perform the activity before the current illness, exacerbation or injury. 10-Not Attempted due to Environmental Limitations-(lack of equipment, weather restraints, etc.). 88-Not Attempted due to Medical Conditions or Safety Concerns. Roll Left & Right (QC): 6 Sit to Lying (QC): 6 Lying to Sitting/Side of Bed(Q: 6 Sit to Stand (QC): 6 Chair/Iwt-al-Jjjmx Xfer(QC): 6 Toilet Transfer (QC): 6 Car Transfer (QC): 6 Weight Bearing Weight Bearing/Tolerated Weight Bearing/Tolerated Gait Training Walk 10 feet (QC): 6 Walk 50 ft with 2 Turns(QC): 6 Walk 150 ft (QC): 6 Walking 10ft/uneven surface-QC: 6 Gait Persons Needed: 1 Wheelchair Training Wheel 50 ft with 2 turns (QC): 6 Wheel 150 ft (QC): 6 Stair Training 1 Step (curb) (QC): 6 4 Steps (QC): 6 Exercises Supine Ex: LE Protocol, Quad Set, Glut sets, Short Arc Quads Seated Therapy Exercises: LE Protocol, Sit to stand, Long arc quads, Hamstring Curls, Reaching activity, Glut set Treatments pt was assessed in car transfers, dynamic standing and dynamic ambulation balance and well as long distance endurance ambulation this day. pt did require rest breaks secondary to fatigue but is able to begin again after a few minutes rest. Assessment Current Status: Good Progress PT Mcfp Goals Mcfp Goals PT Wireless Telegrapher Goals Time Frame: Feb 27, 2023 Roll Left & Right (QC): 6 (with use of bed rail/walker for rail) Sit to Lying (QC): 6 (with use of bed rail/walker for rail) Lying-Sitting on Side/Bed(QC): 6 (with use of bed rail/walker for rail) Sit to Stand (QC): 6 Chair/Yjd-bm-Nueyt Xfer(QC): 6 (with FWW) Toilet Transfer (QC): 6 (with FWW ) Car Transfer (QC): 5 (with FWW) Does the Patient Walk: Yes Walk 10 feet (QC): 6 (with FWW and TLSO) Walk 50ft with 2 Turns (QC): 6 (with FWW and TLSO) Walk 150 ft (QC): 6 (500' with FWW and TLSO) Walking 10ft on Uneven Surface: 6 (with FWW and TLSO) 1 Step (curb) (QC): 6 4 Steps (QC): 6 (with railings) 12 Steps (QC): 5 (with railings) Picking up an Object (QC): 6 (with advertising writer due to spine precautions) Does the Pt use WC or Scooter?: No Wheel 50 feet with 2 turns (QC: 9 Wheel 150 feet: 9 PT Plan Treatment/Plan Treatment Plan: Continue Plan of Care Treatment Plan: Bed Mobility, Education, Functional Activity Nicky, Functional Strength, Group Therapy, Gait, Safety, Therapeutic Exercise, Transfers, Other (stair/curb training) Treatment Duration: Feb 27, 2023 Frequency: At least 5 of 7 days/Wk (IRF) Estimated Hrs Per Day: 1.5 hours per day Patient and/or Family Agrees t: Yes Time Time In: 0900 Time Out: 1030 DATE: Feb 16, 2023 Total Billed Treatment Time: 90 Total Billed Treatment 1, gtx2, ex x 2, fa x 2 Prema Christianson PTA Feb 16, 2023 11:28
[2023-02-16] MEDS: CALCIUM CARBONATE 600 MG (CALCARB) TAB PO SCH (17:17)
[2023-02-16 20:16] VITALS: BP 155/75
[2023-02-17] MEDS ORDERED: BACL10TA PO (06:06)
[2023-02-17] MEDS ORDERED: OMEG100032 PO (06:06)
[2023-02-17] MEDS ORDERED: APIX5TAB PO (06:06)
[2023-02-17] MEDS ORDERED: DILT-8 PO (06:06)
[2023-02-17] MEDS ORDERED: OXYC1TAB11 PO (06:06)
[2023-02-17] MEDS ORDERED: FLUO40CA12 PO (06:06)
[2023-02-17] MEDS ORDERED: ASPI-1238 PO (06:06)
--- NOTE | 2023-02-17 06:09 | Discharge Summary ---
Diagnosis/Chief Complaint Date of Admission Feb 10, 2023 at 09:45 Date of Discharge Discharge Date: Feb 17, 2023 Discharge Diagnosis Assessment: S/P L2-L5 lumbar laminectomy and L4-L5 fusion 02/02/2023 Anemia Paroxysmal Afib w/ RVR new onset post op Transaminitis HLD OA Depression Anxiety OAC P PT/OT for rehabilitation Continue home medications NSR at this time. Continue Cardizem 120mg PO QD and Eliquis 5mg PO BID Monitor LFT's 02/11/2023: Monitor pain Maintain BM regimen 02/12/2023: Monitor closely Fall risk 02/13/2023: Independent room Monitor closely 02/14/2023: Doing well 02/15/2023: Monitor closely 02/16/2023: DC tomorrow Discharge Summary Discharge Physical Examination Allergies: Coded Allergies: promethazine (Verified Allergy, Mild, ANXIETY/JITTERS, 10/20/18) Vitals & I&Os Vital Signs Date Time Temp Pulse Resp B/P (MAP) Pulse Ox O2 Delivery O2 Flow Rate FiO2 02/17/23 11:51 36.8 74 16 123/62 97 Room Air General Appearance: Alert, Oriented X3, Cooperative Respiratory: Clear to Auscultation Cardiovascular: Regular Rate Psych/Mental Status: Mental Status NL Hospital Course Was the Problem List Reviewed?: Yes Uneventful course after moving from OSH to ARU for slow recovery from lumbar spine surgery. Overall she had no issues during her stay and her labs remained stable as did her vitals and she was able to regain independence quickly and she was ultimately DC in improved condition. Labs (last 24 hrs) Laboratory Tests 02/11/23 05:53: White Blood Count 5.2, Red Blood Count 3.41L, Hemoglobin 10.2L, Hematocrit 31L, Mean Corpuscular Volume 92, Mean Corpuscular Hemoglobin 30, Mean Corpuscular Hemoglobin Concent 33, Red Cell Distribution Width 13.7, Platelet Count 208, Mean Platelet Volume 10.0, Immature Granulocyte % (Auto) 1, Neutrophils (%) (Auto) 51, Lymphocytes (%) (Auto) 29, Monocytes (%) (Auto) 12, Eosinophils (%) (Auto) 5, Basophils (%) (Auto) 1, Neutrophils # (Auto) 2.7, Lymphocytes # (Auto) 1.5, Monocytes # (Auto) 0.6, Eosinophils # (Auto) 0.3, Basophils # (Auto) 0.1, Immature Granulocyte # (Auto) 0.1, Sodium Level 136, Potassium Level 4.1, Chloride Level 101, Carbon Dioxide Level 26, Anion Gap 9, Blood Urea Nitrogen 11, Creatinine 0.69, Estimat Glomerular Filtration Rate 89, BUN/Creatinine Ratio 16, Glucose Level 104, Calcium Level 8.7, Corrected Calcium 9.3, Total Bilirubin 0.7, Gamma Glutamyl Transpeptidase 625H, Aspartate Amino Transf (AST/SGOT) 829H, Alanine Aminotransferase (ALT/SGPT) 767H, Alkaline Phosphatase 421H, Total Protein 5.7L, Albumin 3.3 02/15/23 06:25: White Blood Count 7.8, Red Blood Count 4.04, Hemoglobin 12.2, Hematocrit 37, Mean Corpuscular Volume 91, Mean Corpuscular Hemoglobin 30, Mean Corpuscular Hemoglobin Concent 33, Red Cell Distribution Width 13.8, Platelet Count 316, Mean Platelet Volume 9.5, Immature Granulocyte % (Auto) 1, Neutrophils (%) (Auto) 69, Lymphocytes (%) (Auto) 19, Monocytes (%) (Auto) 8, Eosinophils (%) (Auto) 3, Basophils (%) (Auto) 1, Neutrophils # (Auto) 5.3, Lymphocytes # (Auto) 1.4, Monocytes # (Auto) 0.6, Eosinophils # (Auto) 0.2, Basophils # (Auto) 0.1, Immature Granulocyte # (Auto) 0.1, Sodium Level 137, Potassium Level 4.3, Chloride Level 102, Carbon Dioxide Level 22, Anion Gap 13, Blood Urea Nitrogen 13, Creatinine 0.73, Estimat Glomerular Filtration Rate 85, BUN/Creatinine Ratio 18, Glucose Level 109H, Calcium Level 9.1, Corrected Calcium 9.3, Total Bilirubin 0.5, Gamma Glutamyl Transpeptidase 662H, Aspartate Amino Transf (AST/SGOT) 73H, Alanine Aminotransferase (ALT/SGPT) 386H, Alkaline Phosphatase 436H, Total Protein 6.4, Albumin 3.7 Pending Labs Laboratory Tests 02/11/23 05:53: White Blood Count 5.2, Red Blood Count 3.41, Hemoglobin 10.2, Hematocrit 31, Mean Corpuscular Volume 92, Mean Corpuscular Hemoglobin 30, Mean Corpuscular Hemoglobin Concent 33, Red Cell Distribution Width 13.7, Platelet Count 208, Mean Platelet Volume 10.0, Immature Granulocyte % (Auto) 1, Neutrophils (%) (Auto) 51, Lymphocytes (%) (Auto) 29, Monocytes (%) (Auto) 12, Eosinophils (%) (Auto) 5, Basophils (%) (Auto) 1, Neutrophils # (Auto) 2.7, Lymphocytes # (Auto) 1.5, Monocytes # (Auto) 0.6, Eosinophils # (Auto) 0.3, Basophils # (Auto) 0.1, Immature Granulocyte # (Auto) 0.1, Sodium Level 136, Potassium Level 4.1, Chloride Level 101, Carbon Dioxide Level 26, Anion Gap 9, Blood Urea Nitrogen 11, Creatinine 0.69, Estimat Glomerular Filtration Rate 89, BUN/Creatinine Ratio 16, Glucose Level 104, Calcium Level 8.7, Corrected Calcium 9.3, Total Bilirubin 0.7, Gamma Glutamyl Transpeptidase 625, Aspartate Amino Transf (AST/SGOT) 829, Alanine Aminotransferase (ALT/SGPT) 767, Alkaline Phosphatase 421, Total Protein 5.7, Albumin 3.3 02/15/23 06:25: White Blood Count 7.8, Red Blood Count 4.04, Hemoglobin 12.2, Hematocrit 37, Mean Corpuscular Volume 91, Mean Corpuscular Hemoglobin 30, Mean Corpuscular Hemoglobin Concent 33, Red Cell Distribution Width 13.8, Platelet Count 316, Mean Platelet Volume 9.5, Immature Granulocyte % (Auto) 1, Neutrophils (%) (Auto) 69, Lymphocytes (%) (Auto) 19, Monocytes (%) (Auto) 8, Eosinophils (%) (Auto) 3, Basophils (%) (Auto) 1, Neutrophils # (Auto) 5.3, Lymphocytes # (Auto) 1.4, Monocytes # (Auto) 0.6, Eosinophils # (Auto) 0.2, Basophils # (Auto) 0.1, Immature Granulocyte # (Auto) 0.1, Sodium Level 137, Potassium Level 4.3, Chloride Level 102, Carbon Dioxide Level 22, Anion Gap 13, Blood Urea Nitrogen 13, Creatinine 0.73, Estimat Glomerular Filtration Rate 85, BUN/Creatinine Ratio 18, Glucose Level 109, Calcium Level 9.1, Corrected Calcium 9.3, Total Bilirubin 0.5, Gamma Glutamyl Transpeptidase 662, Aspartate Amino Transf (AST/SGOT) 73, Alanine Aminotransferase (ALT/SGPT) 386, Alkaline Phosphatase 436, Total Protein 6.4, Albumin 3.7 Discharge Home Medications: Active Scripts Active Baclofen 10 Mg Tablet 10 Mg PO Q6HR PRN Fish Oil 1,000 mg Softgel ([place]-3/Dha/Epa/Fish Oil) 1,000 Mg (120 Mg-180 Mg) Capsule 1,000 Mg PO BID Prozac (Fluoxetine HCl) 40 Mg Capsule 40 Mg PO DAILY Aspirin EC (Aspirin) 81 Mg Tablet.dr 81 Mg PO DAILY Tiazac (Diltiazem HCl) 120 Mg Capsule.er 120 Mg PO DAILY Eliquis (Apixaban) 5 Mg Tablet 5 Mg PO BID Oxycodone-Acetaminophen 5-325 (Oxycodone HCl/Acetaminophen) 5 Mg-325 Mg Tablet 1-2 Each PO Q6H PRN Reported Co Q-10 100 mg Softgel (Ubidecarenone/Vit E Acetate) 100 Mg-5 Unit Capsule 1 Each PO HS Vitamin D3 (Cholecalciferol (Vitamin D3)) 25 Mcg (1000 Unit) Tablet 25 Mcg PO DAILY Multivitamin 1 Each Tablet 1 Each PO DAILY Osteo Bi-Flex Tablet (Glucosamine/D3/Boswellia Maribel) 1,500 Mg-400 Unit-100 Mg Tablet 1 Each PO BID Calcium (Calcium Carbonate) 600 Mg Calcium (1500 Mg) Tablet 600 Mg PO HS Docusate Sodium 100 Mg Capsule 100 Mg PO BID Instructions to patient/family Please see electronic discharge instructions given to patient. Diagnosis/Problems Diagnosis/Problems (1) Lumbar stenosis without neurogenic claudication Clinical Quality Measures DVT/VTE Risk/Contraindication: Contraindications-Pharm: Other *list below* Other: spinal surgery PATRICIA RUBI DO Feb 17, 2023 06:09
--- NOTE | 2023-02-17 06:09 | D/C HH Face to Face Order ---
D/C HH Face to Face Orders Reconcile Patient Problems Problems Reviewed?: Yes Instructions for Patient HH Patient Instructions/FollowUp: pcp 1 week Physician to follow Patient: pcp Discharge Diet for Home: No Restrictions Patient Problems: lumbar spine surgery A fib Patient Data-Allergies,Ht & Wt Patient Allergies: Coded Allergies: promethazine (Verified Allergy, Mild, ANXIETY/JITTERS, 10/20/18) Height (Feet): 5 Height (Inches): 2.00 Weight (Pounds): 180 Weight (Ounces): 0.0 Home Health Need/Face to Face Date of Face to Face: Feb 17, 2023 Clinical Findings: Generalized weakness and fatigue, Instability, Muscle weakness I have seen Pt [id number]: Yes Discharged To: Home Diagnosis/Conditions: Lumbar spine surgery Patient is Homebound due to: Regis fall risk due to instabilty, Muscle weakness Homebound Status Due to the above stated illness, injury or surgical procedure (medical condition or diagnosis) and associated clinical findings, the patient is homebound because of his/her inability to leave home except with aid of a supportive device and/or person AND leaving the home requires a considerable and taxing effort or is medically contraindicated. Pt req the following assistanc: Walker Home Health Nursing Orders Home Health Services Order: Nursing Services, Real Estate [employer] Principal-Evaluate & Treat, Physical Therapy-Evaluate & Treat Certify Stmt I certify that this patient is under my care and that I, a nurse practitioner or a physician; a assistant store manager operations working with me, had a face to face encounter that - meets the physician face to face encounter requirements with this patient as dated. PATRICIA RUBI DO Feb 17, 2023 06:09
[2023-02-17] MEDS: MULTIVIT W/MINERALS TAB (THERAGRAN M) PO SCH (06:48)
[2023-02-17] MEDS: BACLOFEN 10 MG (LIORESAL) TAB PO PRN (06:52)
[2023-02-17 07:32] VITALS: BP 123/62
[2023-02-17] MEDS: FLUoxetine HCL 20 MG (PROzac) CAP PO SCH (08:01)
[2023-02-17] MEDS: ASPIRIN E.C. 81 MG (ECOTRIN) TAB PO SCH (08:01)
[2023-02-17] MEDS: VITAMIN D3 25 MCG (1,000 UNITS) TABLET PO SCH (08:01)
[2023-02-17] MEDS: APIXABAN 5 MG (ELIQUIS) TABLET PO SCH (08:01)
[2023-02-17] MEDS: dilTIAZem120 MG (CARDIZEM CD) CAP PO SCH (08:01)
[2023-02-17] MEDS: OMEGA 3 (FISH OIL) 1000 MG CAP PO SCH (08:01)
[2023-02-17] MEDS: DOCUSATE SODIUM 100 MG (COLACE) CAP PO SCH (08:02)
[2023-02-17] MEDS: polyethylene glycoL POWDER 17 GM (MIRALAX) PACK PO SCH (08:02)
[2023-02-17] MEDS: SENNA W/DOCUSATE (SENOKOT S) TABLET PO SCH (08:03)
--- NOTE | 2023-02-17 08:53 | Cardiology Progress Note ---
Subjective Date Seen by Provider: Feb 17, 2023 Time Seen by Provider: 08:15 Subjective/Events-last exam Patient is sitting up at bedside, no new complaints. Objective-Cardiology Exam Last Set of Vital Signs Vital Signs 02/17/23 02/17/23 07:32 09:38 Temp 36.8 Pulse 74 Resp 16 B/P (MAP) 123/62 (82) Pulse Ox 97 O2 Delivery Room Air I&O Intake and Output 02/17/23 00:00 Intake Total 1860 ml Balance 1860 ml Intake Oral 1860 ml # Voids 8 # Bowel Movements 2 General: Alert, Oriented X3 HEENT: Atraumatic, PERRLA Lungs: Clear to Auscultation, Normal Air Movement Heart: Regular Rate, Normal S1, Normal S2 Abdomen: Normal Bowel Sounds, Soft Extremities: No Clubbing, No Cyanosis, No Edema Skin: No Rashes, No Significant Lesion Neuro: Normal Speech Psych/Mental Status: Mental Status NL, Mood NL A/P-Cardiology Admission Diagnosis PAF Elevated LFTs HLP DDD Assessment/Plan Paroxysmal atrial fibrillation, per records received from [facility], patient had brief episode AFib with RVR post op day 3 with HR in the 130s. Converted on Cardizem gtt and currently on PO Cardizem and Eliquis. Telemetry showing sinus shythm. Degenerative disc disease, s/p lumbar laminectomy and L4-L5 fusion. Continue PT/OT Elevaetd LFTs, Transaminitis, unknown etiology, per records reviewed, thought to be secondary to use of statins. Improving slowly, still have significant elevation Continue to monitor HLP, was maintained on statin as outpatient, recently discontinued due to elevated liver enzymes Continue to monitor Anemia, continue to monitor H/H Anxiety/Depression, managment per medical services. Supervisory-Addendum Brief Supervisory Addendum Participated in pt care: history, MDM, physical Personally performed: exam, history, MDM Care discussed with: DELOI Results interpretation: Verified all documentation Notes: Patient was seen and evaluated with Bria, has been doing well, discussed medical plan, recommended follow-up as an outpatient Report BRIA LOZANO Feb 17, 2023 08:53 TOMMIE WAGNER MD Feb 17, 2023 10:27
--- NOTE | 2023-02-17 09:17 | Therapy Team Discharge Summary ---
Therapy Discharge Summary Discharge Recommendations Date of Discharge Physical Therapy Patient admitted s/p lumbar laminectomy and fusion. Is independent in managing TLSO. At time of discharge, patient was staying in ARU transitional apt and was independent with all bed mobility and transfers/gait with the walker and was (I) with steps using railing. Roll Left to Right (QC): 6 Sit to Lying (QC): 6 Lying to Sitting/Side of Bed(Q: 6 Sit to Stand (QC): 6 Chair/Vfl-lx-Ipcii Xfer(QC): 6 Toilet Transfer (QC): 5 Car Transfer (QC): 6 Does the Patient Walk: Yes Mode of Locomotion: Walk Anticipated Mode of Locomotion: Walk Walk 10 feet (QC): 6 Walk 50 ft with 2 Turns(QC): 6 Walk 150 ft (QC): 6 Walking 10ft on uneven surface: 6 Distance: 250' with FWW Gait Assistive Device: FWW Does the Pt Use a Wheelchair: No Wheel 50 ft with 2 turns (QC): 6 Wheel 150 ft (QC): 6 #of Steps: 6 1 Step (curb) (QC): 6 4 Steps (QC): 6 12 Steps (QC): 4 ((B) rails.) Walking Assistive Device: Walker Balance Sitting Static: Good Balance Sitting Dynamic: Fair Balance-Standing Static: Fair Picking up an Object (QC): 6 (with FWW and lumber piler) Occupational Therapy Decreased Activ Tolerance, Decreased UE Strength, Impaired I ADL's Eating (QC): 6 Oral Hygiene (QC): 6 Shower/Bathe Self (QC): 5 (set up to cover incision only.) Upper Body Dressing (QC): 6 Lower Body Dressing (QC): 6 On/Off Footwear (QC): 6 Toileting Hygiene (QC): 6 PT Research Consultant Goals Research Consultant Goals PT Nursing Home Goals Time Frame: Feb 27, 2023 Roll Left to Right (QC): 6 (with use of bed rail/walker for rail) Sit to Lying (QC): 6 (with use of bed rail/walker for rail) Lying-Sitting on Side/Bed(QC): 6 (with use of bed rail/walker for rail) Sit to Stand (QC): 6 Chair/Tiz-nr-Btmxd Xfer(QC): 6 (with FWW) Toilet/Commode Transfer (QC): 6 (with FWW ) Car Transfer (QC): 5 (with FWW) Does the Patient Walk: Yes Walk 10 feet (QC): 6 (with FWW and TLSO) Walk 10ft-Uneven Surface(QC): 6 (with FWW and TLSO) Walk 50ft with 2 Turns (QC): 6 (with FWW and TLSO) Walk 150 ft (QC): 6 (500' with FWW and TLSO) Does the Pt use WC or Scooter?: No Wheel 50 feet with 2 turns (QC: 9 Wheel 150 feet: 9 1 Step (curb) (QC): 6 4 Steps (QC): 6 (with railings) 12 Steps (QC): 5 (with railings) Picking up an Object (QC): 6 (with lumber piler due to spine precautions) OT Research Consultant Goals Research Consultant Goals Time Frame: Feb 27, 2023 Acute change in mental status: 0 Inattention: 0 Disorganized thinkin Altered level of consciousness: 0 Eating (QC): 6 (met) Oral Hygiene (QC): 6 (met) Toileting Hygiene (QC): 6 (met) Shower/Bathe Self (QC): 5 (met) Upper Body Dressing (QC): 6 (met) Lower Body Dressing (QC): 6 (met) On/Off Footwear (QC): 6 (met) Additional Goals: 1-Demonstrate ADL Tasks, 2-Verbalize Understanding, 3- ImproveStrength/Nicky 1=Demonstrate adherence to instructed precautions during ADL tasks. 2=Patient will verbalize/demonstrate understanding of assistive devices/modifications for ADL. 3=Patient will improve strength/tolerance for activity to enable patient to perform ADL's. Jennifer Morris PT Feb 17, 2023 09:17
--- NOTE | 2023-02-17 11:40 | Therapy Team Discharge Summary ---
Therapy Discharge Summary Discharge Recommendations Date of Discharge Physical Therapy Roll Left to Right (QC): 6 Sit to Lying (QC): 6 Lying to Sitting/Side of Bed(Q: 6 Sit to Stand (QC): 6 Chair/Uzx-sh-Wwvyu Xfer(QC): 6 Toilet Transfer (QC): 5 Car Transfer (QC): 6 Does the Patient Walk: Yes Mode of Locomotion: Walk Anticipated Mode of Locomotion: Walk Walk 10 feet (QC): 6 Walk 50 ft with 2 Turns(QC): 6 Walk 150 ft (QC): 6 Walking 10ft on uneven surface: 6 Distance: 250' with FWW Gait Assistive Device: FWW Does the Pt Use a Wheelchair: No Wheel 50 ft with 2 turns (QC): 6 Wheel 150 ft (QC): 6 #of Steps: 6 1 Step (curb) (QC): 6 4 Steps (QC): 6 12 Steps (QC): 4 ((B) rails.) Walking Assistive Device: Walker Balance Sitting Static: Good Balance Sitting Dynamic: Fair Balance-Standing Static: Fair Picking up an Object (QC): 6 (with FWW and mainspring former brace end) Occupational Therapy Pt admitted to [facility] s/p decompressive lumbar lami L2-5. At [facility], pt was independent with ADLs and functional mobility without AD. Upon initial evaluation, pt was independent with eating, required CGA oral care and showering , min A UE/LE dressing and toileting, and SBA footwear. OT tx focused on increasing BUE strength and activity tolerance, and increasing safety and independence with ADLs and functional mobility. Pt made good progress towards goals, attaining all LTGs. OT recommendations include SC. Pt discharged home, d/c from OT. Decreased Activ Tolerance, Decreased UE Strength, Impaired I ADL's Eating (QC): 6 Oral Hygiene (QC): 6 Shower/Bathe Self (QC): 5 (set up to cover incision only.) Upper Body Dressing (QC): 6 Lower Body Dressing (QC): 6 On/Off Footwear (QC): 6 Toileting Hygiene (QC): 6 PT Audit Spec Goals Audit Spec Goals PT Audit Spec Goals Time Frame: Feb 27, 2023 Roll Left to Right (QC): 6 (with use of bed rail/walker for rail) Sit to Lying (QC): 6 (with use of bed rail/walker for rail) Lying-Sitting on Side/Bed(QC): 6 (with use of bed rail/walker for rail) Sit to Stand (QC): 6 Chair/Ilp-hf-Lzabs Xfer(QC): 6 (with FWW) Toilet/Commode Transfer (QC): 6 (with FWW ) Car Transfer (QC): 5 (with FWW) Does the Patient Walk: Yes Walk 10 feet (QC): 6 (with FWW and TLSO) Walk 10ft-Uneven Surface(QC): 6 (with FWW and TLSO) Walk 50ft with 2 Turns (QC): 6 (with FWW and TLSO) Walk 150 ft (QC): 6 (500' with FWW and TLSO) Does the Pt use WC or Scooter?: No Wheel 50 feet with 2 turns (QC: 9 Wheel 150 feet: 9 1 Step (curb) (QC): 6 4 Steps (QC): 6 (with railings) 12 Steps (QC): 5 (with railings) Picking up an Object (QC): 6 (with mainspring former brace end due to spine precautions) OT Audit Spec Goals Audit Spec Goals Time Frame: Feb 27, 2023 Acute change in mental status: 0 Inattention: 0 Disorganized thinkin Altered level of consciousness: 0 Eating (QC): 6 (met) Oral Hygiene (QC): 6 (met) Toileting Hygiene (QC): 6 (met) Shower/Bathe Self (QC): 5 (met) Upper Body Dressing (QC): 6 (met) Lower Body Dressing (QC): 6 (met) On/Off Footwear (QC): 6 (met) Additional Goals: 1-Demonstrate ADL Tasks, 2-Verbalize Understanding, 3- ImproveStrength/Nicky 1=Demonstrate adherence to instructed precautions during ADL tasks. 2=Patient will verbalize/demonstrate understanding of assistive devices/modifications for ADL. 3=Patient will improve strength/tolerance for activity to enable patient to perform ADL's. ADRYAN QUICK OT Feb 17, 2023 11:40
[2023-02-17 11:51] VITALS: BP 123/62
== END 2023-02-17 11:30 | disposition home health service (06) | DRG 561 ==
PROVIDERS: ADMIT Internal Medicine; ATTEND Internal Medicine
DX: Z47.89 Encounter for other orthopedic aftercare (principal); Z98.1 Arthrodesis status; R74.01 Elevation of levels of liver transaminase levels; I48.0 Paroxysmal atrial fibrillation; R53.83 Other fatigue; R53.81 Other malaise; D64.9 Anemia, unspecified; K59.00 Constipation, unspecified; E78.00 Pure hypercholesterolemia, unspecified; M19.90 Unspecified osteoarthritis, unspecified site; F32.A Depression, unspecified; F41.9 Anxiety disorder, unspecified; H54.3 Unqualified visual loss, both eyes; Z91.81 History of falling; Z79.899 Other long term (current) drug therapy; Z79.82 Long term (current) use of aspirin; Z79.01 Long term (current) use of anticoagulants
CPT/HCPCS: 36415; 80053; 82977; 85025; 93005

== ENCOUNTER → 2023-03-20 | Day surgery (SDC) | payer MEDICARE, OTHER ==
[~2023-03-20] VITALS: Ht 157 cm; Wt 75.0 kg
[~2023-03-20] MED LIST changes: -ALPRAZolam 0.25 MG (XANAX) TAB PO PRN; +APIX5TAB PO; +ASPI-1238 PO; +BACL10TA PO; -BISACODYL 10 MG SUPP (DULCOLAX) PR PRN; +CALC600T91 PO; -CALCIUM CARBONATE 500 MG (TUMS) TAB.CHEW PO PRN; +CHOL-34 PO; +DILT-8 PO; +DOCU100C37 PO; -DOCUSATE SODIUM 100 MG (COLACE) CAP PO PRN; -FLEET ENEMA ADULT 1 EA BTL PR PRN; +GLUC-219 PO; -LACTULOSE SYRUP 10GM/15ML (ENULOSE) 30ML UDC PO PRN; +LIDOCAINE 1% INJ 20 ML VIAL INJ ONE; +LIDOCAINE 1% INJ 20 ML VIAL ONE; -LOPERAMIDE 2 MG (IMODIUM) TABLET PO PRN; +MULT-1136 PO; +OMEG100032 PO; +OXYC1TAB11 PO; +UBID1CAP53 PO; -diphenhydrAMINE 25 MG TAB (BENADRYL) PO PRN; -guaiFENesin/CODEINE (ROBITUSSIN AC) 10ML UDC PO PRN
--- NOTE | 2023-03-20 12:03 | Implantation of Loop Monitor ---
Implant of Loop Monitior IMPLANTATION OF LOOP MONITOR REPORT DATE OF PROCEDURE: 03/20/23 PREOP DIAGNOSIS: Paroxysmal atrial fibrillation POSTOP DIAGNOSIS: Paroxysmal atrial fibrillation PROCEDURE DETAILS: The patient is a 77 female with history of paroxysmal atrial fibrillation requiring long-term surveillance. Therefore implantable loop recorder was discussed and agreed with the patient. Informed consent was taken. All risks and complications were discussed at length. The patient was draped and prepped in the usual sterile fashion. Local anesthesia was lidocaine, which was given in the substernal area close to the 4th intercostal space. Loop monitor 2Win-[employer] with serial number [id number] was implanted according to the protocol. Steri- Strips were placed at the end of the procedure. There were no complications and the patient tolerated the procedure well. The device was interrogated with a voltage of. ANESTHESIA: Local anesthesia with lidocaine. COMPLICATIONS: None CONTRAST/FLUOROSCOPY: None CONCLUSION: Successful implantation of loop monitor with no complication FINAL DIAGNOSIS: Paroxysmal atrial fibrillation Palpitation Hypertension TOMMIE WAGNER MD March 20, 2023 12:03
== END ==
LOC: CATH 10:19
PROVIDERS: ATTEND Internal Medicine Cardiovascular Disease
DX: I48.0 Paroxysmal atrial fibrillation (principal); I65.23 Occlusion and stenosis of bilateral carotid arteries; E78.5 Hyperlipidemia, unspecified; D64.9 Anemia, unspecified; Z79.01 Long term (current) use of anticoagulants; Z79.899 Other long term (current) drug therapy; Z98.1 Arthrodesis status
CPT/HCPCS: 33285; C1764

== ENCOUNTER → 2023-10-12 | Outpatient (CLI) | payer MEDICARE, OTHER ==
[~2023-10-12] MED LIST changes: +CATHETER FLUSH 10 ML SYR IVP PRN; -LIDOCAINE 1% INJ 20 ML VIAL INJ ONE; -LIDOCAINE 1% INJ 20 ML VIAL ONE; +REGADENOSON 0.4 MG/5 ML SYR IV ONE
[2023-10-12 09:12] VITALS: BP 141/81
--- NOTE | 2023-10-12 16:20 | Cardiology Stress Test Report ---
Stress Test Report Date of Procedure/Referring: Date of Procedure: Oct 12, 2023 PCP Marian Cook DO Admitting Physician Admitting Physician: Attending Physician: Tommie Peterson MD Baseline Heart Rate: 60 Baseline Blood Pressure: Blood Pressure Systolic: 141 Blood Pressure Diastolic: 81 Baseline Vitals Vital Signs Date Time Temp Pulse Resp B/P (MAP) Pulse Ox O2 Delivery O2 Flow Rate FiO2 10/12/23 09:12 60 141/81 (101) Baseline EKG: Baseline EKG: NSR Summary After explaining the procedure to the patient, she signed a consent and then brought to the stress nuclear laboratory. Patient received 0.4 mg Lexiscan for stress test, ECG, heart rate and blood pressure were monitored continuously. Resting and stress dose of radio tracer were injected, imaging was acquired and reviewed in short axis, horizontal long axis and vertical long axis views. TID: 0.98 SSS: 3 SDS: 3 EF: 59 Patient tolerated Lexiscan well Breast attenuation with typical female pattern, no significant ischemia or infarction noted on SPECT images Normal left ventricular size, ejection fraction 59% TOMMIE PETERSON MD Oct 12, 2023 16:20
== END ==
LOC: CARD 07:34
PROVIDERS: ATTEND Internal Medicine Cardiovascular Disease
DX: I10 Essential (primary) hypertension (principal); I25.10 Atherosclerotic heart disease of native coronary artery without angina pectoris; N64.89 Other specified disorders of breast
CPT/HCPCS: 78452; 93017; A9502